=== PATIENT | male | born 1935 | race Caucasian/White ===

== ENCOUNTER → 2017-06-09 | Outpatient (CLI) | payer MEDICARE, BC ==
[2017-06-09 15:21] LABS: HCT 28.9 % (39.0-53.0); HGB 8.7 gm/dL (13.0-17.5); Hypochromasia Marked; MCHC 30.2 g/dL (31.0-37.0); Macrocytosis Slight; Mean Platelet Volume 8.2; Platelet Count 245 k/uL (150-450); Poikilocytosis Slight; RDW 15.6 % (11.5-15.5); WBC 5.2 k/uL (3.8-10.6)
[2017-06-09 15:23] LABS: MCV 99.4 fL (80.0-100.0)
[2017-06-09 15:26] LABS: Appearance,Urine Cloudy (Clear); Bacteria,Urine Few /hpf; Bilirubin,Urine Negative (Negative); Blood,Urine Negative (Negative); Color,Urine Light Yellow; Glucose,Urine (UA) Negative (Negative); Hyaline Casts,Urine 6 /lpf (0-2); Ketones,Urine Negative (Negative); Leukocyte Esterase,Urine Large (Negative); Mucus,Urine Rare /hpf; Nitrite,Urine Negative (Negative); PH, Urine 6.5 (5.0-8.0); Protein,Urine Negative (Negative); RBC,Urine 2 /hpf (0-5); Specific Gravity,Urine 1.006 (1.001-1.035); Urobilinogen,Urine <2.0 mg/dL (<2.0); WBC,Urine >182 /hpf (0-5)
[2017-06-09 15:36] LABS: Albumin 3.7 g/dL (3.5-5.0); Calcium 9.5 mg/dL (8.4-10.2); Phosphorus 4.2 mg/dL (2.5-4.5); Total Bilirubin 0.3 mg/dL (0.2-1.3); Total Protein 6.3 g/dL (6.3-8.2)
[2017-06-09 15:39] LABS: Potassium 5.8 mmol/L (3.5-5.1)
== END | disposition home or self-care (01) ==
LOC: LABWHC1 14:37
PROVIDERS: ATTEND Family Medicine
DX: N18.4 Chronic kidney disease, stage 4 (severe) (principal); R89.9 Unspecified abnormal finding in specimens from other organs, systems and tissues
CPT/HCPCS: 36415; 80053; 81001; 84100; 85027; 87077; 87086; 87186

== ENCOUNTER → 2017-06-09 | Outpatient (CLI) | payer MEDICARE, BC ==
--- NOTE | 2017-06-09 14:34 | US ---
EXAMINATION TYPE: US kidneys/renal and bladder DATE OF EXAM: 06/09/2017 COMPARISON: NONE CLINICAL HISTORY: N18.4 CHR KIDNEY DISEASE. EXAM MEASUREMENTS: Right Kidney: 9.6 x 4.2 x 6.2 cm Left Kidney: 10.1 x 4.4 x 5.3 cm Right Kidney: No hydronephrosis or masses seen Left Kidney: several cysts, largest measures 1.8 x 1.7 x 1.7 cm laterally. Bladder: wnl Bilateral Jets seen: No There is no evidence for hydronephrosis at this point in time. No nephrolithiasis is seen. No abida s are identified. The urinary bladder is anechoic. Bilateral ureteral jets are seen. IMPRESSION: Simple cyst left kidney.
== END | disposition home or self-care (01) ==
LOC: RADUSWWP 13:58
PROVIDERS: ATTEND Family Medicine
DX: N28.1 Cyst of kidney, acquired (principal); N18.4 Chronic kidney disease, stage 4 (severe)
CPT/HCPCS: 36415; 76770; 80053; 81001; 84100; 85027; 87077; 87086; 87186

== ENCOUNTER 2017-06-11 18:10 | Emergency (ER) | payer MEDICARE, BC ==
[2017-06-11 18:37] VITALS: RESP 18
--- NOTE | 2017-06-11 19:26 | ED ---
General Adult HPI - General Chief complaint: Dizziness Stated complaint: Low hemoglobin Time Seen by Provider: 06/11/17 19:10 Source: patient, RN notes reviewed, old records reviewed Mode of arrival: wheelchair Limitations: no limitations - History of Present Illness Initial comments: 82-year-old male presents for evaluation of lightheadedness and dizziness. Symptoms are consistent with patient's anemia. He states he feels like this when his blood counts are low. He has history of GI bleed, with no specific location of bleeding. He has had multiple endoscopies. Patient did have an episode several months ago where he underwent endoscopy and had a cardiac arrest. He does not want any further evaluation of his GI bleeding. He also has history of CK D. Patient is not currently on dialysis. Patient states he has some rectal bleeding from time to time. No melena. Patient denies chest pain or shortness of breath. Denies fever or chills. Patient does report bilateral lower extremity swelling. - Related Data Home Medications Medication Instructions Recorded Confirmed Atorvastatin [Lipitor] 20 mg PO DAILY@2100 05/10/17 06/11/17 Bumetanide 2 mg PO DAILY 05/10/17 06/11/17 Calcium Acetate [Phoslo] 667 mg PO TID-W/MEALS 05/10/17 06/11/17 Carvedilol [Coreg] 3.125 mg PO BID 05/10/17 06/11/17 Ferrous Sulfate [Feosol] 325 mg PO BID 05/10/17 06/11/17 Folic Acid 1 mg PO DAILY 05/10/17 06/11/17 HYDROcodone/APAP 5-325MG [[place] 1 tab PO Q6H PRN 05/10/17 06/11/17 5-325] Nitroglycerin Sl Tabs [Nitrostat] 0.4 mg SUBLINGUAL Q5M PRN 05/10/17 06/11/17 Polyethylene Glycol 3350 [Miralax] 17 gm PO DAILY 05/10/17 06/11/17 Spironolactone 50 mg PO Q48H 05/10/17 06/11/17 Januvia (Unknown Strength) 1 tab PO DAILY 06/11/17 06/11/17 Sodium Polystyrene Sulfonate 15 gm PO BID 06/11/17 06/11/17 [Kayexalate] Allergies Allergy/AdvReac Type Severity Reaction Status Date / Time No Known Allergies Allergy Verified 06/11/17 19:43 Review of Systems ROS Statement: Those systems with pertinent positive or pertinent negative responses have been documented in the HPI. ROS Other: All systems not noted in ROS Statement are negative. Past Medical History Past Medical History: Atrial Flutter, Heart Failure, COPD, Hyperlipidemia, Hypertension, Myocardial Infarction ([place]) Additional Past Medical History / Comment(s): low hgb History of Any Multi-Drug Resistant Organisms: None Reported Past Surgical History: Cardiac Valve Replacement, Cholecystectomy, Heart Catheterization With Stent Past Psychological History: No Psychological Hx Reported Smoking Status: Never smoker Past Alcohol Use History: Occasional Past Drug Use History: None Reported General Exam Limitations: no limitations Course Vital Signs 06/11/17 06/11/17 06/11/17 18:35 19:25 20:23 Temperature 97.1 F L Pulse Rate 79 81 Pulse Rate [ 73 Independent Producer ] Respiratory 18 18 Rate Blood Pressure 162/59 131/53 O2 Sat by Pulse 98 100 Oximetry 06/11/17 06/11/17 06/11/17 20:40 20:45 20:55 Temperature 98.0 F 98 F 97.8 F Pulse Rate 74 77 69 Pulse Rate [ Independent Producer ] Respiratory 18 18 18 Rate Blood Pressure 113/52 131/66 140/85 O2 Sat by Pulse Oximetry 06/11/17 06/11/17 06/11/17 21:10 21:40 22:44 Temperature 97.9 F 97.3 F L 97.7 F Pulse Rate 72 68 82 Pulse Rate [ Independent Producer ] Respiratory 18 18 18 Rate Blood Pressure 122/60 120/62 115/59 O2 Sat by Pulse 99 Oximetry - Reevaluation(s) Reevaluation #1: 06/11/17 23:28 Multiple evaluations, patient's vitals remained stable, he is without complaints. After transfusion he states he feels much better. EKG Findings - EKG Comments: EKG Findings:: EKG shows atrial fibrillation, right bundle branch block, ventricular rate 73, QRS duration 144, QTC 480 Medical Decision Making - Medical Decision Making 82-year-old male history of chronic anemia, chronic kidney disease and recurrent GI bleed. Laboratory studies are obtained, patient has normal white blood cell count 4.7, hemoglobin is 7.2 from recent baseline of 8.0 BUN significantly elevated along with creatinine 2.0 from a recent baseline of 1.9. Chest x-ray shows small right-sided pleural effusion, mild cardiomegaly, no central venous congestion. Patient is given 1 unit of packed RBCs in emergency prompt. He does not want observation for further evaluation or treatment. He wishes to be discharged home. He will follow-up with both his primary care physician. Diagnosis: Anemia of chronic kidney disease - Lab Data Result diagrams: 06/11/17 19:23 06/11/17 19:23 Lab Results 06/11/17 06/11/17 06/11/17 Range/Units 19:23 19:23 19:23 WBC 4.7 (3.8-10.6) k/uL RBC 2.53 L (4.30-5.90) m/uL Hgb 7.2 L (13.0-17.5) gm/dL Hct 24.5 L (39.0-53.0) % MCV 96.8 (80.0-100.0) fL MCH 28.5 (25.0-35.0) pg MCHC 29.5 L (31.0-37.0) g/dL RDW 16.0 H (11.5-15.5) % Plt Count 224 (150-450) k/uL Neutrophils % 79 % Lymphocytes % 7 % Monocytes % 8 % Eosinophils % 2 % Basophils % 1 % Neutrophils # 3.7 (1.3-7.7) k/uL Lymphocytes # 0.3 L (1.0-4.8) k/uL Monocytes # 0.4 (0-1.0) k/uL Eosinophils # 0.1 (0-0.7) k/uL Basophils # 0.0 (0-0.2) k/uL Hypochromasia Marked Poikilocytosis Slight APTT (22.0-30.0) sec Sodium 137 (137-145) mmol/L Potassium 4.8 (3.5-5.1) mmol/L Chloride 98 (98-107) mmol/L Carbon Dioxide 27 (22-30) mmol/L Anion Gap 12 mmol/L BUN 102 H* (9-20) mg/dL Creatinine 2.00 H (0.66-1.25) mg/dL Est GFR (MDRD) Af Amer 39 (>60 ml/min/1.73 sqM) Est GFR (MDRD) Non-Af 32 (>60 ml/min/1.73 sqM) Glucose 112 H (74-99) mg/dL Plasma Lactic Acid Reyes (0.7-2.0) mmol/L Calcium 9.2 (8.4-10.2) mg/dL Total Bilirubin 0.3 (0.2-1.3) mg/dL AST 22 (17-59) U/L ALT 52 (21-72) U/L Alkaline Phosphatase 86 (38-126) U/L Total Creatine Kinase <20 L (55-170) U/L CK-MB (CK-2) 2.9 H* (0.0-2.4) ng/mL CK-MB (CK-2) Rel Index Troponin I 0.038 H* (0.000-0.034) ng/mL Total Protein 5.9 L (6.3-8.2) g/dL Albumin 3.4 L (3.5-5.0) g/dL Blood Type Blood Type Recheck Antibody Screen Crossmatch Spec Expiration Date 06/11/17 06/11/17 06/11/17 Range/Units 19:23 19:23 19:23 WBC (3.8-10.6) k/uL RBC (4.30-5.90) m/uL Hgb (13.0-17.5) gm/dL Hct (39.0-53.0) % MCV (80.0-100.0) fL MCH (25.0-35.0) pg MCHC (31.0-37.0) g/dL RDW (11.5-15.5) % Plt Count (150-450) k/uL Neutrophils % % Lymphocytes % % Monocytes % % Eosinophils % % Basophils % % Neutrophils # (1.3-7.7) k/uL Lymphocytes # (1.0-4.8) k/uL Monocytes # (0-1.0) k/uL Eosinophils # (0-0.7) k/uL Basophils # (0-0.2) k/uL Hypochromasia Poikilocytosis APTT 22.0 (22.0-30.0) sec Sodium (137-145) mmol/L Potassium (3.5-5.1) mmol/L Chloride (98-107) mmol/L Carbon Dioxide (22-30) mmol/L Anion Gap mmol/L BUN (9-20) mg/dL Creatinine (0.66-1.25) mg/dL Est GFR (MDRD) Af Amer (>60 ml/min/1.73 sqM) Est GFR (MDRD) Non-Af (>60 ml/min/1.73 sqM) Glucose (74-99) mg/dL Plasma Lactic Acid Reyes 1.1 (0.7-2.0) mmol/L Calcium (8.4-10.2) mg/dL Total Bilirubin (0.2-1.3) mg/dL AST (17-59) U/L ALT (21-72) U/L Alkaline Phosphatase (38-126) U/L Total Creatine Kinase (55-170) U/L CK-MB (CK-2) (0.0-2.4) ng/mL CK-MB (CK-2) Rel Index Troponin I (0.000-0.034) ng/mL Total Protein (6.3-8.2) g/dL Albumin (3.5-5.0) g/dL Blood Type O Positive Blood Type Recheck No Antibody Screen NEGATIVE Crossmatch See Detail Spec Expiration Date 06/14/20172322 Disposition Clinical Impression: Anemia in chronic kidney disease, Symptomatic anemia Disposition: HOME SELF-CARE Condition: Fair Instructions: Chronic Kidney Disease (ED), Anemia (ED) Referrals: Ronak Chairez MD [Primary Care Provider] - 1-2 days Time of Disposition: 22:02
[2017-06-11 19:38] LABS: Basophils % (A) 1 %; Eosinophils # (A) 0.1 k/uL (0-0.7); Eosinophils % (A) 2 %; HCT 24.5 % (39.0-53.0); HGB 7.2 gm/dL (13.0-17.5); Hypochromasia Marked; Lymphocytes # (A) 0.3 k/uL (1.0-4.8); Lymphocytes % (A) 7 %; MCH 28.5 pg (25.0-35.0); MCHC 29.5 g/dL (31.0-37.0); MCV 96.8 fL (80.0-100.0); Mean Platelet Volume 7.8; Monocytes # (A) 0.4 k/uL (0-1.0); Monocytes % (A) 8 %; Neutrophils # (A) 3.7 k/uL (1.3-7.7); Neutrophils % (A) 79 %; Platelet Count 224 k/uL (150-450); Poikilocytosis Slight; RBC 2.53 m/uL (4.30-5.90); WBC 4.7 k/uL (3.8-10.6)
--- NOTE | 2017-06-11 19:48 | XR ---
EXAMINATION TYPE: XR chest 2V DATE OF EXAM: 06/11/2017 COMPARISON: NONE HISTORY: Dizziness TECHNIQUE: Frontal and lateral views of the chest are obtained. FINDINGS: There is some blunting of right costophrenic angle. There is no heart failure. Thoracic ao rta is atheromatous. There are sternal wires. There are chest leads. Bony thorax is intact. Heart is slightly enlarged. IMPRESSION: Small right pleural effusion. Mild cardiomegaly. No heart failure seen.
[2017-06-11 19:52] LABS: Albumin 3.4 g/dL (3.5-5.0); Calcium 9.2 mg/dL (8.4-10.2); Potassium 4.8 mmol/L (3.5-5.1); Total Bilirubin 0.3 mg/dL (0.2-1.3); Total Protein 5.9 g/dL (6.3-8.2)
[2017-06-11 19:54] LABS: Creatine Kinase <20 U/L (55-170)
[2017-06-11 20:07] LABS: Creatine Kinase MB 2.9 ng/mL (0.0-2.4); Troponin I 0.038 ng/mL (0.000-0.034)
[2017-06-11 22:48] VITALS: BP 115/59; PULSE 82; TEMP 97.7
== END 2017-06-11 23:44 | disposition home or self-care (01) ==
LOC: EC 18:10
DX: N18.9 Chronic kidney disease, unspecified (principal); D63.1 Anemia in chronic kidney disease; R79.89 Other specified abnormal findings of blood chemistry; I48.92 Unspecified atrial flutter; I11.0 Hypertensive heart disease with heart failure; I50.9 Heart failure, unspecified; E78.5 Hyperlipidemia, unspecified; I25.2 Old myocardial infarction; Z79.84 Long term (current) use of oral hypoglycemic drugs; Z79.899 Other long term (current) drug therapy; Z79.02 Long term (current) use of antithrombotics/antiplatelets; Z95.5 Presence of coronary angioplasty implant and graft
CPT/HCPCS: 99284; 36415; 93005; 86900; 86901; 80053; 82550; 82553; 83605; 84484; 85025; 85730; 86850; 86920; 71046; P9016

== ENCOUNTER 2017-07-14 17:36 | Observation (INO) | payer MEDICARE, BC ==
[2017-07-14] MEDS ORDERED: SODIUM CHLORIDE 0.9% 500 ML IV STA (17:53)
--- NOTE | 2017-07-14 17:59 | ED ---
General Adult HPI - General Chief complaint: Weakness Stated complaint: Weakness Time Seen by Provider: 07/14/17 17:40 Source: patient, RN notes reviewed Mode of arrival: wheelchair Limitations: no limitations - History of Present Illness Initial comments: This is a 82-year-old male who presents emergency Department complaining of weakness. Patient states he is also mildly short of breath. Patient has past medical history significant for anemia. Patient states she's had come in for multiple transfusions in the past. Patient states they've done scopes on him and never found a source of bleeding. Patient denies any chest pain palpitations. Patient denies any headache patient denies numbness or focal weakness. Patient denies any nausea vomiting or diarrhea. Patient states she' s just become weaker and weaker over the last few days and today started having some shortness of breath. Patient states this is typical of his anemia. - Related Data Home Medications Medication Instructions Recorded Confirmed Atorvastatin [Lipitor] 20 mg PO DAILY@2100 05/10/17 07/14/17 Bumetanide 2 mg PO DAILY 05/10/17 07/14/17 Calcium Acetate [Phoslo] 667 mg PO TID-W/MEALS 05/10/17 07/14/17 Carvedilol [Coreg] 3.125 mg PO BID 05/10/17 07/14/17 Ferrous Sulfate [Feosol] 325 mg PO BID 05/10/17 07/14/17 Folic Acid 1 mg PO DAILY 05/10/17 07/14/17 HYDROcodone/APAP 5-325MG [[place] 1 tab PO Q6H PRN 05/10/17 07/14/17 5-325] Nitroglycerin Sl Tabs [Nitrostat] 0.4 mg SUBLINGUAL Q5M PRN 05/10/17 07/14/17 Polyethylene Glycol 3350 [Miralax] 17 gm PO DAILY 05/10/17 07/14/17 Spironolactone 50 mg PO Q48H 05/10/17 07/14/17 Sodium Polystyrene Sulfonate 15 gm PO BID 06/11/17 07/14/17 [Kayexalate] Allergies Allergy/AdvReac Type Severity Reaction Status Date / Time No Known Allergies Allergy Verified 07/14/17 18:23 Review of Systems ROS Statement: Those systems with pertinent positive or pertinent negative responses have been documented in the HPI. ROS Other: All systems not noted in ROS Statement are negative. Past Medical History Past Medical History: Atrial Flutter, Heart Failure, COPD, Hyperlipidemia, Hypertension, Myocardial Infarction ([place]) Additional Past Medical History / Comment(s): low hgb History of Any Multi-Drug Resistant Organisms: None Reported Past Surgical History: Cardiac Valve Replacement, Cholecystectomy, Heart Catheterization With Stent Past Psychological History: No Psychological Hx Reported Smoking Status: Never smoker Past Alcohol Use History: Occasional Past Drug Use History: None Reported General Exam - General Exam Comments Initial Comments: GENERAL: Patient is well-developed and well-nourished. Patient is nontoxic and well- hydrated and is in mild distress. ENT: Neck is soft and supple. No significant lymphadenopathy is noted. Oropharynx is clear. Moist mucous membranes. Neck has full range of motion without eliciting any pain. EYES: The sclera were anicteric and conjunctiva were pink and moist. Extraocular movements were intact and pupils were equal round and reactive to light. Eyelids were unremarkable. PULMONARY: Unlabored respirations. Good breath sounds bilaterally. No audible rales rhonchi or wheezing was noted. CARDIOVASCULAR: There is a regular rate and rhythm without any murmurs gallops or rubs. ABDOMEN: Soft and nontender with normal bowel sounds. No palpable organomegaly was noted. There is no palpable pulsatile mass. SKIN: Patient's skin is pale. NEUROLOGIC: Patient is alert and oriented x3. Cranial nerves II through XII are grossly intact. Motor and sensory are also intact. Normal speech, volume and content. Symmetrical smile. MUSCULOSKELETAL: Normal extremities with adequate strength and full range of motion. LYMPHATICS: No significant lymphadenopathy is noted PSYCHIATRIC: Normal psychiatric evaluation. Limitations: no limitations Course Vital Signs 07/14/17 07/14/17 07/14/17 17:38 18:22 18:46 Temperature 97.0 F L Pulse Rate 78 75 Respiratory 18 20 19 Rate Blood Pressure 175/73 140/64 O2 Sat by Pulse 97 96 Oximetry 07/14/17 19:10 Temperature Pulse Rate 80 Respiratory 19 Rate Blood Pressure 149/68 O2 Sat by Pulse 95 Oximetry Medical Decision Making - Medical Decision Making EKG shows atrial fibrillation at a rate 85 bpm QRS is 150 QT intervals 432 QTC is 5:15. Patient's EKG is compared to an old EKG no acute abnormalities are noted. I spoke with the nurse practitioner for Dr. Roper admitted the patient and wrote admitting orders Patient received 2 g of Rocephin emergency department - Lab Data Result diagrams: 07/14/17 18:14 07/14/17 18:14 Lab Results 07/14/17 07/14/17 07/14/17 Range/Units 18:14 18:14 18:14 WBC 4.6 (3.8-10.6) k/uL RBC 3.03 L (4.30-5.90) m/uL Hgb 8.9 L D (13.0-17.5) gm/dL Hct 31.0 L (39.0-53.0) % MCV 102.2 H D (80.0-100.0) fL MCH 29.4 (25.0-35.0) pg MCHC 28.7 L (31.0-37.0) g/dL RDW 15.3 (11.5-15.5) % Plt Count 165 (150-450) k/uL Neutrophils % 75 % Lymphocytes % 8 % Monocytes % 12 % Eosinophils % 2 % Basophils % 1 % Neutrophils # 3.5 (1.3-7.7) k/uL Lymphocytes # 0.4 L (1.0-4.8) k/uL Monocytes # 0.5 (0-1.0) k/uL Eosinophils # 0.1 (0-0.7) k/uL Basophils # 0.0 (0-0.2) k/uL Hypochromasia Marked Poikilocytosis Slight Macrocytosis Slight PT (9.0-12.0) sec INR (<1.2) APTT (22.0-30.0) sec Sodium 141 (137-145) mmol/L Potassium 4.5 (3.5-5.1) mmol/L Chloride 98 (98-107) mmol/L Carbon Dioxide 28 (22-30) mmol/L Anion Gap 15 mmol/L BUN 78 H (9-20) mg/dL Creatinine 1.88 H (0.66-1.25) mg/dL Est GFR (MDRD) Af Amer 42 (>60 ml/min/1.73 sqM) Est GFR (MDRD) Non-Af 35 (>60 ml/min/1.73 sqM) Glucose 155 H (74-99) mg/dL Calcium 9.3 (8.4-10.2) mg/dL Magnesium 2.3 (1.6-2.3) mg/dL Total Bilirubin 0.4 (0.2-1.3) mg/dL AST 32 (17-59) U/L ALT 36 (21-72) U/L Alkaline Phosphatase 88 (38-126) U/L Total Creatine Kinase <20 L (55-170) U/L CK-MB (CK-2) 3.3 H* (0.0-2.4) ng/mL CK-MB (CK-2) Rel Index Troponin I 0.045 H* (0.000-0.034) ng/mL Total Protein 6.2 L (6.3-8.2) g/dL Albumin 3.6 (3.5-5.0) g/dL Urine Color Urine Appearance (Clear) Urine pH (5.0-8.0) Ur Specific [place] (1.001-1.035) Urine Protein (Negative) Urine Glucose (UA) (Negative) Urine Ketones (Negative) Urine Blood (Negative) Urine Nitrite (Negative) Urine Bilirubin (Negative) Urine Urobilinogen (<2.0) mg/dL Ur Leukocyte Esterase (Negative) Urine RBC (0-5) /hpf Urine WBC (0-5) /hpf Urine WBC Clumps (None) /hpf Urine Bacteria (None) /hpf Blood Type Blood Type Recheck Antibody Screen Spec Expiration Date 07/14/17 07/14/17 07/14/17 Range/Units 18:14 18:14 18:56 WBC (3.8-10.6) k/uL RBC (4.30-5.90) m/uL Hgb (13.0-17.5) gm/dL Hct (39.0-53.0) % MCV (80.0-100.0) fL MCH (25.0-35.0) pg MCHC (31.0-37.0) g/dL RDW (11.5-15.5) % Plt Count (150-450) k/uL Neutrophils % % Lymphocytes % % Monocytes % % Eosinophils % % Basophils % % Neutrophils # (1.3-7.7) k/uL Lymphocytes # (1.0-4.8) k/uL Monocytes # (0-1.0) k/uL Eosinophils # (0-0.7) k/uL Basophils # (0-0.2) k/uL Hypochromasia Poikilocytosis Macrocytosis PT 10.9 (9.0-12.0) sec INR 1.1 (<1.2) APTT 17.9 L (22.0-30.0) sec Sodium (137-145) mmol/L Potassium (3.5-5.1) mmol/L Chloride (98-107) mmol/L Carbon Dioxide (22-30) mmol/L Anion Gap mmol/L BUN (9-20) mg/dL Creatinine (0.66-1.25) mg/dL Est GFR (MDRD) Af Amer (>60 ml/min/1.73 sqM) Est GFR (MDRD) Non-Af (>60 ml/min/1.73 sqM) Glucose (74-99) mg/dL Calcium (8.4-10.2) mg/dL Magnesium (1.6-2.3) mg/dL Total Bilirubin (0.2-1.3) mg/dL AST (17-59) U/L ALT (21-72) U/L Alkaline Phosphatase (38-126) U/L Total Creatine Kinase (55-170) U/L CK-MB (CK-2) (0.0-2.4) ng/mL CK-MB (CK-2) Rel Index Troponin I (0.000-0.034) ng/mL Total Protein (6.3-8.2) g/dL Albumin (3.5-5.0) g/dL Urine Color Light Yellow Urine Appearance Turbid (Clear) Urine pH 6.5 (5.0-8.0) Ur Specific [place] 1.009 (1.001-1.035) Urine Protein Trace H (Negative) Urine Glucose (UA) Negative (Negative) Urine Ketones Negative (Negative) Urine Blood Small H (Negative) Urine Nitrite Positive (Negative) Urine Bilirubin Negative (Negative) Urine Urobilinogen <2.0 (<2.0) mg/dL Ur Leukocyte Esterase Large H (Negative) Urine RBC 13 H (0-5) /hpf Urine WBC >182 H (0-5) /hpf Urine WBC Clumps Many H (None) /hpf Urine Bacteria Moderate H (None) /hpf Blood Type O Positive Blood Type Recheck No Antibody Screen NEGATIVE Spec Expiration Date 07/17/2017 - 231 Disposition Clinical Impression: Generalized weakness, Urinary tract infection Disposition: ADMITTED IP TO THIS HOSP Referrals: Ronak Chairez MD [Primary Care Provider] - 1-2 days Time of Disposition: 19:44
[2017-07-14 18:38] LABS: Basophils % (A) 1 %; Eosinophils # (A) 0.1 k/uL (0-0.7); Eosinophils % (A) 2 %; Hypochromasia Marked; Lymphocytes # (A) 0.4 k/uL (1.0-4.8); Lymphocytes % (A) 8 %; MCH 29.4 pg (25.0-35.0); MCHC 28.7 g/dL (31.0-37.0); Macrocytosis Slight; Mean Platelet Volume 10.1; Monocytes # (A) 0.5 k/uL (0-1.0); Monocytes % (A) 12 %; Neutrophils # (A) 3.5 k/uL (1.3-7.7); Neutrophils % (A) 75 %; Platelet Count 165 k/uL (150-450); Poikilocytosis Slight; RBC 3.03 m/uL (4.30-5.90); RDW 15.3 % (11.5-15.5); WBC 4.6 k/uL (3.8-10.6)
[2017-07-14 18:39] LABS: HGB 8.9 gm/dL (13.0-17.5); MCV 102.2 fL (80.0-100.0)
[2017-07-14 18:46] LABS: Albumin 3.6 g/dL (3.5-5.0); Calcium 9.3 mg/dL (8.4-10.2); Potassium 4.5 mmol/L (3.5-5.1); Total Bilirubin 0.4 mg/dL (0.2-1.3); Total Protein 6.2 g/dL (6.3-8.2)
[2017-07-14 18:49] LABS: INR 1.1 (<1.2); Prothrombin Time 10.9 sec (9.0-12.0)
[2017-07-14 18:50] LABS: Partial Thromboplastin Time 17.9 sec (22.0-30.0)
[2017-07-14 18:51] LABS: Creatine Kinase <20 U/L (55-170)
[2017-07-14 19:05] LABS: Creatine Kinase MB 3.3 ng/mL (0.0-2.4)
[2017-07-14 19:07] LABS: Troponin I 0.045 ng/mL (0.000-0.034)
[2017-07-14 19:21] LABS: Appearance,Urine Turbid (Clear); Bacteria,Urine Moderate /hpf; Bilirubin,Urine Negative (Negative); Blood,Urine Small (Negative); Color,Urine Light Yellow; Glucose,Urine (UA) Negative (Negative); Ketones,Urine Negative (Negative); Leukocyte Esterase,Urine Large (Negative); PH, Urine 6.5 (5.0-8.0); Protein,Urine Trace (Negative); RBC,Urine 13 /hpf (0-5); Specific Gravity,Urine 1.009 (1.001-1.035); Urobilinogen,Urine <2.0 mg/dL (<2.0); WBC,Urine >182 /hpf (0-5)
[2017-07-14] MEDS ORDERED: cefTRIAXone IN SWFI 1,000 MG/10 ML SYRINGE IVP STA (19:43)
[2017-07-14] MEDS ORDERED: SODIUM CHLORIDE 0.9% 1,000 ML IV ONE (19:44)
[2017-07-14] MEDS ORDERED: cefTRIAXone IN SWFI 2,000 MG/20 ML SYRINGE IVP STA (19:46)
[2017-07-14] MEDS ORDERED: HYDROcodone/APAP 5-325MG 1 EACH TAB PO PRN (21:53)
[2017-07-14] MEDS: CARVEDILOL 3.125 MG TAB PO SCH (22:14)
[2017-07-14] MEDS: FERROUS SULFATE 325 MG TAB PO SCH (22:14)
[2017-07-14] MEDS: SODIUM POLYSTYRENE SULFONATE 15 GM/60 ML BOTTLE PO SCH (22:14)
[2017-07-15] MEDS ORDERED: NITROGLYCERIN SL TABS 0.4 MG TAB SUBLINGUAL PRN (00:22)
--- NOTE | 2017-07-15 06:46 | HP ---
HISTORY AND PHYSICAL CHIEF COMPLAINT: The chief complaints are weakness and UTI. HISTORY OF PRESENT ILLNESS: This 82-year-old gentleman with a past medical history of multiple medical problems including history of CAD, history of CHF, COPD, hypertension, hyperlipidemia, history of CAD, CABG, cardiac ablation being followed by Dr. Chairez in the outpatient setting was admitted with generalized tiredness and weakness. The patient was found to have evidence of UTI. Patient had multiple laboratory abnormalities also. The patient admitted for further evaluation and treatment. There is no history of any fever or rigors. No history of headache, loss of consciousness, seizures. Patient is on IV antibiotics. PAST MEDICAL HISTORY: History of CAD, CABG, history of cardiac valve replacement, COPD, hypertension, hyperlipidemia, myocardial infarction, DJD. MEDICATIONS: Medications prior to admission include home medications: 1. Aldactone 50 mg q.48 hours. 2. [place] 5 mg q.6 p.r.n. 3. PhosLo 667 p.o. t.i.d. with meals. 4. Lipitor 20 mg p.o. daily. 5. Nitrostat 0.4 sublingual p.r.n. 6. Kayexalate 15 grams p.o. b.i.d. 7. MiraLAX 17 grams daily. 8. Folic acid 1 mg daily. 9. Iron sulfate 325 mg p.o. b.i.d. 10.Coreg 3.125 mg p.o. b.i.d. 11.Bumex 2 mg p.o. daily. ALLERGIES: Allergies are none. FAMILY HISTORY: No history of heart disease or strokes in family. SOCIAL HISTORY: Previous history of smoking. No history of alcohol. REVIEW OF SYSTEMS: ENT: Diminished hearing, diminished vision. CARDIOVASCULAR SYSTEM: No angina, palpitations. RESPIRATORY SYSTEM: No cough. GI: No nausea. : As mentioned earlier. NERVOUS SYSTEM: As mentioned earlier. ALLERGY/IMMUNOLOGY: No history of asthma. MUSCULOSKELETAL: As mentioned earlier. HEMATOLOGY/ONCOLOGY: No history of anemia. ENDOCRINE: No history of diabetes or hypothyroidism. DERMATOLOGY: Negative. RHEUMATOLOGY: Negative. PSYCHIATRY: As mentioned earlier. PHYSICAL EXAMINATION: The patient is alert and oriented . Pulse is 74, blood pressure 166/80, respiration 1, temperature 97.6, pulse ox 100% on room air. HEENT: Conjunctivae normal. Oral mucosa moist. Neck is no jugular venous distention. No carotid bruit. No lymph node enlargement. CARDIOVASCULAR: S1 and S2 muffled. No S3 or S4. RESPIRATORY: Breath sounds diminished at the bases. A few rhonchi, no crackles. ABDOMEN: Soft, nontender. No mass palpable. LEGS: No edema, no swelling. NERVOUS SYSTEM: Higher functions as mentioned earlier. Moves all 4 limbs. No focal motor or sensory deficits. LYMPHATICS: No lymphadenopathy of the neck, axillae or groin. SKIN: No ulcer, rash or bleeding. LABS: Labs at this time show WBC 4.2, hemoglobin is 8.9, MCV 102, creatinine is 1.88. ASSESSMENT: 1. Generalized tiredness and weakness, possibly urinary tract infection. 2. Troponin 0.045 indeterminate. 3. Possible mild acute on chronic renal failure. 4. Anemia. 5. History coronary artery disease and CABG. 6. History of congestive heart failure. 7. History of chronic obstructive pulmonary disease. 8. Hypertension. 9. Hyperlipidemia. 10.History of degenerative joint disease. 11.History of cardiac arrhythmia. 12.History of cholecystectomy. 13.History of cardiac valve replacement. 14.Remote history of nicotine dependence. RECOMMENDATIONS AND DISCUSSION: This 82-year-old gentleman who presented with multiple complex medical issues, we will monitor the patient closely, continue the current medication, continue symptomatic treatment. Empiric antibiotics will be initiated. Otherwise, resume the home medications, orthostatic vitals and we will hydrate the patient carefully and repeat labs in the morning. Guarded prognosis because of the multiple complex medical issues and further recommendations will follow. Cultures will obtain. A copy of dictation forwarded to Dr. Chairez who is the primary physician. MMODL / IJN: [id number] / RADHAMES
--- NOTE | 2017-07-15 07:24 | XR ---
EXAMINATION TYPE: XR chest 1V portable DATE OF EXAM: 07/15/2017 CLINICAL HISTORY: Difficulty breathing progress study. TECHNIQUE: Single AP portable upright view of the chest is obtained. COMPARISON: Chest x-ray from June 11, 2017 FINDINGS: Sternal wires and mediastinal clips are redemonstrated. There is worsening small right ple ural effusion with new right basilar atelectasis and/or infiltrate. There is new left basilar opacity . Upper lungs remain clear without pneumothorax. Cardiac silhouette size is stable and mildly enlarge d with atherosclerotic thoracic aorta. Osseous structures are intact. IMPRESSION: Cardiomegaly with worsening small right pleural effusion and developing bibasilar infiltr ate and/or atelectasis noted.
[2017-07-15] MEDS: CALCIUM ACETATE 667 MG CAP PO SCH ×3 (08:27→17:03)
[2017-07-15] MEDS: HEPARIN SODIUM,PORCINE 5,000 UNIT/ML 1 ML VIAL SQ SCH ×2 (08:28→20:19)
[2017-07-15] MEDS: FOLIC ACID 1 MG TAB PO SCH (08:28)
[2017-07-15] MEDS: FERROUS SULFATE 325 MG TAB PO SCH ×2 (08:28→17:03)
[2017-07-15] MEDS: POLYETHYLENE GLYCOL 3350 17 GM POWD.PACK PO SCH (08:28)
[2017-07-15] MEDS: CARVEDILOL 3.125 MG TAB PO SCH ×2 (08:28→17:03)
[2017-07-15] MEDS: SODIUM POLYSTYRENE SULFONATE 15 GM/60 ML BOTTLE PO SCH (11:00)
--- NOTE | 2017-07-15 19:16 | PN ---
PROGRESS NOTE DATE OF SERVICE: 07/15/2016. This 82-year-old gentleman admitted with weakness and tiredness was found to have UTI. No chest pain. No palpitations. No fever. Patient was closely monitored. Cultures are negative so far. EXAM: Alert and oriented x3. Pulse is 73, blood pressure 120/59, respiration 18, temperature 98 degrees, pulse ox 98% on room air. HEENT: Conjunctivae normal. NECK: No jugular venous distention. CARDIOVASCULAR: S1, S2. RESPIRATORY: Breath sounds diminished in the bases. A few rhonchi, no crackles. ABDOMEN: Soft, nontender. LEGS: No edema. NERVOUS SYSTEM: No focal deficits. LABS: Troponin 0.048 and UA noted. Otherwise hemoglobin is 8.9. ASSESSMENT: 1. Generalized weakness and tiredness, possibly urinary tract infection with sepsis. 2. Troponin 0.05 indeterminate. 3. Possible mild acute on chronic renal failure. 4. Anemia. 5. History of coronary artery disease, CABG. 6. History of congestive heart failure. 7. History of chronic obstructive pulmonary disease. 8. Hypertension. 9. Hyperlipidemia. 10.History of degenerative joint disease. 11.History of cardiac arrhythmias. 12.History of cholecystectomy. 13.History of cardiac valve replacement. 14.Remote history of nicotine dependence. RECOMMENDATIONS AND DISCUSSION: I recommend to continue current management and symptomatic treatment. Otherwise at this time I recommend to continue the current management and repeat labs. On broad- spectrum antibiotics. Otherwise PT, OT evaluation. Guarded prognosis. Further recommendations to follow. MMODL / IJN: [id number] /
[2017-07-15 19:47] LABS: Basophils % (A) 1 %; Eosinophils # (A) 0.1 k/uL (0-0.7); Eosinophils % (A) 2 %; HCT 28.5 % (39.0-53.0); Hypochromasia Marked; Lymphocytes # (A) 0.4 k/uL (1.0-4.8); Lymphocytes % (A) 8 %; MCH 28.9 pg (25.0-35.0); MCV 103.3 fL (80.0-100.0); Macrocytosis Moderate; Mean Platelet Volume 9.2; Monocytes # (A) 0.5 k/uL (0-1.0); Monocytes % (A) 11 %; Neutrophils # (A) 3.2 k/uL (1.3-7.7); Neutrophils % (A) 75 %; Platelet Count 210 k/uL (150-450); Poikilocytosis Slight; RBC 2.76 m/uL (4.30-5.90); RDW 15.8 % (11.5-15.5); WBC 4.3 k/uL (3.8-10.6)
[2017-07-15 20:02] LABS: Calcium 8.9 mg/dL (8.4-10.2)
[2017-07-15] MEDS ORDERED: ATORVASTATIN 20 MG TAB PO SCH (21:00)
[2017-07-15] MEDS ORDERED: cefTRIAXone IN SWFI 1,000 MG/10 ML SYRINGE IVP SCH (21:00)
[2017-07-16 07:56] LABS: Anisocytosis Slight; Basophils % (A) 1 %; Eosinophils # (A) 0.1 k/uL (0-0.7); Eosinophils % (A) 1 %; HCT 28.5 % (39.0-53.0); HGB 8.4 gm/dL (13.0-17.5); Hypochromasia Marked; Lymphocytes # (A) 0.4 k/uL (1.0-4.8); Lymphocytes % (A) 7 %; MCHC 29.5 g/dL (31.0-37.0); Macrocytosis Slight; Mean Platelet Volume 7.8; Monocytes # (A) 0.5 k/uL (0-1.0); Monocytes % (A) 9 %; Neutrophils # (A) 4.2 k/uL (1.3-7.7); Neutrophils % (A) 79 %; Platelet Count 237 k/uL (150-450); Poikilocytosis Slight; RDW 16.2 % (11.5-15.5); WBC 5.4 k/uL (3.8-10.6)
[2017-07-16 08:12] LABS: Calcium 8.9 mg/dL (8.4-10.2)
[2017-07-16 08:14] LABS: Potassium 4.7 mmol/L (3.5-5.1)
[2017-07-16 08:41] VITALS: BP 153/72; PULSE 70; RESP 18; TEMP 97.7
[2017-07-16] MEDS: FERROUS SULFATE 325 MG TAB PO SCH (09:42)
[2017-07-16] MEDS: CARVEDILOL 3.125 MG TAB PO SCH (09:42)
[2017-07-16] MEDS: HEPARIN SODIUM,PORCINE 5,000 UNIT/ML 1 ML VIAL SQ SCH (09:42)
[2017-07-16] MEDS: FOLIC ACID 1 MG TAB PO SCH (09:42)
[2017-07-16] MEDS: POLYETHYLENE GLYCOL 3350 17 GM POWD.PACK PO SCH (09:44)
[2017-07-16] MEDS: CALCIUM ACETATE 667 MG CAP PO SCH ×2 (10:16→12:41)
--- NOTE | 2017-07-16 22:56 | DS ---
DISCHARGE SUMMARY FINAL DIAGNOSES: 1. Generalized weakness and tiredness, possibly urinary tract infection with sepsis. 2. Troponin 0.05, indeterminate. 3. Possible mild acute on chronic renal failure. 4. Anemia. 5. History of coronary artery disease, coronary artery bypass graft. 6. History of Hypertension. 7. History of hyperlipidemia. 8. History of degenerative joint disease. 9. History of cardiac catheterization. 10.Cholecystectomy. 11.History of cardiac valve replacement. 12.Remote history of nicotine dependence. DISCHARGE DISPOSITION: The patient will be discharged in stable condition with a guarded prognosis. HISTORY OF PRESENT ILLNESS: This 82-year-old gentleman with a past medical history of multiple medical problems was admitted with generalized weakness and possible UTI with sepsis. The patient was treated with antibiotics. Patient improved significantly. Urine culture showed some gram-negative bacilli to be followed up in the outpatient setting. EXAM: VITAL SIGNS: Stable. CARDIOVASCULAR: S1, S2 muffled. ABDOMEN: Soft. NERVOUS SYSTEM: Nonfocal. The patient is keen on going home. DISCHARGE DIET: Cardiac diet. FOLLOWUP: Follow up with Dr. Chairez in 2-3 days. MEDICATIONS: 1. Lipitor 20 mg p.o. daily. 2. Bumex 2 mg b.i.d. 3. PhosLo 667 p.o. t.i.d. 4. Coreg 3.125 mg p.o. b.i.d. 5. Ceftin 500 mg p.o. b.i.d. for 5 days. 6. Ancef 325 mg p.o. b.i.d. 7. Folic acid 1 mg p.o. daily. 8. [place] 5 mg every 6 hours p.r.n. 9. Nitrostat 0.4 sublingual p.r.n. 10.MiraLAX 17 g p.o. daily. 11.Kayexalate 15 mg p.o. b.i.d. 12.Aldactone 50 mg p.o. q.48 hours. Once again, the patient will be discharged in stable condition with guarded prognosis. MMODL / IJN: [id number] / MTDD
== END 2017-07-16 16:30 | disposition home or self-care (01) ==
LOC: EC 17:36 → 5MS5E 19:44 → INTOOBSV 19:44
PROVIDERS: ADMIT Hospitalist; ATTEND Hospitalist
DX: R53.1 Weakness (principal); D64.9 Anemia, unspecified; I25.10 Atherosclerotic heart disease of native coronary artery without angina pectoris; I11.0 Hypertensive heart disease with heart failure; I50.9 Heart failure, unspecified; Z95.1 Presence of aortocoronary bypass graft; J44.9 Chronic obstructive pulmonary disease, unspecified; E78.5 Hyperlipidemia, unspecified; M19.90 Unspecified osteoarthritis, unspecified site; Z90.49 Acquired absence of other specified parts of digestive tract; Z95.2 Presence of prosthetic heart valve; Z87.891 Personal history of nicotine dependence; R06.02 Shortness of breath; Z79.899 Other long term (current) drug therapy; I25.2 Old myocardial infarction; I48.92 Unspecified atrial flutter; Z95.5 Presence of coronary angioplasty implant and graft
CPT/HCPCS: 96374 ×2; 96361 ×6; 99285; 96376; 96372 ×2; 36415; 97161; 97165; 86900; 86901; 80053; 80048 ×2; 82550; 82553; 83735; 84484 ×2; 85025 ×3; 85610; 85730; 86850; 81001; 87040; 87086; 87077; 87186; 71045; G0378 ×4; J1644 ×2; J0696 ×2

== ENCOUNTER 2017-08-18 22:59 | Inpatient (IN) | payer MEDICARE, BC ==
[2017-08-18] MEDS ORDERED: IPRATROPIUM-ALBUTEROL 3 ML NEB INHALATION STA (23:07)
--- NOTE | 2017-08-18 23:09 | ED ---
General Adult HPI - General Chief complaint: Shortness of Breath Stated complaint: SOB Time Seen by Provider: 08/18/17 23:03 Source: patient, EMS, RN notes reviewed Mode of arrival: EMS Limitations: physical limitation - History of Present Illness Initial comments: Patient is a pleasant 82-year-old male presenting to the emergency Department with complaints of shortness of breath. Symptoms have progressed over the past week. Patient does have cough with occasional white sputum. No chest pain. Patient has noticed some swelling. Patient does have history of both COPD and CHF. - Related Data Home Medications Medication Instructions Recorded Confirmed Atorvastatin [Lipitor] 20 mg PO DAILY@2100 05/10/17 07/14/17 Calcium Acetate [PhosLo] 667 mg PO TID-W/MEALS 05/10/17 07/14/17 Carvedilol [Coreg] 3.125 mg PO BID 05/10/17 07/14/17 Ferrous Sulfate [Iron (65 MG 325 mg PO BID 05/10/17 07/14/17 Elemental)] Folic Acid 1 mg PO DAILY 05/10/17 07/14/17 HYDROcodone/APAP 5-325MG [[place] 1 tab PO Q6H PRN 05/10/17 07/14/17 5-325] Nitroglycerin Sl Tabs [Nitrostat] 0.4 mg SUBLINGUAL Q5M PRN 05/10/17 07/14/17 Polyethylene Glycol 3350 [Miralax] 17 gm PO DAILY 05/10/17 07/14/17 Spironolactone 50 mg PO Q48H 05/10/17 07/14/17 Sodium Polystyrene Sulfonate 15 gm PO BID 06/11/17 07/14/17 [Kayexalate] Previous Rx's Medication Instructions Recorded Bumetanide 2 mg PO DAILY #0 07/16/17 Cefuroxime Axetil [Ceftin] 500 mg PO BID #10 tab 07/16/17 Allergies Allergy/AdvReac Type Severity Reaction Status Date / Time No Known Allergies Allergy Verified 07/14/17 18:23 Review of Systems ROS Statement: Those systems with pertinent positive or pertinent negative responses have been documented in the HPI. ROS Other: All systems not noted in ROS Statement are negative. Constitutional: Denies: fever Eyes: Denies: eye pain ENT: Denies: ear pain Respiratory: Reports: cough, dyspnea Cardiovascular: Denies: chest pain Endocrine: Reports: fatigue Gastrointestinal: Denies: abdominal pain Genitourinary: Denies: dysuria Musculoskeletal: Denies: back pain Skin: Denies: rash Neurological: Denies: weakness Past Medical History Past Medical History: Coronary Artery Disease (CAD), Heart Failure, COPD, Hyperlipidemia, Hypertension, Myocardial Infarction ([place]), Osteoarthritis (OA), Renal Disease Additional Past Medical History / Comment(s): low hgb, "irreg heart rythym", arthritis in back, past gout, uti,head injury >15 years ago(a board fell and hit on head. Last Myocardial Infarction Date:: unk History of Any Multi-Drug Resistant Organisms: None Reported Past Surgical History: Cardiac Valve Replacement, Cholecystectomy, Coronary Bypass/CABG, Heart Catheterization Additional Past Surgical History / Comment(s): it was previously charted that pt had a valve replacment-senior copywriter asked pt which one or if tissue or mechanical- pt not sure(unable to verify). pt did have a card for cabg done at [facility] in [facility].vasectomy, odin cataract sx, stent to lt renal artery,"stated i havestents bothl groins" , odin carotid endarterectomies Past Anesthesia/Blood Transfusion Reactions: No Reported Reaction Additional Past Anesthesia/Blood Transfusion Reaction / Comment(s): blood transfusions-no reaction Past Psychological History: No Psychological Hx Reported Smoking Status: Former smoker Past Alcohol Use History: None Reported Past Drug Use History: None Reported - Past Family History Mother Family Medical History: No Reported History Additional Family Medical History / Comment(s): " from natural causes" Father Family Medical History: Cancer Additional Family Medical History / Comment(s): rectal cancer General Exam Limitations: physical limitation General appearance: alert, in no apparent distress Head exam: Present: atraumatic Eye exam: Present: normal appearance, PERRL ENT exam: Present: normal oropharynx Neck exam: Present: normal inspection Respiratory exam: Present: wheezes, rales Cardiovascular Exam: Present: regular rate, irregular rhythm GI/Abdominal exam: Present: soft. Absent: tenderness Extremities exam: Present: pedal edema. Absent: calf tenderness Neurological exam: Present: alert Psychiatric exam: Present: normal affect, normal mood Skin exam: Present: normal color Course Vital Signs 08/18/17 08/18/17 08/19/17 23:02 23:52 00:09 Temperature 96.9 F L Pulse Rate 77 77 77 Respiratory 17 Rate Blood Pressure 150/67 O2 Sat by Pulse 92 L Oximetry EKG Findings - EKG Comments: EKG Findings:: A. fib with a rate of 85. QRS 112. QT 392. QTC 466. Right axis. Normal QRS. Inverted T waves inferior and V6. Medical Decision Making - Medical Decision Making Patient reevaluated and updated. Case discussed with Dr. castillo, who will admit for Dr. Chairez. - Lab Data Result diagrams: 08/18/17 23:16 08/18/17 23:16 Lab Results 08/18/17 08/18/17 08/18/17 Range/Units 23:16 23:16 23:16 WBC 6.1 (3.8-10.6) k/uL RBC 3.71 L (4.30-5.90) m/uL Hgb 10.4 L (13.0-17.5) gm/dL Hct 35.9 L (39.0-53.0) % MCV 96.6 (80.0-100.0) fL MCH 28.0 (25.0-35.0) pg MCHC 28.9 L (31.0-37.0) g/dL RDW 16.2 H (11.5-15.5) % Plt Count 232 (150-450) k/uL Neutrophils % 81 % Lymphocytes % 5 % Monocytes % 9 % Eosinophils % 2 % Basophils % 0 % Neutrophils # 4.9 (1.3-7.7) k/uL Lymphocytes # 0.3 L (1.0-4.8) k/uL Monocytes # 0.6 (0-1.0) k/uL Eosinophils # 0.1 (0-0.7) k/uL Basophils # 0.0 (0-0.2) k/uL Hypochromasia Marked Anisocytosis Slight PT (9.0-12.0) sec INR (<1.2) APTT (22.0-30.0) sec Sodium 142 (137-145) mmol/L Potassium 5.2 H (3.5-5.1) mmol/L Chloride 98 (98-107) mmol/L Carbon Dioxide 29 (22-30) mmol/L Anion Gap 15 mmol/L BUN 81 H* (9-20) mg/dL Creatinine 2.20 H (0.66-1.25) mg/dL Est GFR (CKD-EPI)AfAm 31 (>60 ml/min/1.73 sqM) Est GFR (CKD-EPI)NonAf 27 (>60 ml/min/1.73 sqM) Glucose 109 H (74-99) mg/dL Calcium 9.4 (8.4-10.2) mg/dL Magnesium 2.4 H (1.6-2.3) mg/dL Total Bilirubin 0.5 (0.2-1.3) mg/dL AST 42 (17-59) U/L ALT 35 (21-72) U/L Alkaline Phosphatase 107 (38-126) U/L Total Creatine Kinase <20 L (55-170) U/L CK-MB (CK-2) 2.6 H* (0.0-2.4) ng/mL CK-MB (CK-2) Rel Index Troponin I 0.050 H* (0.000-0.034) ng/mL NT-Pro-B Natriuret Pep pg/mL Total Protein 6.4 (6.3-8.2) g/dL Albumin 3.6 (3.5-5.0) g/dL 08/18/17 08/18/17 Range/Units 23:16 23:16 WBC (3.8-10.6) k/uL RBC (4.30-5.90) m/uL Hgb (13.0-17.5) gm/dL Hct (39.0-53.0) % MCV (80.0-100.0) fL MCH (25.0-35.0) pg MCHC (31.0-37.0) g/dL RDW (11.5-15.5) % Plt Count (150-450) k/uL Neutrophils % % Lymphocytes % % Monocytes % % Eosinophils % % Basophils % % Neutrophils # (1.3-7.7) k/uL Lymphocytes # (1.0-4.8) k/uL Monocytes # (0-1.0) k/uL Eosinophils # (0-0.7) k/uL Basophils # (0-0.2) k/uL Hypochromasia Anisocytosis PT 11.5 (9.0-12.0) sec INR 1.2 H (<1.2) APTT 23.0 (22.0-30.0) sec Sodium (137-145) mmol/L Potassium (3.5-5.1) mmol/L Chloride (98-107) mmol/L Carbon Dioxide (22-30) mmol/L Anion Gap mmol/L BUN (9-20) mg/dL Creatinine (0.66-1.25) mg/dL Est GFR (CKD-EPI)AfAm (>60 ml/min/1.73 sqM) Est GFR (CKD-EPI)NonAf (>60 ml/min/1.73 sqM) Glucose (74-99) mg/dL Calcium (8.4-10.2) mg/dL Magnesium (1.6-2.3) mg/dL Total Bilirubin (0.2-1.3) mg/dL AST (17-59) U/L ALT (21-72) U/L Alkaline Phosphatase (38-126) U/L Total Creatine Kinase (55-170) U/L CK-MB (CK-2) (0.0-2.4) ng/mL CK-MB (CK-2) Rel Index Troponin I (0.000-0.034) ng/mL NT-Pro-B Natriuret Pep 39388 pg/mL Total Protein (6.3-8.2) g/dL Albumin (3.5-5.0) g/dL - Radiology Data Radiology results: image reviewed (Chest x-ray shows CHF with pleural effusions. ) Disposition Clinical Impression: Congestive heart failure Disposition: ADMITTED IP TO THIS [facility] Referrals: Ronak Chairez MD [Primary Care Provider] - 1-2 days Decision Time: 00:45
[2017-08-18 23:32] LABS: Anisocytosis Slight; Basophils % (A) 0 %; Eosinophils # (A) 0.1 k/uL (0-0.7); Eosinophils % (A) 2 %; HCT 35.9 % (39.0-53.0); HGB 10.4 gm/dL (13.0-17.5); Hypochromasia Marked; Lymphocytes # (A) 0.3 k/uL (1.0-4.8); Lymphocytes % (A) 5 %; MCHC 28.9 g/dL (31.0-37.0); MCV 96.6 fL (80.0-100.0); Mean Platelet Volume 8.8; Monocytes # (A) 0.6 k/uL (0-1.0); Monocytes % (A) 9 %; Neutrophils # (A) 4.9 k/uL (1.3-7.7); Neutrophils % (A) 81 %; Platelet Count 232 k/uL (150-450); RBC 3.71 m/uL (4.30-5.90); RDW 16.2 % (11.5-15.5); WBC 6.1 k/uL (3.8-10.6)
[2017-08-18 23:44] LABS: Albumin 3.6 g/dL (3.5-5.0); Calcium 9.4 mg/dL (8.4-10.2); INR 1.2 (<1.2); Magnesium 2.4 mg/dL (1.6-2.3); Potassium 5.2 mmol/L (3.5-5.1); Prothrombin Time 11.5 sec (9.0-12.0); Total Bilirubin 0.5 mg/dL (0.2-1.3); Total Protein 6.4 g/dL (6.3-8.2)
[2017-08-18 23:53] LABS: Creatine Kinase <20 U/L (55-170)
--- NOTE | 2017-08-18 23:57 | XR ---
EXAMINATION TYPE: XR chest 2V DATE OF EXAM: 08/18/2017 COMPARISON: 07/15/2017 HISTORY: Difficulty breathing TECHNIQUE: Frontal and lateral views of the chest are obtained. FINDINGS: There is blunting of costophrenic angles. Heart is enlarged. There is mild pulmonary conge stion. There are infiltrates at the lung bases. Thoracic aorta is atheromatous. There are sternal wir es. IMPRESSION: Congestive heart failure with pleural effusions. Lower lobe pulmonary infiltrates. Chest appears worse than last exam.
[2017-08-19 00:12] LABS: Creatine Kinase MB 2.6 ng/mL (0.0-2.4)
[2017-08-19] MEDS ORDERED: ASPIRIN 325 MG TAB PO STA (00:46)
[2017-08-19] MEDS ORDERED: IPRATROPIUM-ALBUTEROL 3 ML NEB INHALATION PRN (00:48)
[2017-08-19] MEDS: FUROSEMIDE 10 MG/ML 4 ML VIAL IV SCH ×4 (05:39→23:09)
[2017-08-19] MEDS: CARVEDILOL 3.125 MG TAB PO SCH ×2 (08:03→18:05)
[2017-08-19] MEDS: NITROGLYCERIN OINT 1 INCH/GM PACKET TOPICAL SCH ×4 (08:04→22:19)
--- NOTE | 2017-08-19 10:50 | CONS ---
CONSULTATION CHIEF COMPLAINT: Shortness of breath This is an 82-year-old gentleman with history of coronary artery disease, congestive heart failure, COPD, hypertension, who presented to hospital with progressively worsening shortness of breath for the last 2 weeks. The patient has known CAD and has had prior bypass surgery. It is unclear if he had a valve replacement are not. There is history of carotid stenosis. The patient on his initial evaluation was found to be in congestive heart failure with a BNP of 38,000. BUN is 81, creatinine is 2.2. Troponins are in the gilbert zone at 0.05 and 0.04. Patient had been treated with IV Lasix with some significant improvement in his symptoms and an echo is pending at this time. Patient during his previous evaluation in [place] was thought not to be a candidate for any further cardiac interventions. PAST MEDICAL HISTORY: Significant for congestive heart failure, coronary artery disease, status post CABG, valvular heart disease, dyslipidemia. CURRENT MEDICATIONS: Include [place], vitamin C, folic acid, Coreg 3.125 b.i.d., Bumex, Lipitor, MiraLAX. ALLERGIES: There are no known drug allergies. FAMILY HISTORY: Negative for premature coronary artery disease. SOCIAL HISTORY: Negative for current smoking, EtOH abuse, or drug abuse. REVIEW OF SYSTEMS: HEENT is unremarkable. CARDIAC: As described above. RESPIRATORY: As described above. GI: Negative. GENITOURINARY: Negative. ALLERGY/IMMUNOLOGY: Negative. MUSCULOSKELETAL: Significant for arthritis. PSYCHOSOCIAL: Negative. ENDOCRINE: Negative. DERM: negative CONSTITUTIONAL: Negative. ONCOLOGICAL: Negative. Rest of the system review is not relevant. PHYSICAL EXAM: He is comfortable at rest. Vital signs are stable. Chest exam reveals diminished air entry at the bases. Heart exam reveals first and second heart sounds, irregular rhythm and ejection systolic murmur in the aortic area. Abdomen is soft. Exam of extremities reveals bilateral 1 to 2+ pitting edema. The chest x-ray shows pulmonary congestion. LABS: Show that the hemoglobin is 10.4, platelet count is 230. BUN is 81, creatinine is 2.2. BNP is elevated. Troponin is 0.05 and 0.04. ASSESSMENT: 1. Acute exacerbation of chronic congestive heart failure, probably systolic. 2. Coronary artery disease. 3. Dyslipidemia. 4. Renal insufficiency. 5. Chronic atrial fibrillation. PLAN: I will treat the patient with IV Lasix, beta blockers. Hold the XIANG inhibitors due to renal failure and hyperkalemia. Review the echocardiogram. I will have to talk to the daughter to find out why patient was not started on anticoagulant in the past. MMJUDE / IJN: [id number] /
[2017-08-19] MEDS ORDERED: NITROGLYCERIN SL TABS 0.4 MG TAB SUBLINGUAL PRN (10:51)
[2017-08-19] MEDS: POLYETHYLENE GLYCOL 3350 17 GM POWD.PACK PO SCH (12:49)
[2017-08-19] MEDS: FOLIC ACID 1 MG TAB PO SCH (12:49)
[2017-08-19] MEDS: FERROUS SULFATE 325 MG TAB PO SCH ×2 (12:49→19:52)
[2017-08-19] MEDS: CALCIUM ACETATE 667 MG CAP PO SCH ×2 (12:49→18:05)
[2017-08-19] MEDS: ASCORBIC ACID 500 MG TAB PO SCH ×3 (12:49→19:53)
--- NOTE | 2017-08-19 17:26 | HP ---
HISTORY AND PHYSICAL DATE OF ADMISSION: 08/19/2017. PRESENTING COMPLAINT: Short of breath. HISTORY OF PRESENTING COMPLAINT: This is a very pleasant 82-year-old patient of Dr. Chairez. Chronic stable medical conditions include coronary artery disease, COPD, hypertension, hyperlipidemia, osteoarthritis, chronic kidney disease. Patient lives with his daughter. Normally uses a cane to get about. For 2 weeks the patient has been getting progressively more short of breath. Denies any cough. No fever. Edema has been increasing. The patient does sleep a bit propped up and does wake up short of breath at night. The patient was found to be in congestive heart failure. The patient's appetite is okay. He does have regular bowel movements. Feeling tired, rundown. He did receive IV Lasix for diagnosed CHF, with which he feels a bit better. REVIEW OF SYSTEMS: CONSTITUTIONAL: Weak and tired. HEENT: Decreased hearing. RESPIRATORY: As above. CARDIOVASCULAR: As above. GASTROINTESTINAL: None. GENITOURINARY: None. MUSCULOSKELETAL: Arthritic pain in different joints. DERMATOLOGICAL: None. HEMATOLOGICAL: None. LYMPHATICS: None. PSYCHIATRY: None. NEUROLOGICAL: None. PAST MEDICAL HISTORY: 1. Coronary artery disease. 2. Congestive heart failure. 3. COPD. 4. Hypertension. 5. Hyperlipidemia. 6. Osteoarthritis. 7. Chronic kidney disease. PAST SURGICAL HISTORY: 1. Cardiac valve replacement. 2. Cholecystectomy. 3. Coronary artery bypass. 4. Vasectomy. 5. Bilateral cataract surgeries. 6. Stent to the left renal artery. 7. Bilateral carotid endarterectomy. SOCIAL HISTORY: Lives with his daughter. Uses a cane. Smoked a pack a day for 15 years; stopped in 1960. Alcohol not significant. FAMILY HISTORY: Not relevant, according to the patient. HOME MEDICATIONS: 1. [place] 5 one tablet q.6 p.r.n. 2. Vitamin C 500 mg p.o. t.i.d. 3. Folic acid 1 mg p.o. daily. 4. Iron 325 p.o. b.i.d. 5. Coreg 3.125 b.i.d. 6. PhosLo 667 mg p.o. t.i.d. with meals. 7. Bumex 2 mg p.o. daily. 8. Lipitor 20 mg p.o. daily. 9. MiraLAX 17 grams p.o. daily. 10.Nitrostat 0.4 sublingually q.5 p.r.n. ALLERGIES: NONE. PHYSICAL EXAMINATION: VITAL SIGNS ON PRESENTATION: Temperature 96.9, pulse 77, respiration 17, blood pressure 150/69, pulse ox 92% on room air. GENERAL APPEARANCE: Average build. Sitting up in a chair. Tired-appearing. EYES: Pupils equal. Conjunctivae normal. HEENT: External appearance of nose and ears normal. Oral cavity normal. NECK: JVD possibly raised. Mass not palpable. RESPIRATORY: Effort increased. LUNGS: Decreased breath sounds. CARDIOVASCULAR: First and second sounds normal. Gross edema. ABDOMEN: Soft, nontender. Liver and spleen not palpable. LYMPHATIC: No lymph node palpable in neck or axillae. PSYCHIATRY: Alert and oriented x3. Mood and affect normal. NEUROLOGICAL: Pupils grossly. Cranial nerves grossly intact. Power and sensation grossly intact. Decreased sensation distally. INVESTIGATIONS: White count 6.1, hemoglobin 10.4, potassium 5.2, BUN 81, creatinine 2.20, troponin 0.05, 0.047. ProBNP 72077. EKG shows atrial fibrillation, rate controlled. Chest x-ray shows some pulmonary edema with right pleural effusion and cardiomegaly. ASSESSMENT: 1. Acute on chronic congestive heart failure exacerbation. Patient's EF currently is unknown; from underlying coronary artery disease. 2. Coronary artery disease with prior history of coronary artery bypass. 3. Chronic obstructive pulmonary disease. 4. Essential hypertension. 5. Hyperlipidemia. 6. Primary osteoarthritis in multiple joints. 7. Possibly persistent atrial fibrillation. Heart rate controlled. 8. 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 9. Troponin leak, most likely from underlying chronic kidney disease and congestive heart failure. PLAN: Patient will be given IV diuretics. Home medications are resumed. Renal function will be closely followed. Anticoagulation per Cardiology. Overall prognosis guarded, given patient's age. MMODL / IJN: [id number] /
[2017-08-19] MEDS: ATORVASTATIN 20 MG TAB PO SCH (19:52)
[2017-08-19] MEDS ORDERED: ASPIRIN 325 MG TAB PO SCH (21:00)
[2017-08-19 21:17] LABS: Glucose,Whole Blood 124 mg/dL (75-99)
[2017-08-20 06:46] LABS: Potassium 4.1 mmol/L (3.5-5.1)
[2017-08-20 06:53] LABS: Anisocytosis Slight; HCT 30.8 % (39.0-53.0); HGB 9.5 gm/dL (13.0-17.5); Hypochromasia Moderate; MCHC 30.7 g/dL (31.0-37.0); MCV 94.5 fL (80.0-100.0); Mean Platelet Volume 8.2; Platelet Count 197 k/uL (150-450); Poikilocytosis Slight; RBC 3.26 m/uL (4.30-5.90); RDW 16.4 % (11.5-15.5)
[2017-08-20] MEDS: CALCIUM ACETATE 667 MG CAP PO SCH ×3 (06:55→17:36)
[2017-08-20] MEDS: CARVEDILOL 3.125 MG TAB PO SCH ×2 (06:55→17:36)
[2017-08-20] MEDS: FUROSEMIDE 10 MG/ML 4 ML VIAL IV SCH ×2 (08:11→16:25)
[2017-08-20] MEDS: ASCORBIC ACID 500 MG TAB PO SCH ×3 (08:11→21:57)
[2017-08-20] MEDS: FERROUS SULFATE 325 MG TAB PO SCH ×2 (08:11→21:57)
[2017-08-20] MEDS: POLYETHYLENE GLYCOL 3350 17 GM POWD.PACK PO SCH (08:12)
[2017-08-20] MEDS: NITROGLYCERIN OINT 1 INCH/GM PACKET TOPICAL SCH ×4 (08:12→21:57)
[2017-08-20 08:13] LABS: Band Neutrophils % 1 %; Basophils # (M) 0.05 k/uL (0-0.2); Monocytes # (M) 0.65 k/uL (0-1.0); Neutrophils % (M) 79 %; Nucleated Red Blood Cells 0 /100 WBC (0-0); Total Cells Counted 100
[2017-08-20] MEDS: FOLIC ACID 1 MG TAB PO SCH (11:59)
--- NOTE | 2017-08-20 14:08 | P.PN ---
Subjective Progress Note Date: 08/20/17 Principal diagnosis: CHF This is an 82-year-old gentleman with history of coronary artery disease and prior bypass surgery, hyperlipidemia, renal insufficiency, chronic persistent atrial fibrillation, not on anticoagulation because of history of GI bleed Congestive heart failure, COPD, hypertension, who presented to the hospital with symptoms of progressively worsening shortness of breath. He was seen in consultation yesterday by Dr. Nunez and initiated on IV Lasix, he did diurese well through the night. Creatinine today is down to 1.9. I did have a lengthy discussion today with the daughter regarding anticoagulation. Patient had been on anticoagulation in the past and is no longer on it because of GI bleeding. We explained to the patient as risk of stroke not being on anticoagulation and we also explained that we will put the patient on a baby aspirin daily. He was sitting up in the chair today at the time of my examination, states he is feeling somewhat better but still short of breath. Continues to have mild peripheral edema. Blood pressure 124/72, heart rate in the 80s, temperature 97.2, 100% on 2 L of oxygen. White blood cell count 5.0, hemoglobin 9.5, platelet count 197. Sodium 142, potassium 4.1, BUN 76, creatinine 1.9. His BNP level on admission was 38,900. Objective - Vital Signs Vital signs: Vital Signs Temp 97.2 F L 08/20/17 11:50 Pulse 83 08/20/17 11:50 Resp 18 08/20/17 11:50 BP 124/73 08/20/17 11:50 Pulse Ox 100 08/20/17 11:50 Intake & Output 08/19/17 08/20/17 08/20/17 18:59 06:59 18:59 Intake Total 960 200 236 Output Total 400 100 100 Balance 560 100 136 Weight 77.328 kg 84.5 kg Intake: Oral 960 200 236 Output: Urine 400 100 100 Other: Voiding Method Urinal Urinal Diaper Diaper Incontinent Incontinent # Voids 2 1 - Exam PHYSICAL EXAMINATION: HEENT: Head is atraumatic, normocephalic. Pupils equal, round. Neck is supple. There is elevated jugular venous pressure. HEART EXAMINATION: Heart S1 and S2 irregularly irregular a systolic ejection murmur is heard. CHEST EXAMINATION: Lungs reveal rales bilaterally with diminished air entry to the bases. ABDOMEN: Soft, nontender. Bowel sounds are heard. No organomegaly noted. EXTREMITIES: 2+ peripheral pulses with 2+ evidence of peripheral edema . NEUROLOGIC patient is awake, alert and oriented -3. . - Labs CBC & Chem 7: 08/20/17 05:54 08/20/17 05:54 Labs: Abnormal Lab Results - Last 24 Hours (Table) 08/19/17 08/20/17 08/20/17 Range/Units 21:15 05:54 05:54 RBC 3.26 L (4.30-5.90) m/uL Hgb 9.5 L (13.0-17.5) gm/dL Hct 30.8 L (39.0-53.0) % MCHC 30.7 L (31.0-37.0) g/dL RDW 16.4 H (11.5-15.5) % Lymphocytes # (Manual) 0.10 L (1.0-4.8) k/uL Carbon Dioxide 31 H (22-30) mmol/L BUN 76 H (9-20) mg/dL Creatinine 1.90 H (0.66-1.25) mg/dL POC Glucose (mg/dL) 124 H (75-99) mg/dL Assessment and Plan Plan: Assessment and plan #1 congestive heart failure, LVEF currently unknown. #2 known history of coronary artery disease with prior bypass surgery #3 history of valve replacement #4 COPD #5 hypertension #6 hyperlipidemia #7 chronic persistent atrial fibrillation, not on anticoagulation because of history of prior GI bleed #8 chronic kidney disease #9 abnormal troponin, not consistent with acute coronary syndrome, likely secondary to abnormal renal function. Plan We will continue current dose of IV Lasix, continue to monitor intake and output along with daily weights. I did have a lengthy discussion today with the patient's daughter regarding anticoagulation, this has been discontinued in the past because of GI bleeding. We will continue to keep the patient on a baby aspirin only. Await results of echocardiogram with Doppler study. DNP note has been reviewed, I agree with a documented findings and plan of care. Patient was seen and examined.
--- NOTE | 2017-08-20 21:21 | PN ---
PROGRESS NOTE DATE OF SERVICE: 08/20/2017. PRESENTING COMPLAINT: Short of breath. INTERVAL HISTORY: This patient presents with CHF exacerbation. Sitting up in a chair, still short of breath. He did get . A lot of edema still present. Did tolerate some diet. Feeling weak, tired, run down. REVIEW OF SYSTEMS: Done for constitutional, cardiovascular, GI, pulmonary; relevant findings as above. CURRENT MEDICATIONS: Include: 1. IV Lasix 40 mg q.8 and. 2. Bumex. EXAMINATION: Temperature 97.2, pulse 83, respiratory 18, blood pressure 124/73, pulse ox 100% on 2L. GENERAL APPEARANCE: Sitting up in a chair, tired-appearing. EYES: Pupils equal. Conjunctivae normal. HEENT: External nose and ears normal. Oral cavity normal. NECK: JVD partially raised. Mass not palpable. RESPIRATORY: Effort increased. LUNGS: Decreased breath sounds at the bases. CARDIOVASCULAR: First and second sounds normal. Gross edema. ABDOMEN: Soft, nontender. Liver and spleen not palpable. PSYCHIATRY: Alert and oriented x3. Mood and affect normal. INVESTIGATIONS: White count 5, hemoglobin 9.5. Potassium 4.1, BUN 36, creatinine 1.90. ASSESSMENT: 1. Acute on chronic congestive heart failure, pending echocardiogram from underlying coronary artery disease, slow to respond. 2. Coronary artery disease, prior history of coronary bypass. 3. Chronic obstructive pulmonary disease. 4. Essential hypertension. 5. Hyperlipidemia. 6. Primary osteoarthritis, multiple joints. 7. Persistent atrial fibrillation. 8. Chronic kidney disease stage 3B, from hypertensive nephrosclerosis. 9. Troponin leak, likely from congestive heart failure in the setting of chronic kidney disease, not acute coronary syndrome. PLAN: The patient is diuresing slowly with the current dose. Will try the patient on a Bumex drip 0.5 mg/hour and keep a close eye on I's and O's and see how patient does. Overall prognosis guarded. MMODL / IJN: [id number] /
--- NOTE | 2017-08-20 21:38 | ECHOF ---
Referral Reason:chf MEASUREMENTS -------- HEIGHT: 167.6 cm WEIGHT: 84.4 kg BP: 124/73 RVIDd: 3.7 cm (< 3.3) IVSd: 1.5 cm (0.6 - 1.1) LVIDd: 3.9 cm (3.9 - 5.3) LVPWd: 1.5 cm (0.6 - 1.1) IVSs: 1.7 cm LVIDs: 2.7 cm LVPWs: 2.0 cm LA Diam: 4.2 cm (2.7 - 3.8) LAESV Index (A-L): 35.47 ml/m Ao Diam: 3.2 cm (2.0 - 3.7) AV Cusp: 1.8 cm (1.5 - 2.6) LA Diam: 5.3 cm (2.7 - 3.8) MV E Dez: 1.38 m/s MV DecT: 206 ms MV A Dez: 0.47 m/s MV E/A Ratio: 2.92 RAP: 15.00 mmHg RVSP: 88.40 mmHg FINDINGS -------- Sinus rhythm. This was a technically adequate study. The left ventricular size is normal. There is moderate concentric left ventricular hypertrophy. O verall left ventricular systolic function is moderately impaired with, an EF between 35 - 40 %. Ant erior tobar are hypokinetic. Septal tobar are hypokinetic. The right ventricle is severely enlarged. The right ventricular septal wall is flattened in diastol e and systole which is consistent with right ventricular volume and pressure overload. LA is moderately dilated 34-39 ml/m2 The right atrium is markedly enlarged. There is mild aortic valve sclerosis. Trace amount of aortic regurgitation. There is no evidence of aortic stenosis. The mitral valve leaflets are mild to moderately thickened. Mild mitral annular calcification pres ent. [id number] mitral regurgitation is present. Severe tricuspid regurgitation present. There is severe pulmonary hypertension. The right ventric ular systolic pressure, as measured by Doppler, is 88.40mmHg. Trace/mild (physiologic) pulmonic regurgitation. The aortic root size is normal. The inferior vena cava is dilated with no significant inspiratory collapse which is consistent estima cali right atrial pressure of >20 mmHg. There is a trivial pericardial effusion present. CONCLUSIONS -------- 1. Sinus rhythm. 2. This was a technically adequate study. 3. The left ventricular size is normal. 4. There is moderate concentric left ventricular hypertrophy. 5. Overall left ventricular systolic function is moderately impaired with, an EF between 35 - 40 %. 6. Anterior tobar are hypokinetic. 7. Septal tobar are hypokinetic. 8. The right ventricle is severely enlarged. 9. The right ventricular septal wall is flattened in diastole and systole which is consistent with r ight ventricular volume and pressure overload. 10. LA is moderately dilated 34-39 ml/m2 11. The right atrium is markedly enlarged. 12. There is mild aortic valve sclerosis. 13. Trace amount of aortic regurgitation. 14. The mitral valve leaflets are mild to moderately thickened. 15. Mild mitral annular calcification present. 16. [id number] mitral regurgitation is present. 17. Severe tricuspid regurgitation present. 18. There is severe pulmonary hypertension. 19. The right ventricular systolic pressure, as measured by Doppler, is 88.40mmHg. 20. Trace/mild (physiologic) pulmonic regurgitation. 21. The aortic root size is normal. 22. The inferior vena cava is dilated with no significant inspiratory collapse which is consistent es timated right atrial pressure of >20 mmHg. 23. There is a trivial pericardial effusion present. [employer] OPERATOR: Davin Leiva RDCS
[2017-08-20] MEDS: ATORVASTATIN 20 MG TAB PO SCH (21:57)
[2017-08-20] MEDS: BUMETANIDE 12 MG in DEXTROSE 5% IN WATER 192 ML IV SCH ×2 (22:08)
[2017-08-21 06:54] LABS: Calcium 9.1 mg/dL (8.4-10.2); Potassium 3.9 mmol/L (3.5-5.1)
[2017-08-21] MEDS: CARVEDILOL 3.125 MG TAB PO SCH ×2 (07:05→16:40)
[2017-08-21] MEDS: CALCIUM ACETATE 667 MG CAP PO SCH ×3 (07:05→16:40)
--- NOTE | 2017-08-21 07:24 | XR ---
EXAMINATION TYPE: XR chest 2V DATE OF EXAM: 08/21/2017 COMPARISON: 08/18/2017 HISTORY: Shortness of breath TECHNIQUE: Frontal and lateral views of the chest are obtained. FINDINGS: Scattered senescent parenchymal changes noted. Hyperinflation compatible with COPD. No change in basilar pleural effusions as well as atelectasis and/or infiltrates. Heart size is stable. Mediastinal structures are stable and grossly unremarkable. No evidence for hilar prominence. Degenerative changes dorsal spine. IMPRESSION: 1. No change in basilar pleural effusions as well as atelectasis and/or infiltrates.
[2017-08-21] MEDS: NITROGLYCERIN OINT 1 INCH/GM PACKET TOPICAL SCH ×4 (08:08→21:03)
[2017-08-21] MEDS: FERROUS SULFATE 325 MG TAB PO SCH ×2 (08:08→21:03)
[2017-08-21] MEDS: POLYETHYLENE GLYCOL 3350 17 GM POWD.PACK PO SCH (08:08)
[2017-08-21] MEDS: ASPIRIN 81 MG PO SCH (08:08)
[2017-08-21] MEDS: ASCORBIC ACID 500 MG TAB PO SCH ×3 (08:08→21:03)
[2017-08-21] MEDS: FOLIC ACID 1 MG TAB PO SCH (12:02)
--- NOTE | 2017-08-21 12:39 | P.PN ---
Subjective Progress Note Date: 08/21/17 Principal diagnosis: CHF This is an 82-year-old gentleman with history of coronary artery disease and prior bypass surgery, hyperlipidemia, renal insufficiency, chronic persistent atrial fibrillation, not on anticoagulation because of history of GI bleed Congestive heart failure, COPD, hypertension, who presented to the hospital with symptoms of progressively worsening shortness of breath. He was seen in consultation yesterday by Dr. Nunez and initiated on IV Lasix, he did diurese well through the night. Creatinine today is down to 1.9. I did have a lengthy discussion today with the daughter regarding anticoagulation. Patient had been on anticoagulation in the past and is no longer on it because of GI bleeding. We explained to the patient as risk of stroke not being on anticoagulation and we also explained that we will put the patient on a baby aspirin daily. He was sitting up in the chair today at the time of my examination, states he is feeling somewhat better but still short of breath. Continues to have mild peripheral edema. Blood pressure 124/72, heart rate in the 80s, temperature 97.2, 100% on 2 L of oxygen. White blood cell count 5.0, hemoglobin 9.5, platelet count 197. Sodium 142, potassium 4.1, BUN 76, creatinine 1.9. His BNP level on admission was 38,900. 08/21/2017 Patient was seen and examined this morning, diuresing on IV Lasix. His weight is down 1 kg today. Chest x-ray was repeated today which revealed no change in pleural effusions. Ejection fraction by echocardiogram showed an EF of 35-40%. Moderate to severe MR, severe TR, severe pulmonary hypertension. Blood pressure 138/60 with a heart rate in the 70s to 80s. 99% on 2 L of oxygen. Sodium 142, potassium 3.9, BUN 74, creatinine 1.8. Objective - Vital Signs Vital signs: Vital Signs Temp 97.1 F L 08/21/17 08:00 Pulse 79 08/21/17 08:00 Resp 18 08/21/17 08:00 BP 139/64 08/21/17 08:00 Pulse Ox 99 08/21/17 08:03 Intake & Output 08/20/17 08/21/17 08/21/17 18:59 06:59 18:59 Intake Total 236 360 Output Total 900 Balance -664 360 Weight 83.5 kg Intake: Oral 236 360 Output: Urine 900 Other: Voiding Method Urinal Urinal Diaper Diaper Incontinent Incontinent # Voids 1 1 2 - Exam PHYSICAL EXAMINATION: HEENT: Head is atraumatic, normocephalic. Pupils equal, round. Neck is supple. There is elevated jugular venous pressure. HEART EXAMINATION: Heart S1 and S2 irregularly irregular a systolic ejection murmur is heard. CHEST EXAMINATION: Lungs reveal rales bilaterally with diminished air entry to the bases. ABDOMEN: Soft, nontender. Bowel sounds are heard. No organomegaly noted. EXTREMITIES: 2+ peripheral pulses with 1-2+ evidence of peripheral edema . NEUROLOGIC patient is awake, alert and oriented -3. . - Labs CBC & Chem 7: 08/20/17 05:54 08/21/17 06:22 Labs: Abnormal Lab Results - Last 24 Hours (Table) 08/21/17 Range/Units 06:22 Chloride 95 L (98-107) mmol/L Carbon Dioxide 34 H (22-30) mmol/L BUN 74 H (9-20) mg/dL Creatinine 1.80 H (0.66-1.25) mg/dL Glucose 120 H (74-99) mg/dL Assessment and Plan Plan: Assessment and plan #1 congestive heart failure, LVEF currently unknown. #2 known history of coronary artery disease with prior bypass surgery #3 history of valve replacement #4 COPD #5 hypertension #6 hyperlipidemia #7 chronic persistent atrial fibrillation, not on anticoagulation because of history of prior GI bleed #8 chronic kidney disease #9 abnormal troponin, not consistent with acute coronary syndrome, likely secondary to abnormal renal function. Plan Patient's IV Lasix was discontinued by primary and he was initiated on a Bumex drip which we will continue for another 24 hours. Check lytes BUN and creatinine in the morning. DNP note has been reviewed, I agree with a documented findings and plan of care. Patient was seen and examined.
--- NOTE | 2017-08-21 16:29 | CDI ---
Last Revision, April 2017 Documentation Clarification Form Date: 08/21/17 From: Kim Mcconnell RN,CCDS Admit Date: 08/19/2017 12:46:00 AM Patient Name: Donald Schaffer Visit Number: [id number] Discharge Date: ATTENTION: The Clinical Documentation Specialists (CDI) and [facility] Coding Staff appreciate your assistance in clarifying documentation. Please respond to the clarification below the line at the bottom and electronically sign. The CDI & [facility] Coding staff will review the response and follow-up if needed. Please note: Queries are made part of the Legal Health Record. If you have any questions, please contact the author of this message via ITS. Dr. Mark Pitt History/Risk Factors: .CAD, Congestive heart failure, COPD, Hypertension Clinical Indicators: Present to hospital with symptoms of progressively worsening shortness of breath. VS/Pulse OX: 124/72 80 18 97.2, 100% 2/L NC. BNP: 38,900 Echocardiogram Results: EF of 35-40 % Moderate to severe MR, severe TR, severe pulmonary hypertension Chest X Ray Admission: Congestive heart failure with pleural effusion. Lower lobe pulmonary infiltrate. Treatment: IV Lasix ASA Monitor I/O, daily weights. In your professional opinion, can you please clarify the acuity and type of CHF if known? Systolic Heart Failure: Acute Chronic Acute on Chronic Diastolic Heart Failure: Acute Chronic Acute on Chronic Systolic & Diastolic Heart Failure: Acute Chronic Acute on Chronic Heart Failure Unable to Determine Other, please specify__ Please continue to document in your progress notes and discharge summary in order to capture severity of illness and risk of mortality. Include clinical findings that support your diagnosis. MTDD
--- NOTE | 2017-08-21 18:49 | PN ---
PROGRESS NOTE DATE OF SERVICE: August 21, 2017. PRESENTING COMPLAINT: Shortness of breath. INTERVAL HISTORY: Patient admitted with CHF exacerbation. I started the patient on Bumex drip last night. The patient has diuresed quite a bit. He said his breathing is significantly improved. Also has got Cordell wraps. REVIEW OF SYSTEMS: Done for constitutional, cardiovascular, GI, pulmonary; relevant findings as above. CURRENT MEDICATIONS: Include Bumex drip. PHYSICAL EXAMINATION: Temperature 97.1, pulse 79, respiratory 18, blood pressure 139/74, pulse ox 95% on 2 L. GENERAL APPEARANCE: Sitting up in a chair, more perky. Eyes: Pupils are equal. Conjunctivae normal. HEENT: External appearance of nose and ears normal. Oral cavity normal. Neck: JVD possibly raised. Mass not palpable. Respiratory effort increased. Lungs decreased breath sounds in the bases. Cardiovascular first and second sounds normal. Edema present. ABDOMEN: Soft, nontender. Liver and spleen not palpable. Psychiatry: Alert and oriented x3. Mood and affect normal. INVESTIGATIONS: Bicarb 34, BUN 74, creatinine 1.80. 2D echo shows EF of 35-40%. ASSESSMENT: 1. Acute on chronic congestive heart failure exacerbation from systolic dysfunction, EF 35-40%. Also, combination of diastolic dysfunction. 2. Hypertensive heart disease. 3. Moderate to severe mitral regurgitation, severe tricuspid regurgitation, nonrheumatic. 4. 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 5. Coronary artery disease, prior history of coronary artery bypass. 6. Chronic obstructive pulmonary disease. 7. Essential hypertension. 8. Hyperlipidemia. 9. Primary osteoarthritis multiple joints. 10.Persistent atrial fibrillation. 11.Chronic kidney disease, stage IIIB, from hypertensive nephrosclerosis. 12.Troponin leak from congestive heart failure, not acute coronary syndrome. PLAN: Keep the patient on a Bumex drip today as patient is significantly improved. Hopefully can be switched over to IV Bumex or p.o. Bumex tomorrow morning depending on how he is doing. MMODL / IJN: [id number] /
[2017-08-21] MEDS: BUMETANIDE 12 MG in DEXTROSE 5% IN WATER 192 ML IV SCH ×2 (20:46)
[2017-08-21] MEDS: ATORVASTATIN 20 MG TAB PO SCH (21:03)
[2017-08-22 06:00] LABS: Calcium 8.7 mg/dL (8.4-10.2)
[2017-08-22] MEDS: CARVEDILOL 3.125 MG TAB PO SCH ×2 (06:39→17:07)
[2017-08-22] MEDS: CALCIUM ACETATE 667 MG CAP PO SCH ×3 (06:39→17:07)
[2017-08-22] MEDS: ASPIRIN 81 MG PO SCH (07:49)
[2017-08-22] MEDS: ASCORBIC ACID 500 MG TAB PO SCH ×3 (07:49→20:48)
[2017-08-22] MEDS: NITROGLYCERIN OINT 1 INCH/GM PACKET TOPICAL SCH ×2 (07:49→11:36)
[2017-08-22] MEDS: FERROUS SULFATE 325 MG TAB PO SCH ×2 (07:49→20:48)
[2017-08-22] MEDS: POLYETHYLENE GLYCOL 3350 17 GM POWD.PACK PO SCH (07:50)
--- NOTE | 2017-08-22 10:44 | P.PN ---
Subjective Progress Note Date: 08/22/17 Principal diagnosis: CHF This is an 82-year-old gentleman with history of coronary artery disease and prior bypass surgery, hyperlipidemia, renal insufficiency, chronic persistent atrial fibrillation, not on anticoagulation because of history of GI bleed Congestive heart failure, COPD, hypertension, who presented to the hospital with symptoms of progressively worsening shortness of breath. He was seen in consultation yesterday by Dr. Nunez and initiated on IV Lasix, he did diurese well through the night. Creatinine today is down to 1.9. I did have a lengthy discussion today with the daughter regarding anticoagulation. Patient had been on anticoagulation in the past and is no longer on it because of GI bleeding. We explained to the patient as risk of stroke not being on anticoagulation and we also explained that we will put the patient on a baby aspirin daily. He was sitting up in the chair today at the time of my examination, states he is feeling somewhat better but still short of breath. Continues to have mild peripheral edema. Blood pressure 124/72, heart rate in the 80s, temperature 97.2, 100% on 2 L of oxygen. White blood cell count 5.0, hemoglobin 9.5, platelet count 197. Sodium 142, potassium 4.1, BUN 76, creatinine 1.9. His BNP level on admission was 38,900. 08/21/2017 Patient was seen and examined this morning, diuresing on IV Lasix. His weight is down 1 kg today. Chest x-ray was repeated today which revealed no change in pleural effusions. Ejection fraction by echocardiogram showed an EF of 35-40%. Moderate to severe MR, severe TR, severe pulmonary hypertension. Blood pressure 138/60 with a heart rate in the 70s to 80s. 99% on 2 L of oxygen. Sodium 142, potassium 3.9, BUN 74, creatinine 1.8. 08/22/2017 Seen and examined this morning, sitting up in the chair at bedside, edema improving significantly. Breathing also improving. Good urine output, weight is down today, creatinine 1.6. We will continue with the IV Bumex, repeat chest x-ray tomorrow morning. Objective - Vital Signs Vital signs: Vital Signs Temp 97.3 F L 08/22/17 08:00 Pulse 81 08/22/17 08:00 Resp 18 08/22/17 08:00 BP 113/51 08/22/17 08:00 Pulse Ox 97 08/22/17 08:00 Intake & Output 08/21/17 08/22/17 08/22/17 18:59 06:59 18:59 Intake Total 1080 721.333 Output Total 550 Balance 1080 171.333 Weight 82.1 kg Intake: IV 135 Bumetanide 12 mg In 135 Dextrose 5% in Water 192 ml @ 0.5 MG/HR 10 mls/hr IV .Q24H SHEILA Rx#: [id number] Intake, IV Titration 226.333 Amount Bumetanide 12 mg In 226.333 Dextrose 5% in Water 192 ml @ 0.5 MG/HR 10 mls/hr IV .Q24H SHEILA Rx#: [id number] Oral 1080 360 Output: Urine 550 Other: Voiding Method Urinal Urinal Urinal Diaper Diaper Diaper Incontinent Incontinent # Voids 2 1 - Exam PHYSICAL EXAMINATION: HEENT: Head is atraumatic, normocephalic. Pupils equal, round. Neck is supple. There is elevated jugular venous pressure. HEART EXAMINATION: Heart S1 and S2 irregularly irregular a systolic ejection murmur is heard. CHEST EXAMINATION: Lungs reveal rales bilaterally with improvement in air entry to the bases. ABDOMEN: Soft, nontender. Bowel sounds are heard. No organomegaly noted. EXTREMITIES: 2+ peripheral pulses with 1+ evidence of peripheral edema, bilateral Cordell wraps in place . NEUROLOGIC patient is awake, alert and oriented -3. . - Labs CBC & Chem 7: 08/20/17 05:54 08/22/17 05:27 Labs: Abnormal Lab Results - Last 24 Hours (Table) 08/22/17 Range/Units 05:27 Chloride 95 L (98-107) mmol/L Carbon Dioxide 36 H (22-30) mmol/L BUN 77 H (9-20) mg/dL Creatinine 1.66 H (0.66-1.25) mg/dL Glucose 112 H (74-99) mg/dL Assessment and Plan Plan: Assessment and plan #1 congestive heart failure, systolic acute on chronic #2 known history of coronary artery disease with prior bypass surgery #3 history of valve replacement #4 COPD #5 hypertension #6 hyperlipidemia #7 chronic persistent atrial fibrillation, not on anticoagulation because of history of prior GI bleed #8 chronic kidney disease #9 abnormal troponin, not consistent with acute coronary syndrome, likely secondary to abnormal renal function. Plan We will continue with the Bumex drip for 24 hours, repeat a chest x-ray tomorrow. Check lytes BUN and creatinine in the morning. DNP note has been reviewed, I agree with a documented findings and plan of care. Patient was seen and examined.
[2017-08-22] MEDS: guaiFENesin-DM 600/30MG 1 EACH TAB.ER.12H PO SCH ×2 (11:35→20:48)
[2017-08-22] MEDS: FOLIC ACID 1 MG TAB PO SCH (11:36)
[2017-08-22] MEDS: HYDROcodone/APAP 5-325MG 1 EACH TAB PO PRN (13:20)
--- NOTE | 2017-08-22 14:23 | P.CNPUL ---
History of Present Illness Consult date: 08/22/17 Reason for consult: dyspnea History of present illness: This is an 82-year-old male patient was hospitalized because of worsening shortness of breath. The patient is currently being treated for an acute decompensation of congestion heart failure. The patient was initially placed on IV Lasix and based on some suboptimal response the patient was placed on a Bumex drip. He is producing adequate amount of urine output. His lower extremities edema is improving. His chest x-ray shows organomegaly and small bilateral pleural effusions. The patient has multiple medical problems and comorbidities. He is currently free of any angina. His undergone previous bypass surgery for coronary artery disease. He has chronic renal failure. He also has chronic atrial fibrillation and he has been on no antiplatelet coagulation based on previous history of GI bleed. He is known to have also COPD and hypertension and chronic dyspnea. Note that on admission, his proBNP level was 38,000. His creatinine was at 1.9. He is afebrile. He is pulse oxing on the Naprosyn 2 L of oxygen by nasal cannula. HEENT denies having any specific complaints on today's evaluation. He is responding nicely to diuretics and the patient's creatinine is down to 1.6. His echocardiogram from this current admission shows an ejection fraction of 35-40% along with segmental wall motion abnormalities as the anterior wall is hypokinetic and there is also to hypokinesia. There is no evidence also right-sided failure knowing that the patient's right ventricular size and structures enlarged and dilated so is the right atrium. So in the left atrium and there is moderate to severe degree of mitral regurgitation and severe tricuspid regurgitation along with a pulmonary artery pressure of 88 mmHg. As such this patient has biventricular failure in addition to underlying coronary artery disease and valvular heart disease with moderate severe mitral regurgitation. Review of Systems Constitutional: Reports fatigue, Reports weakness, Reports weight gain Eyes: denies blurred vision, denies bulging eye, denies decreased vision Ears: deny: decreased hearing, ear discharge, earache Ears, nose, mouth and throat: Denies headache, Denies sore throat Cardiovascular: Reports decreased exercise tolerance, Reports dyspnea on exertion, Reports edema, Reports irregular heart beat, Reports leg edema, Reports paroxysmal nocturnal dyspnea, Reports shortness of breath Respiratory: Reports dyspnea Gastrointestinal: Reports BRBPR ( previous history of GI bleed, not on any anticoagulation), Denies abdominal pain, Denies diarrhea, Denies nausea, Denies vomiting Genitourinary: Reports as per HPI Musculoskeletal: Reports limitation of motion, Reports low back pain Musculoskeletal: bilateral: ankle swelling, absent: ankle pain, ankle stiffness Integumentary: Denies pruritus, Denies rash Neurological: Reports weakness, Denies numbness Psychiatric: Denies anxiety, Denies depression Endocrine: Reports fatigue Hematologic/Lymphatic: Reports as per HPI Allergic/Immunologic: Reports as per HPI Past Medical History Past Medical History: Coronary Artery Disease (CAD), Heart Failure, COPD, Hyperlipidemia, Hypertension, Myocardial Infarction (NH), Osteoarthritis (OA), Renal Disease Additional Past Medical History / Comment(s): Coronary artery disease, coronary artery bypass surgery, chronic atrial fibrillation, congestion heart failure with an ejection fraction of 30-35%, valvular heart disease with moderate to severe mitral regurgitation and severe tricuspid regurgitation and severe pulmonary hypertension, chronic lower oximetry edema, chronic pleural effusions , hypertension, hyperlipidemia, chronic renal failure, degenerative arthritis, gout, chronic back pain, chronic anemia, history of fall and closed head injury today that, COPD Last Myocardial Infarction Date:: unk History of Any Multi-Drug Resistant Organisms: None Reported Past Surgical History: Cholecystectomy, Coronary Bypass/CABG, Heart Catheterization Additional Past Surgical History / Comment(s): coronary artery bypass surgery performed in [place] back in the 1980s, cataract surgery, cardiac catheterization, stenting of the renal arteries, bilateral carotid endarterectomies, cholecystectomy, questionable history of valve replacement although this is not clear Past Anesthesia/Blood Transfusion Reactions: No Reported Reaction Additional Past Anesthesia/Blood Transfusion Reaction / Comment(s): blood transfusions-no reaction Past Psychological History: No Psychological Hx Reported Additional Psychological History / Comment(s): pt lives with his josé miguel(and son in law) single level home 2 porch steps or ramp. uses cane when up. has home care but not srue of the name. has bsc, walker, cane, rails in [place]. Smoking Status: Former smoker Past Alcohol Use History: None Reported Additional Past Alcohol Use History / Comment(s): started smoking at age 10(1946 ), quit 1960 smoked 1 ppd Past Drug Use History: None Reported - Past Family History Mother Family Medical History: No Reported History Additional Family Medical History / Comment(s): " from natural causes" Father Family Medical History: Cancer Additional Family Medical History / Comment(s): rectal cancer Medications and Allergies Home Medications Medication Instructions Recorded Confirmed Type Atorvastatin [Lipitor] 20 mg PO DAILY@2100 05/10/17 08/19/17 History Calcium Acetate [PhosLo] 667 mg PO TID-W/MEALS 05/10/17 08/19/17 History Carvedilol [Coreg] 3.125 mg PO BID 05/10/17 08/19/17 History Ferrous Sulfate [Iron (65 MG 325 mg PO BID 05/10/17 08/19/17 History Elemental)] Folic Acid 1 mg PO DAILY 05/10/17 08/19/17 History HYDROcodone/APAP 5-325MG [[place] 1 tab PO Q6H PRN 05/10/17 08/19/17 History 5-325] Nitroglycerin Sl Tabs [Nitrostat] 0.4 mg SUBLINGUAL Q5M PRN 05/10/17 08/19/17 History Polyethylene Glycol 3350 [Miralax] 17 gm PO DAILY 05/10/17 08/19/17 History Bumetanide 2 mg PO DAILY #0 07/16/17 08/19/17 Rx Ascorbic Acid [Vitamin C] 500 mg PO TID 08/19/17 08/19/17 History Allergies Allergy/AdvReac Type Severity Reaction Status Date / Time No Known Allergies Allergy Verified 08/19/17 07:51 Physical Exam Vitals: Vital Signs Temp Pulse Resp BP Pulse Ox 08/22/17 11:59 97.0 F L 77 18 107/49 97 08/22/17 08:00 97.3 F L 81 18 113/51 97 08/22/17 04:00 74 16 111/60 96 08/21/17 23:41 97.6 F 87 16 121/58 100 08/21/17 20:00 97.4 F L 79 16 117/63 100 08/21/17 17:15 14 08/21/17 16:00 97.3 F L 72 16 139/58 99 Intake and Output 08/21/17 08/22/17 08/22/17 22:59 06:59 14:59 Intake Total 586.333 495 Output Total 550 Balance 586.333 -55 Intake: IV 135 Bumetanide 12 mg In 135 Dextrose 5% in Water 192 ml @ 0.5 MG/HR 10 mls/hr IV .Q24H [facility] Rx#: [id number] Intake, IV Titration 226.333 Amount Bumetanide 12 mg In 226.333 Dextrose 5% in Water 192 ml @ 0.5 MG/HR 10 mls/hr IV .Q24H [facility] Rx#: [id number] Oral 360 360 Output: Urine 550 Other: Voiding Method Urinal Urinal Urinal Diaper Diaper Diaper Incontinent Incontinent # Voids 1 Weight 82.1 kg Gen. appearance the patient is calm comfortable no acute distress. He is awake and alert and sitting up on a chair.Head exam was generally normal. There was no scleral icterus or corneal arcus. Mucous membranes were moist.Neck was supple and without jugular venous distension, thyromegaly, or carotid bruits. Carotids were easily palpable bilaterally. There was no adenopathy. The patient has bilateral jugular venous distention and scars of previous endarterectomy in the neck. Lungs are diminished in lung bases bilaterally some and there is also dullness to percussion related to underlying pleural effusion. No labored breathing. No use of accessory muscles of breathing.Abdominal exam revealed normal bowel sounds. The abdomen was soft, non -tender, and without masses, organomegaly, or appreciable enlargement of the abdominal aorta. Extremities reveal +1-2 pitting edema bilaterally reaching the knees. No cyanosis or clubbing.Examination of the skin revealed no evidence of significant rashes, suspicious appearing nevi or other concerning lesions. Neurologically the patient awake and alert and there is no focal neurological deficit. Psychiatric to the patient has normal mood and affect. Results - Laboratory Findings CBC and BMP: 08/20/17 05:54 08/22/17 05:27 PT/INR, D-dimer PT 11.5 sec (9.0-12.0) 08/18/17 23:16 INR 1.2 (<1.2) H 08/18/17 23:16 Abnormal lab findings: Abnormal Labs 08/18/17 08/18/17 08/18/17 23:16 23:16 23:16 RBC 3.71 L Hgb 10.4 L Hct 35.9 L MCHC 28.9 L RDW 16.2 H Lymphocytes # 0.3 L Lymphocytes # (Manual) INR Potassium 5.2 H Chloride Carbon Dioxide BUN 81 H* Creatinine 2.20 H Glucose 109 H POC Glucose (mg/dL) Magnesium 2.4 H Total Creatine Kinase <20 L CK-MB (CK-2) 2.6 H* Troponin I 0.050 H* 08/18/17 08/19/17 08/19/17 23:16 06:34 11:23 RBC Hgb Hct MCHC RDW Lymphocytes # Lymphocytes # (Manual) INR 1.2 H Potassium Chloride Carbon Dioxide BUN Creatinine Glucose POC Glucose (mg/dL) Magnesium Total Creatine Kinase CK-MB (CK-2) Troponin I 0.047 H* 0.048 H* 08/19/17 08/20/17 08/20/17 21:15 05:54 05:54 RBC 3.26 L Hgb 9.5 L Hct 30.8 L MCHC 30.7 L RDW 16.4 H Lymphocytes # Lymphocytes # (Manual) 0.10 L INR Potassium Chloride Carbon Dioxide 31 H BUN 76 H Creatinine 1.90 H Glucose POC Glucose (mg/dL) 124 H Magnesium Total Creatine Kinase CK-MB (CK-2) Troponin I 08/21/17 08/22/17 06:22 05:27 RBC Hgb Hct MCHC RDW Lymphocytes # Lymphocytes # (Manual) INR Potassium Chloride 95 L 95 L Carbon Dioxide 34 H 36 H BUN 74 H 77 H Creatinine 1.80 H 1.66 H Glucose 120 H 112 H POC Glucose (mg/dL) Magnesium Total Creatine Kinase CK-MB (CK-2) Troponin I - Diagnostic Findings Chest x-ray: image reviewed Assessment and Plan Plan: Assessment 1 acute decompensated biventricular heart failure, systolic in nature with obvious signs of fluid overload 2 bilateral pleural effusion secondary to above 3 bilateral lower extremity edema secondary to above 4 coronary artery disease with decreased bypass surgery 5 CHF systolic failure, chronic with an ejection fraction of 30-35%. 6 valvular heart disease with moderate to severe mitral regurgitation and severe tricuspid regurgitation with severe pulmonary hypertension 7 right-sided heart failure secondary to above, PA pressures in the severe range , 88 mmHg 8 chronic renal failure with stage III kidney disease 9 chronic atrial fibrillation rate controlled on no anticoagulants for now 10 COPD 11 hypertension 12 hyperlipidemia 13 degenerative arthritis 14 carotid artery disease with bilateral endarterectomy 15 endovascular stent involving the lower arteries for renal artery stenosis 16 chronic anemia, multifactorial 17 positive troponin leak secondary to above, nonspecific, not related to an acute cardiac event or coronary event. Plan Very complicated debilitated male patient with multiple medical pounds and comorbidities specifically the active issue for now as the decompensated biventricular heart failure. The patient is conditions being optimized with Lasix initially and subsequently was switched to Bumex drip. He is producing adequate amount of urine output is improving clinically. Renal function stable and in fact creatinine is up to 1-1.6. The pleural effusion will be monitored and will consider draining the pleural fluid if there is any symptoms of worsening shortness of breath related to CHF and fluid overload. For now the patient is responding and we will proceed with diuretics solely. Optimalization of CHF per cardiology.
[2017-08-22] MEDS: acetaZOLAMIDE 250 MG TAB PO SCH ×2 (17:06→20:44)
--- NOTE | 2017-08-22 18:35 | PN ---
PROGRESS NOTE DATE OF SERVICE: 08/22/2017 PRESENT COMPLAINT: Short of breath. INTERVAL HISTORY: Patient admitted with CHF exacerbation. The patient on a Bumex drip. Edema is slowly coming down. Short of breath slowly getting better, has a headache that appears from nitro paste. Did tolerate some diet, feels tired. REVIEW OF SYSTEMS: Done for constitutional, cardiovascular, GI, pulmonary; relevant findings as above. CURRENT MEDICATIONS: Include a Bumex drip at 0.5 mg an hour. EXAMINATION: Temperature 96, pulse 72, respirations 18, blood pressure 97/47, pulse ox 92% on room air. GENERAL APPEARANCE: Sitting up on a chair, awake. EYES: Pupils equal. Conjunctivae normal. HEENT: External nose, ears normal. Oral cavity normal. NECK: JVD unable to raise. Mass not palpable. RESPIRATORY: Effort increased. LUNGS: Decreased breath sounds at the bases. CARDIOVASCULAR: First and second sounds normal. Edema present. ABDOMEN: Soft, nontender. Liver and spleen not palpable. PSYCHIATRY: Alert and oriented x3. Mood and affect normal. INVESTIGATIONS: Potassium 4, bicarb 36, BUN 77, creatinine 1.6. ASSESSMENT: 1. Acute on chronic congestive heart failure exacerbation from systolic dysfunction, ejection fraction 35%-40% along with a diastolic dysfunction, slow to respond. 2. Bilateral pleural effusion, more so on the right from congestive heart failure. 3. Hypertensive heart disease. 4. Moderate to severe mitral regurgitation, severe tricuspid regurgitation, nonrheumatic. 5. 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 6. Coronary artery disease, prior history of coronary bypass. 7. Chronic obstructive pulmonary disease. 8. Essential hypertension. 9. Hyperlipidemia. 10.Primary osteoarthritis, multiple joints. 11.Persistent atrial fibrillation. 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 13.Troponin leak from congestive heart failure, not acute coronary syndrome. PLAN: Continue the patient on a Bumex drip. The patient is slowly responding. Creatinine is actually coming down. Creatinine is coming down as renal perfusion is improving. Care was discussed with the patient. Will discontinue the nitro paste, as it is giving the patient a headache. MMODL / IJN: [id number] /
[2017-08-22] MEDS: BUMETANIDE 12 MG in DEXTROSE 5% IN WATER 192 ML IV SCH ×2 (20:44)
[2017-08-22] MEDS: ATORVASTATIN 20 MG TAB PO SCH (20:48)
[2017-08-23 06:53] LABS: Calcium 8.7 mg/dL (8.4-10.2); Potassium 4.2 mmol/L (3.5-5.1)
[2017-08-23] MEDS: CALCIUM ACETATE 667 MG CAP PO SCH ×3 (06:54→17:03)
[2017-08-23] MEDS: CARVEDILOL 3.125 MG TAB PO SCH ×2 (06:54→17:03)
--- NOTE | 2017-08-23 06:54 | XR ---
EXAMINATION TYPE: XR chest 2V DATE OF EXAM: 08/23/2017 HISTORY: follow up CHf. REFERENCE: Previous study dated 08/21/2017. FINDINGS: There has been a midline sternotomy. There are bilateral pleural effusions. There is associated dependent atelectasis. Heart size is upper limits of normal. There has been no interval change in the appearance of the chest. IMPRESSION: NO INTERVAL CHANGE IN THE APPEARANCE OF THE CHEST.
[2017-08-23] MEDS: FERROUS SULFATE 325 MG TAB PO SCH ×2 (08:07→19:54)
[2017-08-23] MEDS: ASPIRIN 81 MG PO SCH (08:07)
[2017-08-23] MEDS: ASCORBIC ACID 500 MG TAB PO SCH ×3 (08:07→20:20)
[2017-08-23] MEDS: acetaZOLAMIDE 250 MG TAB PO SCH ×2 (08:07→20:19)
[2017-08-23] MEDS: POLYETHYLENE GLYCOL 3350 17 GM POWD.PACK PO SCH (08:08)
[2017-08-23] MEDS: guaiFENesin-DM 100-10MG/5ML 10 ML CUP PO SCH ×4 (09:32→20:20)
--- NOTE | 2017-08-23 09:38 | P.PN ---
Subjective Progress Note Date: 08/23/17 Principal diagnosis: CHF this is a pleasant 82-year-old gentleman with a past medical history significant for severe cardiomyopathy and known EF around 35%, known coronary artery disease and status post coronary artery bypass grafting, valvular heart disease, as well as chronic atrial fibrillation, was admitted to the hospital was congestive heart failure exacerbation secondary to systolic dysfunction. On follow-up with him today, he still have bilateral lower extremities edema and also he still have very diminished breathing sounds above the right lung. The chest x-ray continues to show finding consistent was congestive heart failure. He continues to be on Bumex drip. The creatinine continues to be stable and around 1.9. Objective - Vital Signs Vital signs: Vital Signs Temp 96.0 F L 08/23/17 08:00 Pulse 80 08/23/17 08:00 Resp 18 08/23/17 08:00 BP 111/40 08/23/17 08:00 Pulse Ox 92 L 08/23/17 08:00 Intake & Output 08/22/17 08/23/17 08/23/17 18:59 06:59 18:59 Intake Total 989.667 236 Output Total 400 Balance 589.667 236 Weight 82.7 kg Intake: Intake, IV Titration 239.667 Amount Bumetanide 12 mg In 239.667 Dextrose 5% in Water 192 ml @ 0.5 MG/HR 10 mls/hr IV .Q24H [facility] Rx#: [id number] Oral 750 236 Output: Urine 400 Other: Voiding Method Urinal Urinal Urinal Diaper Diaper Diaper # Voids 1 - Constitutional General appearance: Present: no acute distress - Respiratory Respiratory: bilateral: diminished - Cardiovascular Rhythm: irregularly irregular Heart sounds: normal: S1, S2 Abnormal Heart Sounds: Present: systolic murmur - Labs CBC & Chem 7: 08/20/17 05:54 08/23/17 06:16 Labs: Abnormal Lab Results - Last 24 Hours (Table) 08/23/17 Range/Units 06:16 Chloride 95 L (98-107) mmol/L Carbon Dioxide 35 H (22-30) mmol/L BUN 80 H* (9-20) mg/dL Creatinine 1.93 H (0.66-1.25) mg/dL Assessment and Plan Assessment: assessment #1 congestive heart failure exacerbation secondary to systolic dysfunction #2 severe ischemic cardiomyopathy #3 severe underlying CAD #4 chronic atrial fibrillation not on anticoagulation #5 chronic kidney disease seems to be stable #6 multiple comorbid conditions. Plan #1 continue the Bumex drip at this point #2 continue monitor the kidney function and electrolytes #3 Dr. Montes is evaluating the patient for possible pleurocentesis #4 continue following up with him.
[2017-08-23] MEDS ORDERED: LIDOCAINE 1% INJ 10MG/ML (20 ML MDV) SQ STA (09:56)
--- NOTE | 2017-08-23 11:03 | XR ---
EXAMINATION TYPE: XR chest 1V portable DATE OF EXAM: 08/23/2017 HISTORY: thoracentesis. REFERENCE: Previous study of earlier today. FINDINGS: There has been a midline sternotomy. There continues to be some left pleural fluid. I do not see evidence of pneumothorax. The heart is en larged. The right hemidiaphragm is now in normal location there continues to be minimal increased den sity at the right lung base. This may represent some residual pleural fluid or infiltrate. Atelectasi s is also a possibility. IMPRESSION: 1. CARDIOMEGALY. 2. PERSISTENT LEFT-SIDED EFFUSION AND LEFT BASILAR AIRSPACE DISEASE. 3. RESOLUTION OF THE PATIENT'S ELEVATED RIGHT HEMIDIAPHRAGM WHICH WAS LIKELY DUE TO SUBPULMONIC FLUID . 4. SOME RESIDUAL RIGHT BASILAR AIRSPACE DISEASE.
--- NOTE | 2017-08-23 11:57 | P.PN ---
Subjective Progress Note Date: 08/23/17 This is an 82-year-old male patient was hospitalized because of worsening shortness of breath. The patient is currently being treated for an acute decompensation of congestion heart failure. The patient was initially placed on IV Lasix and based on some suboptimal response the patient was placed on a Bumex drip. He is producing adequate amount of urine output. His lower extremities edema is improving. His chest x-ray shows organomegaly and small bilateral pleural effusions. The patient has multiple medical problems and comorbidities. He is currently free of any angina. His undergone previous bypass surgery for coronary artery disease. He has chronic renal failure. He also has chronic atrial fibrillation and he has been on no antiplatelet coagulation based on previous history of GI bleed. He is known to have also COPD and hypertension and chronic dyspnea. Note that on admission, his proBNP level was 38,000. His creatinine was at 1.9. He is afebrile. He is pulse oxing on the Naprosyn 2 L of oxygen by nasal cannula. HEENT denies having any specific complaints on today's evaluation. He is responding nicely to diuretics and the patient's creatinine is down to 1.6. His echocardiogram from this current admission shows an ejection fraction of 35-40% along with segmental wall motion abnormalities as the anterior wall is hypokinetic and there is also to hypokinesia. There is no evidence also right-sided failure knowing that the patient's right ventricular size and structures enlarged and dilated so is the right atrium. So in the left atrium and there is moderate to severe degree of mitral regurgitation and severe tricuspid regurgitation along with a pulmonary artery pressure of 88 mmHg. As such this patient has biventricular failure in addition to underlying coronary artery disease and valvular heart disease with moderate severe mitral regurgitation. On 08/23/2017 I'm seeing this patient for a follow-up. I discussed the case with cardiology. As mentioned earlier the patient was hospitalized for an acute CHF and the respiratory failure. The patient was not responding nicely to diuretics it was offered. He was offered initially Lasix and following that he was switched to a Bumex drip. He continued to have large bilateral pleural effusion on subsequent chest x-rays. Based on that, I performed a thoracentesis of the right lung today and this was done at the bedside without any complications and the total amount of 1.6 L of pleural fluid was aspirated from the right lung. The fluid was light yellow in color. No complications. The patient felt better following the procedure. We are continuing to diuretics and may consider performing a thoracentesis on the left at a later stage. Would optimize the fluid balance. We'll continue to follow this patient with cardiology. Objective - Vital Signs Vital signs: Vital Signs Temp 96.2 F L 08/23/17 11:34 Pulse 78 08/23/17 11:34 Resp 18 08/23/17 11:34 BP 96/47 08/23/17 11:34 Pulse Ox 96 08/23/17 11:34 Intake & Output 08/22/17 08/23/17 08/23/17 18:59 06:59 18:59 Intake Total 989.667 236 Output Total 400 Balance 589.667 236 Weight 82.7 kg Intake: Intake, IV Titration 239.667 Amount Bumetanide 12 mg In 239.667 Dextrose 5% in Water 192 ml @ 0.5 MG/HR 10 mls/hr IV .Q24H [facility] Rx#: [id number] Oral 750 236 Output: Urine 400 Other: Voiding Method Urinal Urinal Urinal Diaper Diaper Diaper # Voids 1 - Exam Gen. appearance the patient is calm comfortable no acute distress. He is awake and alert and sitting up on a chair.Head exam was generally normal. There was no scleral icterus or corneal arcus. Mucous membranes were moist.Neck was supple and without jugular venous distension, thyromegaly, or carotid bruits. Carotids were easily palpable bilaterally. There was no adenopathy. The patient has bilateral jugular venous distention and scars of previous endarterectomy in the neck. Lungs are diminished in lung bases bilaterally some and there is also dullness to percussion related to underlying pleural effusion. No labored breathing. The dullness in the right side improved following the thoracentesis. No use of accessory muscles of breathing.Abdominal exam revealed normal bowel sounds. The abdomen was soft, non -tender, and without masses, organomegaly, or appreciable enlargement of the abdominal aorta. Extremities reveal +1-2 pitting edema bilaterally reaching the knees. No cyanosis or clubbing.Examination of the skin revealed no evidence of significant rashes, suspicious appearing nevi or other concerning lesions. Neurologically the patient awake and alert and there is no focal neurological deficit. Psychiatric to the patient has normal mood and affect. - Labs CBC & Chem 7: 08/20/17 05:54 08/23/17 06:16 Labs: Abnormal Lab Results - Last 24 Hours (Table) 08/23/17 Range/Units 06:16 Chloride 95 L (98-107) mmol/L Carbon Dioxide 35 H (22-30) mmol/L BUN 80 H* (9-20) mg/dL Creatinine 1.93 H (0.66-1.25) mg/dL Assessment and Plan Plan: Assessment 1 acute decompensated biventricular heart failure, systolic in nature with obvious signs of fluid overload 2 bilateral pleural effusion secondary to above 3 bilateral lower extremity edema secondary to above 4 coronary artery disease with decreased bypass surgery 5 CHF systolic failure, chronic with an ejection fraction of 30-35%. 6 valvular heart disease with moderate to severe mitral regurgitation and severe tricuspid regurgitation with severe pulmonary hypertension 7 right-sided heart failure secondary to above, PA pressures in the severe range , 88 mmHg 8 chronic renal failure with stage III kidney disease 9 chronic atrial fibrillation rate controlled on no anticoagulants for now 10 COPD 11 hypertension 12 hyperlipidemia 13 degenerative arthritis 14 carotid artery disease with bilateral endarterectomy 15 endovascular stent involving the lower arteries for renal artery stenosis 16 chronic anemia, multifactorial 17 positive troponin leak secondary to above, nonspecific, not related to an acute cardiac event or coronary event. Plan Very complicated debilitated male patient with multiple medical pounds and comorbidities specifically the active issue for now as the decompensated biventricular heart failure. The patient is conditions being optimized with Lasix initially and subsequently was switched to Bumex drip. The patient did not show much response with diuretics over the past 24 hours. I performed a thoracentesis on this patient is total of 1.6 L of fluid was drained from his right lung. May consider draining his left lung with the next 24-48 hours as long as the patient remains short of breath and not responsive to diuretics. We 'll continue to follow.
[2017-08-23] MEDS: FOLIC ACID 1 MG TAB PO SCH (12:11)
--- NOTE | 2017-08-23 12:39 | OP ---
OPERATIVE REPORT THORACENTESIS Indication: Pleural effusion. Site: Right side. A time-out was completed verifying correct patient, procedure, site, positioning , and implant (s) or special equipment if applicable. Ultrasound guidance was not used and appropriate fluid pocket was identified and marked. Patient was positioned, prepped and draped in usual sterile fashion. Lidocaine was used to anesthetize the area. A Thoracentesis catheter was introduced into the pleural space and fluid was removed. Blood loss was none. A chest x-ray was ordered to evaluate for pneumothorax. Total Fluid Removed: 1.6 L Color of Fluid: Clear, yellowish pleural fluid. Fluid was/was not sent for appropriate laboratory tests. Patient tolerated the procedure well and there were no complications. No bedside complications. No pneumothorax following the procedure. The patient tolerated the procedure well. MMODL / IJN: [id number] /
[2017-08-23] MEDS: HYDROcodone/APAP 5-325MG 1 EACH TAB PO PRN (14:55)
[2017-08-23 15:30] LABS: Appearance,BF Clear; Color,BF Yellow; Nucleated Cells, Body Fluid 5 /uL
[2017-08-23 15:31] LABS: RBC, Body Fluid 1 /uL
[2017-08-23] MEDS ORDERED: ACETAMINOPHEN TAB 325 MG TAB PO PRN (18:53)
--- NOTE | 2017-08-23 19:36 | XR ---
EXAMINATION TYPE: XR chest 1V portable DATE OF EXAM: 08/23/2017 Comparison: Earlier today Clinical History: 82-year-old male status post right-sided thoracentesis, rule out pneumothorax Findings: The patient's chin is down obscuring the medial apices. Within this limitation, no appreciable pneumo thorax. Median sternotomy wires are present. Heart remains mildly enlarged. Moderate left pleural eff usion persists. Residual small right pleural effusion and bibasilar densities, left greater than righ t. Impression: 1. Continued moderate left and small right effusions with adjacent atelectasis and/or consolidation. 2. No appreciable pneumothorax though the patient's chin is down obscuring portions of the apices.
[2017-08-23] MEDS: ATORVASTATIN 20 MG TAB PO SCH (19:54)
[2017-08-23] MEDS: BUMETANIDE 12 MG in DEXTROSE 5% IN WATER 192 ML IV SCH ×2 (19:59)
--- NOTE | 2017-08-23 21:30 | PN ---
PROGRESS NOTE DATE OF SERVICE: August 23, 2017. PRESENTING COMPLAINT: Short of breath. INTERVAL HISTORY: Patient with CHF exacerbation, been on Bumex drip because of incontinence, not able to have a strict I's and O's, but making a lot of urine. Breathing slowly getting better. Did have a thoracentesis on the right side by Dr. Montes. About a L was removed. Tolerating some diet. Did sit up in the chair. REVIEW OF SYSTEMS: Done for constitutional, cardiovascular, GI, pulmonary, relevant findings as above. CURRENT MEDICATIONS: Include Bumex drip, Diamox was added yesterday. PHYSICAL EXAMINATION: Temperature 96, pulse 72, respiratory 20, blood pressure 112/69, pulse ox 92% on room air. General appearance: Sitting up in a chair, awake. Eyes: Pupils equal. Conjunctivae normal. HEENT: External appearance of nose and ears normal. Oral cavity normal. Neck JVD unable to assess. Mass not palpable. Respiratory effort lungs decreased sounds at the bases. Cardiovascular: 1st and 2nd sounds normal. Edema still present but coming down. ABDOMEN: Soft, nontender. Liver and spleen not palpable. Psychiatry: Alert and oriented times three. Mood and affect normal. INVESTIGATIONS: Potassium 4.2, bicarb 35, BUN 18, creatinine 1.93. ASSESSMENT: 1. Acute on chronic congestive heart failure exacerbation from systolic dysfunction and diastolic dysfunction ejection fraction 35-40%, slow to respond. 2. Bilateral pleural effusion more on the right side from congestive heart failure, status post thoracentesis. 3. Hypertensive heart disease. 4. Moderate to severe mitral regurgitation, severe tricuspid regurgitation, nonrheumatic. 5. 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 6. Coronary artery disease prior history of coronary bypass. 7. Chronic obstructive pulmonary disease. 8. Essential hypertension. 9. Hyperlipidemia. 10.Primary osteoarthritis multiple joints. 11.Persistent atrial fibrillation. 12.Chronic kidney disease, stage IIIB, from hypertensive nephrosclerosis. 13.Troponin leak from congestive heart failure, not acute coronary syndrome. PLAN: We will keep the patient on Bumex drip probably for another 24 hours. Keep the patient on Diamox. The patient is status post thoracentesis. Care was discussed the patient. Overall prognosis is guarded. MMODL / IJN: [id number] /
[2017-08-23 21:37] LABS: Anisocytosis Slight; Basophils % (A) 0 %; Eosinophils % (A) 1 %; HCT 23.4 % (39.0-53.0); Hypochromasia Marked; Lymphocytes # (A) 0.3 k/uL (1.0-4.8); Lymphocytes % (A) 6 %; MCH 29.1 pg (25.0-35.0); MCHC 29.2 g/dL (31.0-37.0); MCV 99.6 fL (80.0-100.0); Macrocytosis Slight; Mean Platelet Volume 8.8; Monocytes # (A) 0.4 k/uL (0-1.0); Monocytes % (A) 7 %; Neutrophils # (A) 4.4 k/uL (1.3-7.7); Neutrophils % (A) 83 %; Platelet Count 162 k/uL (150-450); Poikilocytosis Slight; RBC 2.35 m/uL (4.30-5.90); RDW 17.4 % (11.5-15.5); WBC 5.3 k/uL (3.8-10.6)
[2017-08-23 21:41] LABS: HGB 6.9 gm/dL (13.0-17.5)
[2017-08-23 22:02] LABS: Calcium 8.9 mg/dL (8.4-10.2); Magnesium 2.3 mg/dL (1.6-2.3); Total Bilirubin 0.3 mg/dL (0.2-1.3); Total Protein 4.8 g/dL (6.3-8.2)
[2017-08-23 22:06] LABS: Albumin 2.6 g/dL (3.5-5.0)
[2017-08-23 22:48] LABS: Potassium 4.3 mmol/L (3.5-5.1)
[2017-08-23 23:15] LABS: Total Protein, Body Fluid 2000 mg/dL
[2017-08-24] MEDS: HYDROcodone/APAP 5-325MG 1 EACH TAB PO PRN (05:36)
[2017-08-24 05:44] LABS: Appearance,Urine Turbid (Clear); Bacteria,Urine Moderate /hpf; Bilirubin,Urine Negative (Negative); Blood,Urine Small (Negative); Color,Urine Yellow; Glucose,Urine (UA) Negative (Negative); Hyaline Casts,Urine 2776 /lpf (0-2); Ketones,Urine Negative (Negative); Leukocyte Esterase,Urine Large (Negative); Nitrite,Urine Negative (Negative); PH, Urine 6.5 (5.0-8.0); Protein,Urine 1+ (Negative); RBC,Urine 17 /hpf (0-5); Specific Gravity,Urine 1.015 (1.001-1.035); Urobilinogen,Urine <2.0 mg/dL (<2.0); WBC,Urine >182 /hpf (0-5)
[2017-08-24] MEDS: CARVEDILOL 3.125 MG TAB PO SCH ×2 (06:39→17:42)
[2017-08-24] MEDS: CALCIUM ACETATE 667 MG CAP PO SCH ×3 (06:39→16:55)
[2017-08-24 06:52] LABS: Calcium 9.2 mg/dL (8.4-10.2); Potassium 4.4 mmol/L (3.5-5.1)
[2017-08-24 07:11] LABS: Anisocytosis Slight; HCT 29.8 % (39.0-53.0); Hypochromasia Marked; Macrocytosis Slight; Mean Platelet Volume 9.5; Platelet Count 205 k/uL (150-450); Poikilocytosis Slight; RBC 2.98 m/uL (4.30-5.90); RDW 16.9 % (11.5-15.5)
[2017-08-24 07:19] LABS: HGB 8.9 gm/dL (13.0-17.5)
[2017-08-24 08:01] LABS: Eosinophils # (M) 0.12 k/uL (0-0.7); Lymphocytes # (M) 0.25 k/uL (1.0-4.8); Myelocytes # (M) 0.06 k/uL (0); Myelocytes % 1 %; Neutrophils # (M) 5.33 k/uL (1.3-7.7); Neutrophils % (M) 86 %; Nucleated Red Blood Cells 1 /100 WBC (0-0); Total Cells Counted 200; WBC 6.2 k/uL (3.8-10.6)
[2017-08-24 08:02] LABS: Polychromasia Present
[2017-08-24 08:03] LABS: Mixed Population RBC Present
[2017-08-24 08:04] LABS: RBC Fragments Present; Spherocytes Present
[2017-08-24] MEDS: POLYETHYLENE GLYCOL 3350 17 GM POWD.PACK PO SCH (09:16)
[2017-08-24] MEDS: guaiFENesin-DM 100-10MG/5ML 10 ML CUP PO SCH ×2 (09:16→13:34)
[2017-08-24] MEDS: FERROUS SULFATE 325 MG TAB PO SCH ×2 (09:17→20:58)
[2017-08-24] MEDS: ASCORBIC ACID 500 MG TAB PO SCH ×3 (09:17→20:59)
[2017-08-24] MEDS: acetaZOLAMIDE 250 MG TAB PO SCH ×2 (09:17→21:00)
[2017-08-24] MEDS: ASPIRIN 81 MG PO SCH (09:17)
--- NOTE | 2017-08-24 10:50 | P.PN ---
Subjective Progress Note Date: 08/24/17 Principal diagnosis: Acute exacerbation of systolic congestive heart failure. This is an 82-year-old male patient was hospitalized because of worsening shortness of breath. The patient is currently being treated for an acute decompensation of congestion heart failure. The patient was initially placed on IV Lasix and based on some suboptimal response the patient was placed on a Bumex drip. He is producing adequate amount of urine output. His lower extremities edema is improving. His chest x-ray shows organomegaly and small bilateral pleural effusions. The patient has multiple medical problems and comorbidities. He is currently free of any angina. His undergone previous bypass surgery for coronary artery disease. He has chronic renal failure. He also has chronic atrial fibrillation and he has been on no antiplatelet coagulation based on previous history of GI bleed. He is known to have also COPD and hypertension and chronic dyspnea. Note that on admission, his proBNP level was 38,000. His creatinine was at 1.9. He is afebrile. He is pulse oxing on the Naprosyn 2 L of oxygen by nasal cannula. HEENT denies having any specific complaints on today's evaluation. He is responding nicely to diuretics and the patient's creatinine is down to 1.6. His echocardiogram from this current admission shows an ejection fraction of 35-40% along with segmental wall motion abnormalities as the anterior wall is hypokinetic and there is also to hypokinesia. There is no evidence also right-sided failure knowing that the patient's right ventricular size and structures enlarged and dilated so is the right atrium. So in the left atrium and there is moderate to severe degree of mitral regurgitation and severe tricuspid regurgitation along with a pulmonary artery pressure of 88 mmHg. As such this patient has biventricular failure in addition to underlying coronary artery disease and valvular heart disease with moderate severe mitral regurgitation. On 08/23/2017 I'm seeing this patient for a follow-up. I discussed the case with cardiology. As mentioned earlier the patient was hospitalized for an acute CHF and the respiratory failure. The patient was not responding nicely to diuretics it was offered. He was offered initially Lasix and following that he was switched to a Bumex drip. He continued to have large bilateral pleural effusion on subsequent chest x-rays. Based on that, I performed a thoracentesis of the right lung today and this was done at the bedside without any complications and the total amount of 1.6 L of pleural fluid was aspirated from the right lung. The fluid was light yellow in color. No complications. The patient felt better following the procedure. We are continuing to diuretics and may consider performing a thoracentesis on the left at a later stage. Would optimize the fluid balance. We'll continue to follow this patient with cardiology. The patient is seen again today 08/24/2017 in follow-up on the selective care unit. He is currently sitting up in a chair at the bedside. He is awake and alert in no acute distress. He is status post right-sided thoracentesis of 1.6 L of suspected transitive fluid removed. He is breathing easier today as compared to yesterday. Maintaining good O2 saturations in the 90s on room air. His been afebrile. Hemodynamically stable. White count 6.2. Hemoglobin 8.9 status post 1 unit packed red blood cells. BUN 85, creatinine 2.10. Objective - Vital Signs Vital signs: Vital Signs Temp 97 F L 08/24/17 08:00 Pulse 94 08/24/17 08:00 Resp 20 08/24/17 08:00 BP 106/50 08/24/17 08:00 Pulse Ox 98 08/24/17 03:36 Intake & Output 08/23/17 08/24/17 08/24/17 18:59 06:59 18:59 Intake Total 416 772.5 120 Output Total 300 Balance 116 772.5 120 Weight 82.4 kg Intake: Intake, IV Titration 232.5 Amount Bumetanide 12 mg In 232.5 Dextrose 5% in Water 192 ml @ 0.5 MG/HR 10 mls/hr IV .Q24H [facility] Rx#: [id number] Oral 416 230 120 Blood Product 310 Rc As-1 Unit 310 [id number] Output: Urine 300 Other: Voiding Method Diaper Diaper # Voids 1 - Exam Gen. appearance the patient is calm comfortable no acute distress. He is awake and alert and sitting up on a chair.Head exam was generally normal. There was no scleral icterus or corneal arcus. Mucous membranes were moist.Neck was supple and without jugular venous distension, thyromegaly, or carotid bruits. Carotids were easily palpable bilaterally. There was no adenopathy. The patient has bilateral jugular venous distention and scars of previous endarterectomy in the neck. Lungs are diminished in lung bases bilaterally some and there is also dullness to percussion related to underlying pleural effusion. No labored breathing. The dullness in the right side improved following the thoracentesis. No use of accessory muscles of breathing.Abdominal exam revealed normal bowel sounds. The abdomen was soft, non -tender, and without masses, organomegaly, or appreciable enlargement of the abdominal aorta. Extremities reveal +1-2 pitting edema bilaterally reaching the knees. No cyanosis or clubbing.Examination of the skin revealed no evidence of significant rashes, suspicious appearing nevi or other concerning lesions. Neurologically the patient awake and alert and there is no focal neurological deficit. Psychiatric to the patient has normal mood and affect. - Labs CBC & Chem 7: 08/24/17 05:46 08/24/17 05:46 Labs: Abnormal Lab Results - Last 24 Hours (Table) 08/23/17 08/23/17 08/23/17 Range/Units 21:10 21:10 22:30 RBC 2.35 L (4.30-5.90) m/uL Hgb 6.9 L* D (13.0-17.5) gm/dL Hct 23.4 L (39.0-53.0) % MCHC 29.2 L (31.0-37.0) g/dL RDW 17.4 H (11.5-15.5) % Lymphocytes # 0.3 L (1.0-4.8) k/uL Lymphocytes # (Manual) (1.0-4.8) k/uL Myelocytes # (Manual) (0) k/uL Nucleated RBCs (0-0) /100 WBC Chloride 93 L (98-107) mmol/L Carbon Dioxide 33 H (22-30) mmol/L BUN 83 H* (9-20) mg/dL Creatinine 2.10 H (0.66-1.25) mg/dL Glucose 159 H (74-99) mg/dL Total Protein 4.8 L (6.3-8.2) g/dL Albumin 2.6 L (3.5-5.0) g/dL Urine Protein (Negative) Urine Blood (Negative) Ur Leukocyte Esterase (Negative) Urine RBC (0-5) /hpf Urine WBC (0-5) /hpf Urine WBC Clumps (None) /hpf Urine Bacteria (None) /hpf Hyaline Casts (0-2) /lpf Crossmatch See Detail 08/24/17 08/24/17 08/24/17 Range/Units 05:30 05:46 05:46 RBC 2.98 L (4.30-5.90) m/uL Hgb 8.9 L D (13.0-17.5) gm/dL Hct 29.8 L (39.0-53.0) % MCHC 30.0 L (31.0-37.0) g/dL RDW 16.9 H (11.5-15.5) % Lymphocytes # (1.0-4.8) k/uL Lymphocytes # (Manual) 0.25 L (1.0-4.8) k/uL Myelocytes # (Manual) 0.06 H (0) k/uL Nucleated RBCs 1 H (0-0) /100 WBC Chloride 94 L (98-107) mmol/L Carbon Dioxide 33 H (22-30) mmol/L BUN 85 H* (9-20) mg/dL Creatinine 2.10 H (0.66-1.25) mg/dL Glucose (74-99) mg/dL Total Protein (6.3-8.2) g/dL Albumin (3.5-5.0) g/dL Urine Protein 1+ H (Negative) Urine Blood Small H (Negative) Ur Leukocyte Esterase Large H (Negative) Urine RBC 17 H (0-5) /hpf Urine WBC >182 H (0-5) /hpf Urine WBC Clumps Many H (None) /hpf Urine Bacteria Moderate H (None) /hpf Hyaline Casts 2776 H (0-2) /lpf Crossmatch Assessment and Plan Assessment: Assessment 1 acute hypoxic respiratory failure secondary to acute decompensated biventricular heart failure, systolic in nature with obvious signs of fluid overload 2 bilateral pleural effusion secondary to above. Status post right-sided thoracentesis with 1.6 L removed. 3 bilateral lower extremity edema secondary to above 4 coronary artery disease with decreased bypass surgery 5 CHF systolic failure, chronic with an ejection fraction of 30-35%. 6 valvular heart disease with moderate to severe mitral regurgitation and severe tricuspid regurgitation with severe pulmonary hypertension 7 right-sided heart failure secondary to above, PA pressures in the severe range , 88 mmHg 8 chronic renal failure with stage III kidney disease 9 chronic atrial fibrillation rate controlled on no anticoagulants for now 10 COPD 11 hypertension 12 hyperlipidemia 13 degenerative arthritis 14 carotid artery disease with bilateral endarterectomy 15 endovascular stent involving the lower arteries for renal artery stenosis 16 chronic anemia, multifactorial 17 positive troponin leak secondary to above, nonspecific, not related to an acute cardiac event or coronary event. Plan: The patient was seen and evaluated by Dr. Parsons. Chest x-ray revealed continued left sided pleural effusion. We will obtain an ultrasound of the left chest to see if there is enough free-flowing fluid to require thoracentesis. Status post right-sided thoracentesis. His edema is improving. He remains on a Bumex drip. We'll continue with his current medications. We' ll increase his activity as tolerated. We will continue to follow. I, the cosigning physician, performed a history & physical examination of the patient. Lungs sounds have crackles in posterior bases more so on the left. Maintaining good O2 saturations in the 90s on room air. I discussed the assessment and plan of care with my nurse practitioner, Chrissy Snow. I attest to the above note as dictated by her.
--- NOTE | 2017-08-24 10:52 | P.PN ---
Subjective Progress Note Date: 08/24/17 Principal diagnosis: CHF This is an 82-year-old gentleman with history of coronary artery disease and prior bypass surgery, hyperlipidemia, renal insufficiency, chronic persistent atrial fibrillation, not on anticoagulation because of history of GI bleed Congestive heart failure, COPD, hypertension, who presented to the hospital with symptoms of progressively worsening shortness of breath. He was seen in consultation yesterday by Dr. Nunez and initiated on IV Lasix, he did diurese well through the night. Creatinine today is down to 1.9. I did have a lengthy discussion today with the daughter regarding anticoagulation. Patient had been on anticoagulation in the past and is no longer on it because of GI bleeding. We explained to the patient as risk of stroke not being on anticoagulation and we also explained that we will put the patient on a baby aspirin daily. He was sitting up in the chair today at the time of my examination, states he is feeling somewhat better but still short of breath. Continues to have mild peripheral edema. Blood pressure 124/72, heart rate in the 80s, temperature 97.2, 100% on 2 L of oxygen. White blood cell count 5.0, hemoglobin 9.5, platelet count 197. Sodium 142, potassium 4.1, BUN 76, creatinine 1.9. His BNP level on admission was 38,900. 08/21/2017 Patient was seen and examined this morning, diuresing on IV Lasix. His weight is down 1 kg today. Chest x-ray was repeated today which revealed no change in pleural effusions. Ejection fraction by echocardiogram showed an EF of 35-40%. Moderate to severe MR, severe TR, severe pulmonary hypertension. Blood pressure 138/60 with a heart rate in the 70s to 80s. 99% on 2 L of oxygen. Sodium 142, potassium 3.9, BUN 74, creatinine 1.8. 08/22/2017 Seen and examined this morning, sitting up in the chair at bedside, edema improving significantly. Breathing also improving. Good urine output, weight is down today, creatinine 1.6. We will continue with the IV Bumex, repeat chest x-ray tomorrow morning. 08/24/2017 Patient seen and examined this morning, sitting up in the chair at bedside. He did undergo a right-sided thoracentesis, 1.6 L of total fluid removed. Chest x- ray performed post thoracentesis revealed continued moderate left and small right effusions with adjacent atelectasis and/or consolidation. Blood pressure 106/50 with a heart rate in the 90s. White blood cell count 6.2, hemoglobin 8.9 , platelet count 205. Sodium 139, potassium 4.4, BUN 85, creatinine 2.1. Objective - Vital Signs Vital signs: Vital Signs Temp 97 F L 08/24/17 08:00 Pulse 94 08/24/17 08:00 Resp 20 08/24/17 08:00 BP 106/50 08/24/17 08:00 Pulse Ox 98 08/24/17 03:36 Intake & Output 08/23/17 08/24/17 08/24/17 18:59 06:59 18:59 Intake Total 416 772.5 120 Output Total 300 Balance 116 772.5 120 Weight 82.4 kg Intake: Intake, IV Titration 232.5 Amount Bumetanide 12 mg In 232.5 Dextrose 5% in Water 192 ml @ 0.5 MG/HR 10 mls/hr IV .Q[facility]H [facility] Rx#: [id number] Oral 416 230 120 Blood Product 310 Rc As-1 Unit 310 [id number] Output: Urine 300 Other: Voiding Method Diaper Diaper # Voids 1 - Exam PHYSICAL EXAMINATION: HEENT: Head is atraumatic, normocephalic. Pupils equal, round. Neck is supple. There is elevated jugular venous pressure. HEART EXAMINATION: Heart S1 and S2 irregularly irregular a systolic ejection murmur is heard. CHEST EXAMINATION: Lungs reveal rales bilaterally with improvement in air entry to right posterior base . ABDOMEN: Soft, nontender. Bowel sounds are heard. No organomegaly noted. EXTREMITIES: 2+ peripheral pulses with 1+ evidence of peripheral edema, bilateral Cordell wraps in place . NEUROLOGIC patient is awake, alert and oriented -3. . - Labs CBC & Chem 7: 08/24/17 05:46 08/24/17 05:46 Labs: Abnormal Lab Results - Last 24 Hours (Table) 08/23/17 08/23/17 08/23/17 Range/Units 21:10 21:10 22:30 RBC 2.35 L (4.30-5.90) m/uL Hgb 6.9 L* D (13.0-17.5) gm/dL Hct 23.4 L (39.0-53.0) % MCHC 29.2 L (31.0-37.0) g/dL RDW 17.4 H (11.5-15.5) % Lymphocytes # 0.3 L (1.0-4.8) k/uL Lymphocytes # (Manual) (1.0-4.8) k/uL Myelocytes # (Manual) (0) k/uL Nucleated RBCs (0-0) /100 WBC Chloride 93 L (98-107) mmol/L Carbon Dioxide 33 H (22-30) mmol/L BUN 83 H* (9-20) mg/dL Creatinine 2.10 H (0.66-1.25) mg/dL Glucose 159 H (74-99) mg/dL Total Protein 4.8 L (6.3-8.2) g/dL Albumin 2.6 L (3.5-5.0) g/dL Urine Protein (Negative) Urine Blood (Negative) Ur Leukocyte Esterase (Negative) Urine RBC (0-5) /hpf Urine WBC (0-5) /hpf Urine WBC Clumps (None) /hpf Urine Bacteria (None) /hpf Hyaline Casts (0-2) /lpf Crossmatch See Detail 08/24/17 08/24/17 08/24/17 Range/Units 05:30 05:46 05:46 RBC 2.98 L (4.30-5.90) m/uL Hgb 8.9 L D (13.0-17.5) gm/dL Hct 29.8 L (39.0-53.0) % MCHC 30.0 L (31.0-37.0) g/dL RDW 16.9 H (11.5-15.5) % Lymphocytes # (1.0-4.8) k/uL Lymphocytes # (Manual) 0.25 L (1.0-4.8) k/uL Myelocytes # (Manual) 0.06 H (0) k/uL Nucleated RBCs 1 H (0-0) /100 WBC Chloride 94 L (98-107) mmol/L Carbon Dioxide 33 H (22-30) mmol/L BUN 85 H* (9-20) mg/dL Creatinine 2.10 H (0.66-1.25) mg/dL Glucose (74-99) mg/dL Total Protein (6.3-8.2) g/dL Albumin (3.5-5.0) g/dL Urine Protein 1+ H (Negative) Urine Blood Small H (Negative) Ur Leukocyte Esterase Large H (Negative) Urine RBC 17 H (0-5) /hpf Urine WBC >182 H (0-5) /hpf Urine WBC Clumps Many H (None) /hpf Urine Bacteria Moderate H (None) /hpf Hyaline Casts 2776 H (0-2) /lpf Crossmatch Assessment and Plan Plan: Assessment and plan #1 congestive heart failure, systolic acute on chronic #2 known history of coronary artery disease with prior bypass surgery #3 history of valve replacement #4 COPD #5 hypertension #6 hyperlipidemia #7 chronic persistent atrial fibrillation, not on anticoagulation because of history of prior GI bleed #8 chronic kidney disease #9 abnormal troponin, not consistent with acute coronary syndrome, likely secondary to abnormal renal function. Plan Patient did undergo a right sided thoracentesis yesterday, repeat chest x-ray shows a moderate size left and small right effusion. He continues to be on the IV Bumex. Ultrasound of the left chest will be performed today. We will continue current therapy, DNP note has been reviewed, I agree with a documented findings and plan of care. Patient was seen and examined.
--- NOTE | 2017-08-24 12:14 | US ---
EXAMINATION TYPE: US chest DATE OF EXAM: 08/24/2017 COMPARISON: Radiograph for 06/13/2017 CLINICAL HISTORY: 82-year-old male Left pleural effusion. Technique: Multiple sonographic images of the posterior lower left hemithorax for assessment of pleur al effusion. FINDINGS: Left Pleural Effusion size: 5.5 cm Left skin surface to fluid distance: 1.6 cm Left side marked for possible thoracentesis outside the dept. Pulmonologists are able to review the images in the patient?s EMR. IMPRESSIONS: Moderate sized left pleural effusion with marking performed.
[2017-08-24] MEDS: FOLIC ACID 1 MG TAB PO SCH (13:34)
--- NOTE | 2017-08-24 20:10 | PN ---
PROGRESS NOTE DATE OF SERVICE: 08/24/2017. PRESENTING COMPLAINT: Short of breath. INTERVAL HISTORY: Patient has CHF exacerbation and remains on Bumex drip. Because of incontinence, strict I&O cannot be maintained, but patient is still making a significant amount of urine. Patient had thoracentesis on the right side. Tolerating some diet. Has not walked much. REVIEW OF SYSTEMS: Done for constitutional, cardiovascular, GI, pulmonary; relevant findings as above. Edema is still present. CURRENT MEDICATIONS: Include Bumex drip. PHYSICAL EXAMINATION: Temperature 96.9, pulse 80, respiration 18, blood pressure 130/76. GENERAL APPEARANCE: Sitting up in a chair. Tired-appearing. EYES: Pupils equal. Conjunctivae normal. HEENT: External appearance of nose and ears normal. Oral cavity normal. NECK: JVD not raised. Mass not palpable. RESPIRATORY: Effort increased. LUNGS: Decreased breath sounds at the bases. CARDIOVASCULAR: First and second sounds normal. Edema present, with Cordell wrap. ABDOMEN: Soft, nontender. Liver and spleen not palpable. PSYCHIATRY: Alert and oriented x3. Mood and affect somewhat tired-appearing. INVESTIGATIONS: White count 6.2, hemoglobin 8.9, potassium 4.4. BUN 85, creatinine 2.10. ASSESSMENT: 1. Acute on chronic congestive heart failure from systolic dysfunction and diastolic dysfunction, ejection fraction 30% to 35%, slow to respond. Patient remains on a Bumex drip. 2. Bilateral pleural effusion, more on the right side that had thoracentesis, from congestive heart failure. 3. Hypertensive heart disease. 4. Moderate to severe mitral regurgitation and severe tricuspid regurgitation, non- rheumatic. 5. 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 6. Coronary artery disease with prior history of coronary artery bypass. 7. Chronic obstructive pulmonary disease. 8. Essential hypertension. 9. Hyperlipidemia. 10.Primary osteoarthritis in multiple joints. 11.Persistent atrial fibrillation. 12.Chronic kidney disease, stage IIIB, from hypertensive nephrosclerosis. 13.Troponin leak from congestive heart failure, not acute syndrome. PLAN: Maintain the patient on Bumex drip. Left-sided chest ultrasound was reviewed with thoracentesis. Patient really does feel weak and tired. Will increase the dose of Diamox. MMODL / IJN: [id number] /
[2017-08-24] MEDS: ATORVASTATIN 20 MG TAB PO SCH (20:58)
[2017-08-24] MEDS: guaiFENesin-DM 600/30MG 1 EACH TAB.ER.12H PO SCH (20:58)
[2017-08-24] MEDS: BUMETANIDE 12 MG in DEXTROSE 5% IN WATER 192 ML IV SCH ×2 (21:01)
[2017-08-25 06:29] LABS: Anisocytosis Slight; Basophils % (A) 0 %; Hypochromasia Marked; Macrocytosis Moderate; Monocytes # (A) 0.7 k/uL (0-1.0); Poikilocytosis Slight
[2017-08-25 06:38] LABS: Calcium 8.8 mg/dL (8.4-10.2); Potassium 4.4 mmol/L (3.5-5.1)
[2017-08-25 06:48] LABS: Eosinophils # (A) 0.1 k/uL (0-0.7); Eosinophils % (A) 1 %; HCT 28.1 % (39.0-53.0); HGB 8.4 gm/dL (13.0-17.5); Lymphocytes # (A) 0.4 k/uL (1.0-4.8); Lymphocytes % (A) 6 %; MCHC 29.8 g/dL (31.0-37.0); MCV 100.8 fL (80.0-100.0); Mean Platelet Volume 10.2; Monocytes % (A) 10 %; Neutrophils # (A) 5.4 k/uL (1.3-7.7); Neutrophils % (A) 80 %; Platelet Count 191 k/uL (150-450); RBC 2.79 m/uL (4.30-5.90); RDW 17.8 % (11.5-15.5); WBC 6.8 k/uL (3.8-10.6)
[2017-08-25] MEDS: CARVEDILOL 3.125 MG TAB PO SCH ×2 (07:27→17:11)
[2017-08-25] MEDS: CALCIUM ACETATE 667 MG CAP PO SCH ×3 (07:27→17:11)
[2017-08-25] MEDS: ASCORBIC ACID 500 MG TAB PO SCH ×3 (08:08→21:09)
[2017-08-25] MEDS: guaiFENesin-DM 600/30MG 1 EACH TAB.ER.12H PO SCH ×2 (08:08→21:08)
[2017-08-25] MEDS: FERROUS SULFATE 325 MG TAB PO SCH ×2 (08:08→21:08)
[2017-08-25] MEDS: acetaZOLAMIDE 250 MG TAB PO SCH ×2 (08:09→21:08)
[2017-08-25] MEDS: POLYETHYLENE GLYCOL 3350 17 GM POWD.PACK PO SCH (08:09)
[2017-08-25] MEDS: ASPIRIN 81 MG PO SCH (08:09)
[2017-08-25] MEDS: FOLIC ACID 1 MG TAB PO SCH (12:13)
[2017-08-25 14:32] VITALS: BMI 27.6
--- NOTE | 2017-08-25 14:36 | P.PN ---
Subjective Progress Note Date: 08/25/17 Principal diagnosis: Acute exacerbation of systolic congestive heart failure. This is an 82-year-old male patient was hospitalized because of worsening shortness of breath. The patient is currently being treated for an acute decompensation of congestion heart failure. The patient was initially placed on IV Lasix and based on some suboptimal response the patient was placed on a Bumex drip. He is producing adequate amount of urine output. His lower extremities edema is improving. His chest x-ray shows organomegaly and small bilateral pleural effusions. The patient has multiple medical problems and comorbidities. He is currently free of any angina. His undergone previous bypass surgery for coronary artery disease. He has chronic renal failure. He also has chronic atrial fibrillation and he has been on no antiplatelet coagulation based on previous history of GI bleed. He is known to have also COPD and hypertension and chronic dyspnea. Note that on admission, his proBNP level was 38,000. His creatinine was at 1.9. He is afebrile. He is pulse oxing on the Naprosyn 2 L of oxygen by nasal cannula. HEENT denies having any specific complaints on today's evaluation. He is responding nicely to diuretics and the patient's creatinine is down to 1.6. His echocardiogram from this current admission shows an ejection fraction of 35-40% along with segmental wall motion abnormalities as the anterior wall is hypokinetic and there is also to hypokinesia. There is no evidence also right-sided failure knowing that the patient's right ventricular size and structures enlarged and dilated so is the right atrium. So in the left atrium and there is moderate to severe degree of mitral regurgitation and severe tricuspid regurgitation along with a pulmonary artery pressure of 88 mmHg. As such this patient has biventricular failure in addition to underlying coronary artery disease and valvular heart disease with moderate severe mitral regurgitation. On 08/23/2017 I'm seeing this patient for a follow-up. I discussed the case with cardiology. As mentioned earlier the patient was hospitalized for an acute CHF and the respiratory failure. The patient was not responding nicely to diuretics it was offered. He was offered initially Lasix and following that he was switched to a Bumex drip. He continued to have large bilateral pleural effusion on subsequent chest x-rays. Based on that, I performed a thoracentesis of the right lung today and this was done at the bedside without any complications and the total amount of 1.6 L of pleural fluid was aspirated from the right lung. The fluid was light yellow in color. No complications. The patient felt better following the procedure. We are continuing to diuretics and may consider performing a thoracentesis on the left at a later stage. Would optimize the fluid balance. We'll continue to follow this patient with cardiology. The patient is seen again today 08/24/2017 in follow-up on the selective care unit. He is currently sitting up in a chair at the bedside. He is awake and alert in no acute distress. He is status post right-sided thoracentesis of 1.6 L of suspected transitive fluid removed. He is breathing easier today as compared to yesterday. Maintaining good O2 saturations in the 90s on room air. His been afebrile. Hemodynamically stable. White count 6.2. Hemoglobin 8.9 status post 1 unit packed red blood cells. BUN 85, creatinine 2.10. The patient is seen again today 08/25/2017 in follow-up on the selective care unit. He is currently resting quite comfortably in bed. He is awake and alert in no acute distress. Pleural fluid from previous thoracentesis of the right revealed no malignancy. Ultrasound of the left reveals a 5.5 cm pleural effusion. He is breathing easier today as compared to yesterday. Maintaining good O2 saturations in the 90s on room air. He's been afebrile. Hemodynamically stable. White count 6.8. Hemoglobin 8.4. Creatinine 2.17. He remains on a Bumex drip at 0.5 mg per hour. Objective - Vital Signs Vital signs: Vital Signs Temp 97.0 F L 08/25/17 11:51 Pulse 76 08/25/17 11:51 Resp 18 08/25/17 11:51 BP 122/76 08/25/17 11:51 Pulse Ox 98 08/25/17 11:51 Intake & Output 08/24/17 08/25/17 08/25/17 18:59 06:59 18:59 Intake Total 240 240 480 Output Total 200 Balance 240 240 280 Weight 77.7 kg Intake: Intake, IV Titration 240 Amount Bumetanide 12 mg In 240 Dextrose 5% in Water 192 ml @ 0.5 MG/HR 10 mls/hr IV .Q24H [facility] Rx#: [id number] Oral 240 480 Output: Urine 200 Other: Voiding Method Diaper Diaper Diaper # Voids 2 3 - Exam Gen. appearance the patient is calm comfortable no acute distress. He is awake and alert and sitting up on a chair.Head exam was generally normal. There was no scleral icterus or corneal arcus. Mucous membranes were moist.Neck was supple and without jugular venous distension, thyromegaly, or carotid bruits. Carotids were easily palpable bilaterally. There was no adenopathy. The patient has bilateral jugular venous distention and scars of previous endarterectomy in the neck. Lungs are diminished in lung bases bilaterally some and there is also dullness to percussion related to underlying pleural effusion. No labored breathing. The dullness in the right side improved following the thoracentesis. No use of accessory muscles of breathing.Abdominal exam revealed normal bowel sounds. The abdomen was soft, non -tender, and without masses, organomegaly, or appreciable enlargement of the abdominal aorta. Extremities reveal +1-2 pitting edema bilaterally reaching the knees. No cyanosis or clubbing.Examination of the skin revealed no evidence of significant rashes, suspicious appearing nevi or other concerning lesions. Neurologically the patient awake and alert and there is no focal neurological deficit. Psychiatric to the patient has normal mood and affect. - Labs CBC & Chem 7: 08/25/17 05:57 08/25/17 05:57 Labs: Abnormal Lab Results - Last 24 Hours (Table) 08/25/17 08/25/17 Range/Units 05:57 05:57 RBC 2.79 L (4.30-5.90) m/uL Hgb 8.4 L (13.0-17.5) gm/dL Hct 28.1 L (39.0-53.0) % MCV 100.8 H (80.0-100.0) fL MCHC 29.8 L (31.0-37.0) g/dL RDW 17.8 H (11.5-15.5) % Lymphocytes # 0.4 L (1.0-4.8) k/uL Chloride 92 L (98-107) mmol/L Carbon Dioxide 32 H (22-30) mmol/L BUN 89 H* (9-20) mg/dL Creatinine 2.17 H (0.66-1.25) mg/dL Glucose 102 H (74-99) mg/dL Assessment and Plan Assessment: Assessment 1 acute hypoxic respiratory failure secondary to acute decompensated biventricular heart failure, systolic in nature with obvious signs of fluid overload. Remains on a Bumex drip at 0.5 mg per hour. 2 bilateral pleural effusion secondary to above. Status post right-sided thoracentesis with 1.6 L removed. Negative for malignancy. Left pleural effusion measures 5.5 cm. 3 bilateral lower extremity edema secondary to above, improved. 4 coronary artery disease with decreased bypass surgery 5 CHF systolic failure, chronic with an ejection fraction of 30-35%. 6 valvular heart disease with moderate to severe mitral regurgitation and severe tricuspid regurgitation with severe pulmonary hypertension 7 right-sided heart failure secondary to above, PA pressures in the severe range , 88 mmHg 8 chronic renal failure with stage III kidney disease 9 chronic atrial fibrillation rate controlled on no anticoagulants for now 10 COPD 11 hypertension 12 hyperlipidemia 13 degenerative arthritis 14 carotid artery disease with bilateral endarterectomy 15 endovascular stent involving the lower arteries for renal artery stenosis 16 chronic anemia, multifactorial 17 positive troponin leak secondary to above, nonspecific, not related to an acute cardiac event or coronary event. Plan: The patient was seen and evaluated by Dr. Parsons. Ultrasound of the left chest reveals a 5.5 cm effusion. We will continue to diurese the patient. Hold warfarin. Repeat chest x-ray in a.m. Status post right-sided thoracentesis. Negative for malignancy. His edema is improving. We'll continue with his current medications. We'll increase his activity as tolerated. We will continue to follow. I, the cosigning physician, performed a history & physical examination of the patient. Lungs sounds have crackles in posterior bases more so on the left. Maintaining good O2 saturations in the 90s on room air. I discussed the assessment and plan of care with my nurse practitioner, Chrissy Snow. I attest to the above note as dictated by her.
--- NOTE | 2017-08-25 15:25 | P.PN ---
Subjective Progress Note Date: 08/25/17 Principal diagnosis: CHF This is an 82-year-old gentleman with history of coronary artery disease and prior bypass surgery, hyperlipidemia, renal insufficiency, chronic persistent atrial fibrillation, not on anticoagulation because of history of GI bleed Congestive heart failure, COPD, hypertension, who presented to the hospital with symptoms of progressively worsening shortness of breath. He was seen in consultation yesterday by Dr. Nunez and initiated on IV Lasix, he did diurese well through the night. Creatinine today is down to 1.9. I did have a lengthy discussion today with the daughter regarding anticoagulation. Patient had been on anticoagulation in the past and is no longer on it because of GI bleeding. We explained to the patient as risk of stroke not being on anticoagulation and we also explained that we will put the patient on a baby aspirin daily. He was sitting up in the chair today at the time of my examination, states he is feeling somewhat better but still short of breath. Continues to have mild peripheral edema. Blood pressure 124/72, heart rate in the 80s, temperature 97.2, 100% on 2 L of oxygen. White blood cell count 5.0, hemoglobin 9.5, platelet count 197. Sodium 142, potassium 4.1, BUN 76, creatinine 1.9. His BNP level on admission was 38,900. 08/21/2017 Patient was seen and examined this morning, diuresing on IV Lasix. His weight is down 1 kg today. Chest x-ray was repeated today which revealed no change in pleural effusions. Ejection fraction by echocardiogram showed an EF of 35-40%. Moderate to severe MR, severe TR, severe pulmonary hypertension. Blood pressure 138/60 with a heart rate in the 70s to 80s. 99% on 2 L of oxygen. Sodium 142, potassium 3.9, BUN 74, creatinine 1.8. 08/22/2017 Seen and examined this morning, sitting up in the chair at bedside, edema improving significantly. Breathing also improving. Good urine output, weight is down today, creatinine 1.6. We will continue with the IV Bumex, repeat chest x-ray tomorrow morning. 08/24/2017 Patient seen and examined this morning, sitting up in the chair at bedside. He did undergo a right-sided thoracentesis, 1.6 L of total fluid removed. Chest x- ray performed post thoracentesis revealed continued moderate left and small right effusions with adjacent atelectasis and/or consolidation. Blood pressure 106/50 with a heart rate in the 90s. White blood cell count 6.2, hemoglobin 8.9 , platelet count 205. Sodium 139, potassium 4.4, BUN 85, creatinine 2.1. 08/25/2017 Patient seen and examined this morning, underwent an ultrasound of the left chest which revealed a 5.5 cm left pleural effusion. The fluid which was removed on the right side revealed no malignancy. Overall patient is breathing much easier. Hemodynamically stable. Continues to be on a Bumex drip at 0.5 mg per hour. Objective - Vital Signs Vital signs: Vital Signs Temp 97.0 F L 08/25/17 11:51 Pulse 76 08/25/17 11:51 Resp 18 08/25/17 11:51 BP 122/76 08/25/17 11:51 Pulse Ox 98 08/25/17 11:51 Intake & Output 08/24/17 08/25/17 08/25/17 18:59 06:59 18:59 Intake Total 240 240 480 Output Total 200 Balance 240 240 280 Weight 77.7 kg 77.7 kg Intake: Intake, IV Titration 240 Amount Bumetanide 12 mg In 240 Dextrose 5% in Water 192 ml @ 0.5 MG/HR 10 mls/hr IV [facility] Rx#: [id number] Oral 240 480 Output: Urine 200 Other: Voiding Method Diaper Diaper Diaper # Voids 2 3 - Exam PHYSICAL EXAMINATION: HEENT: Head is atraumatic, normocephalic. Pupils equal, round. Neck is supple. There is elevated jugular venous pressure. HEART EXAMINATION: Heart S1 and S2 irregularly irregular a systolic ejection murmur is heard. CHEST EXAMINATION: Lungs reveal rales bilaterally with improvement in air entry to right posterior base . ABDOMEN: Soft, nontender. Bowel sounds are heard. No organomegaly noted. EXTREMITIES: 2+ peripheral pulses with 1+ evidence of peripheral edema, bilateral Cordell wraps in place . NEUROLOGIC patient is awake, alert and oriented -3. . - Labs CBC & Chem 7: 08/25/17 05:57 08/25/17 05:57 Labs: Abnormal Lab Results - Last 24 Hours (Table) 08/25/17 08/25/17 Range/Units 05:57 05:57 RBC 2.79 L (4.30-5.90) m/uL Hgb 8.4 L (13.0-17.5) gm/dL Hct 28.1 L (39.0-53.0) % MCV 100.8 H (80.0-100.0) fL MCHC 29.8 L (31.0-37.0) g/dL RDW 17.8 H (11.5-15.5) % Lymphocytes # 0.4 L (1.0-4.8) k/uL Chloride 92 L (98-107) mmol/L Carbon Dioxide 32 H (22-30) mmol/L BUN 89 H* (9-20) mg/dL Creatinine 2.17 H (0.66-1.25) mg/dL Glucose 102 H (74-99) mg/dL Assessment and Plan Plan: Assessment and plan #1 congestive heart failure, systolic acute on chronic #2 known history of coronary artery disease with prior bypass surgery #3 history of valve replacement #4 COPD #5 hypertension #6 hyperlipidemia #7 chronic persistent atrial fibrillation, not on anticoagulation because of history of prior GI bleed #8 chronic kidney disease #9 abnormal troponin, not consistent with acute coronary syndrome, likely secondary to abnormal renal function. Plan Patient will be continued on the Bumex drip, Coumadin has been placed on hold, chest x-ray will be repeated in the morning, depending on that further decisions will be made by pulmonary regarding a thoracentesis of the left. At this time we will continue current medications. DNP note has been reviewed, I agree with a documented findings and plan of care. Patient was seen and examined.
[2017-08-25] MEDS: ATORVASTATIN 20 MG TAB PO SCH (21:08)
--- NOTE | 2017-08-25 21:11 | PN ---
PROGRESS NOTE DATE OF SERVICE: 08/25/2017 PRESENTING COMPLAINT: Short of breath. INTERVAL HISTORY: This patient presented with CHF exacerbation, has been on Bumex drip. Strict I&O cannot be maintained because of incontinence. Patient feels rather tired today. Does not feel like eating much. Patient is status post right-sided thoracentesis. REVIEW OF SYSTEMS: Done for constitutional, cardiovascular, GI, pulmonary; relevant findings as above. CURRENT MEDICATIONS: Current medications include Bumex drip, Diamox. PHYSICAL EXAMINATION: Temperature 97, pulse 76, respiration 18, blood pressure 122/76, pulse ox 98% on room air. GENERAL APPEARANCE: Propped up in bed. Very tired-appearing. EYES: Pupils equal. Conjunctivae normal. HEENT: External appearance of nose and ears normal. Oral cavity normal. NECK: JVD possibly raised. Mass not palpable. RESPIRATORY: Effort increased. LUNGS: Decreased breath sounds. CARDIOVASCULAR: First and second sounds normal. Significant edema is present. ABDOMEN: Soft, nontender. Liver and spleen not palpable. Significant edema in the scrotal area. PSYCHIATRY: Alert and orient x3. Mood and affect appear rather low. INVESTIGATIONS: White count 6.8, hemoglobin 8.4, potassium 4.4, bicarb 32, BUN 89, creatinine 2.17. UA noted. ASSESSMENT: 1. Acute on chronic congestive heart failure from systolic dysfunction and diastolic dysfunction, ejection fraction 30% to 35%, slow to respond. Patient remains on a Bumex drip. 2. Bilateral pleural effusion, status post right-sided thoracentesis, significant on the left side. 3. Hypertensive heart disease. 4. Moderate to severe mitral regurgitation and severe tricuspid regurgitation, non- rheumatic. 5. 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 6. Coronary artery disease with prior history of coronary artery bypass. 7. Chronic obstructive pulmonary disease. 8. Essential hypertension. 9. Hyperlipidemia. 10.Primary osteoarthritis in multiple joints. 11.Persistent atrial fibrillation. 12.Chronic kidney disease, stage IIIB, from hypertensive nephrosclerosis. 13.Troponin leak from congestive heart failure. 14.Coumadin monitoring. PLAN: Continue patient on the current Bumex drip. Prognosis is guarded. Will add thiazide 25 mg twice a day to see if that helps with diuresis, though patient's edema is slowly coming down. MMODL / IJN: [id number] /
[2017-08-25] MEDS: BUMETANIDE 12 MG in DEXTROSE 5% IN WATER 192 ML IV SCH ×2 (21:17)
[2017-08-25] MEDS: HYDROCHLOROTHIAZIDE 25 MG TAB PO SCH (22:15)
[2017-08-26 05:50] LABS: Anisocytosis Slight; Basophils % (A) 1 %; Eosinophils # (A) 0.1 k/uL (0-0.7); Eosinophils % (A) 2 %; HGB 7.9 gm/dL (13.0-17.5); Hypochromasia Marked; Lymphocytes # (A) 0.3 k/uL (1.0-4.8); Lymphocytes % (A) 6 %; MCH 30.4 pg (25.0-35.0); MCHC 30.4 g/dL (31.0-37.0); MCV 99.9 fL (80.0-100.0); Macrocytosis Slight; Mean Platelet Volume 9.2; Monocytes # (A) 0.4 k/uL (0-1.0); Monocytes % (A) 10 %; Neutrophils # (A) 3.6 k/uL (1.3-7.7); Neutrophils % (A) 78 %; Platelet Count 177 k/uL (150-450); Poikilocytosis Slight; RDW 18.3 % (11.5-15.5); WBC 4.6 k/uL (3.8-10.6)
[2017-08-26 06:13] LABS: Calcium 8.9 mg/dL (8.4-10.2); Potassium 3.8 mmol/L (3.5-5.1)
--- NOTE | 2017-08-26 07:35 | XR ---
EXAMINATION TYPE: XR chest 2V DATE OF EXAM: 08/26/2017 COMPARISON: 08/23/2017 INDICATION: Left pleural effusion TECHNIQUE: Frontal and lateral views of the chest are obtained. FINDINGS: The heart size is normal. The pulmonary vasculature is normal. There is a small left pleural effusion. This is diminished over the interval. The right basilar infil trate has largely resolved. Small effusion on the right is not excluded.. IMPRESSION: 1. Diminished small left pleural effusion. 2. Improving right lower lobe infiltrate. Small right pleural effusion may remain present.
[2017-08-26] MEDS: CALCIUM ACETATE 667 MG CAP PO SCH ×3 (07:36→16:46)
[2017-08-26] MEDS: CARVEDILOL 3.125 MG TAB PO SCH ×2 (07:36→16:46)
[2017-08-26] MEDS ORDERED: BUMETANIDE 1 MG TAB PO SCH (09:00)
[2017-08-26] MEDS: guaiFENesin-DM 600/30MG 1 EACH TAB.ER.12H PO SCH ×2 (09:11→20:29)
[2017-08-26] MEDS: FERROUS SULFATE 325 MG TAB PO SCH ×2 (09:11→20:29)
[2017-08-26] MEDS: ASCORBIC ACID 500 MG TAB PO SCH ×3 (09:11→20:29)
[2017-08-26] MEDS: POLYETHYLENE GLYCOL 3350 17 GM POWD.PACK PO SCH (09:12)
[2017-08-26] MEDS: HYDROCHLOROTHIAZIDE 25 MG TAB PO SCH ×2 (09:12→20:29)
[2017-08-26] MEDS: ASPIRIN 81 MG PO SCH (09:12)
[2017-08-26] MEDS: acetaZOLAMIDE 250 MG TAB PO SCH ×2 (09:12→20:29)
--- NOTE | 2017-08-26 10:56 | P.PN ---
Subjective Progress Note Date: 08/26/17 Principal diagnosis: CHF This is an 82-year-old gentleman with history of coronary artery disease and prior bypass surgery, hyperlipidemia, renal insufficiency, chronic persistent atrial fibrillation, not on anticoagulation because of history of GI bleed Congestive heart failure, COPD, hypertension, who presented to the hospital with symptoms of progressively worsening shortness of breath. He was seen in consultation yesterday by Dr. Nunez and initiated on IV Lasix, he did diurese well through the night. Creatinine today is down to 1.9. I did have a lengthy discussion today with the daughter regarding anticoagulation. Patient had been on anticoagulation in the past and is no longer on it because of GI bleeding. We explained to the patient as risk of stroke not being on anticoagulation and we also explained that we will put the patient on a baby aspirin daily. He was sitting up in the chair today at the time of my examination, states he is feeling somewhat better but still short of breath. Continues to have mild peripheral edema. Blood pressure 124/72, heart rate in the 80s, temperature 97.2, 100% on 2 L of oxygen. White blood cell count 5.0, hemoglobin 9.5, platelet count 197. Sodium 142, potassium 4.1, BUN 76, creatinine 1.9. His BNP level on admission was 38,900. 08/21/2017 Patient was seen and examined this morning, diuresing on IV Lasix. His weight is down 1 kg today. Chest x-ray was repeated today which revealed no change in pleural effusions. Ejection fraction by echocardiogram showed an EF of 35-40%. Moderate to severe MR, severe TR, severe pulmonary hypertension. Blood pressure 138/60 with a heart rate in the 70s to 80s. 99% on 2 L of oxygen. Sodium 142, potassium 3.9, BUN 74, creatinine 1.8. 08/22/2017 Seen and examined this morning, sitting up in the chair at bedside, edema improving significantly. Breathing also improving. Good urine output, weight is down today, creatinine 1.6. We will continue with the IV Bumex, repeat chest x-ray tomorrow morning. 08/24/2017 Patient seen and examined this morning, sitting up in the chair at bedside. He did undergo a right-sided thoracentesis, 1.6 L of total fluid removed. Chest x- ray performed post thoracentesis revealed continued moderate left and small right effusions with adjacent atelectasis and/or consolidation. Blood pressure 106/50 with a heart rate in the 90s. White blood cell count 6.2, hemoglobin 8.9 , platelet count 205. Sodium 139, potassium 4.4, BUN 85, creatinine 2.1. 08/25/2017 Patient seen and examined this morning, underwent an ultrasound of the left chest which revealed a 5.5 cm left pleural effusion. The fluid which was removed on the right side revealed no malignancy. Overall patient is breathing much easier. Hemodynamically stable. Continues to be on a Bumex drip at 0.5 mg per hour. 08/26/2017 Patient seen and examined this morning, sitting up in the chair at bedside. Feeling significantly better, air entry bilaterally significantly improved today. Repeat chest x-ray of today reveals diminished small left pleural effusion with improving right lower lobe infiltrate. Blood pressure 124/78 with a heart rate in the 70s, 95% on 2 L of oxygen. Hemoglobin 7.9, platelet count 177. Sodium 136, potassium 3.8, BUN 97, creatinine 2.0. Objective - Vital Signs Vital signs: Vital Signs Temp 96.8 F L 08/26/17 03:36 Pulse 64 08/26/17 03:39 Resp 20 08/26/17 03:39 BP 126/61 08/26/17 03:36 Pulse Ox 97 08/26/17 03:36 Intake & Output 08/25/17 08/26/17 08/26/17 18:59 06:59 18:59 Intake Total 580 240 120 Output Total 200 850 300 Balance 380 -610 -180 Weight 77.7 kg 80.2 kg Intake: Intake, IV Titration 240 Amount Bumetanide 12 mg In 240 Dextrose 5% in Water 192 ml @ 0.5 MG/HR 10 mls/hr IV .Q24H [facility] Rx#: [id number] Oral 580 120 Output: Urine 200 850 300 Other: Voiding Method Diaper Urinal Diaper # Voids 3 1 - Exam PHYSICAL EXAMINATION: HEENT: Head is atraumatic, normocephalic. Pupils equal, round. Neck is supple. There is elevated jugular venous pressure. HEART EXAMINATION: Heart S1 and S2 irregularly irregular a systolic ejection murmur is heard. CHEST EXAMINATION: Lungs reveal improvement in air entry bilaterally, fine rales audible to the right posterior base ABDOMEN: Soft, nontender. Bowel sounds are heard. No organomegaly noted. EXTREMITIES: 2+ peripheral pulses with trace evidence of peripheral edema, bilateral Cordell wraps in place . NEUROLOGIC patient is awake, alert and oriented -3. . - Labs CBC & Chem 7: 08/26/17 05:18 08/26/17 05:18 Labs: Abnormal Lab Results - Last 24 Hours (Table) 08/26/17 08/26/17 Range/Units 05:18 05:18 RBC 2.60 L (4.30-5.90) m/uL Hgb 7.9 L (13.0-17.5) gm/dL Hct 26.0 L (39.0-53.0) % MCHC 30.4 L (31.0-37.0) g/dL RDW 18.3 H (11.5-15.5) % Lymphocytes # 0.3 L (1.0-4.8) k/uL Sodium 136 L (137-145) mmol/L Chloride 95 L (98-107) mmol/L BUN 97 H* (9-20) mg/dL Creatinine 2.00 H (0.66-1.25) mg/dL Assessment and Plan Plan: Assessment and plan #1 congestive heart failure, systolic acute on chronic #2 known history of coronary artery disease with prior bypass surgery #3 history of valve replacement #4 COPD #5 hypertension #6 hyperlipidemia #7 chronic persistent atrial fibrillation, not on anticoagulation because of history of prior GI bleed #8 chronic kidney disease #9 abnormal troponin, not consistent with acute coronary syndrome, likely secondary to abnormal renal function. Plan From cardiology's perspective, we will recommend physical therapy consultation to increase activity and the patient. We also would recommend to discontinue the IV Bumex and reinitiate oral anticoagulation. DNP note has been reviewed, I agree with a documented findings and plan of care. Patient was seen and examined.
[2017-08-26] MEDS: FOLIC ACID 1 MG TAB PO SCH (11:46)
[2017-08-26] MEDS: cefTRIAXone IN SWFI 1,000 MG/10 ML SYRINGE IVP SCH (11:46)
--- NOTE | 2017-08-26 13:41 | P.PN ---
Subjective Progress Note Date: 08/26/17 Principal diagnosis: Acute exacerbation of systolic congestive heart failure. This is an 82-year-old male patient was hospitalized because of worsening shortness of breath. The patient is currently being treated for an acute decompensation of congestion heart failure. The patient was initially placed on IV Lasix and based on some suboptimal response the patient was placed on a Bumex drip. He is producing adequate amount of urine output. His lower extremities edema is improving. His chest x-ray shows organomegaly and small bilateral pleural effusions. The patient has multiple medical problems and comorbidities. He is currently free of any angina. His undergone previous bypass surgery for coronary artery disease. He has chronic renal failure. He also has chronic atrial fibrillation and he has been on no antiplatelet coagulation based on previous history of GI bleed. He is known to have also COPD and hypertension and chronic dyspnea. Note that on admission, his proBNP level was 38,000. His creatinine was at 1.9. He is afebrile. He is pulse oxing on the Naprosyn 2 L of oxygen by nasal cannula. HEENT denies having any specific complaints on today's evaluation. He is responding nicely to diuretics and the patient's creatinine is down to 1.6. His echocardiogram from this current admission shows an ejection fraction of 35-40% along with segmental wall motion abnormalities as the anterior wall is hypokinetic and there is also to hypokinesia. There is no evidence also right-sided failure knowing that the patient's right ventricular size and structures enlarged and dilated so is the right atrium. So in the left atrium and there is moderate to severe degree of mitral regurgitation and severe tricuspid regurgitation along with a pulmonary artery pressure of 88 mmHg. As such this patient has biventricular failure in addition to underlying coronary artery disease and valvular heart disease with moderate severe mitral regurgitation. On 08/23/2017 I'm seeing this patient for a follow-up. I discussed the case with cardiology. As mentioned earlier the patient was hospitalized for an acute CHF and the respiratory failure. The patient was not responding nicely to diuretics it was offered. He was offered initially Lasix and following that he was switched to a Bumex drip. He continued to have large bilateral pleural effusion on subsequent chest x-rays. Based on that, I performed a thoracentesis of the right lung today and this was done at the bedside without any complications and the total amount of 1.6 L of pleural fluid was aspirated from the right lung. The fluid was light yellow in color. No complications. The patient felt better following the procedure. We are continuing to diuretics and may consider performing a thoracentesis on the left at a later stage. Would optimize the fluid balance. We'll continue to follow this patient with cardiology. The patient is seen again today 08/24/2017 in follow-up on the selective care unit. He is currently sitting up in a chair at the bedside. He is awake and alert in no acute distress. He is status post right-sided thoracentesis of 1.6 L of suspected transitive fluid removed. He is breathing easier today as compared to yesterday. Maintaining good O2 saturations in the 90s on room air. His been afebrile. Hemodynamically stable. White count 6.2. Hemoglobin 8.9 status post 1 unit packed red blood cells. BUN 85, creatinine 2.10. The patient is seen again today 08/25/2017 in follow-up on the selective care unit. He is currently resting quite comfortably in bed. He is awake and alert in no acute distress. Pleural fluid from previous thoracentesis of the right revealed no malignancy. Ultrasound of the left reveals a 5.5 cm pleural effusion. He is breathing easier today as compared to yesterday. Maintaining good O2 saturations in the 90s on room air. He's been afebrile. Hemodynamically stable. White count 6.8. Hemoglobin 8.4. Creatinine 2.17. He remains on a Bumex drip at 0.5 mg per hour. The patient is seen again today 08/26/2017 in follow-up on the selective care unit. He is awake and alert in no acute distress. He states he is breathing easier today as compared to yesterday. His chest x-ray shows diminished small left pleural effusion and improving right lower lobe infiltrate there is only a small right pleural effusion present. His Bumex drip has been discontinued. He remains on Bumex 3 mg twice a day. He is maintaining good O2 saturations in the mid 90s on 2 L/m per nasal cannula. He is afebrile. Hemodynamically stable. Objective - Vital Signs Vital signs: Vital Signs Temp 97.1 F L 08/26/17 08:00 Pulse 73 08/26/17 08:00 Resp 16 08/26/17 08:00 BP 125/78 08/26/17 08:00 Pulse Ox 95 08/26/17 08:00 Intake & Output 08/25/17 08/26/17 08/26/17 18:59 06:59 18:59 Intake Total 580 240 300 Output Total 200 850 300 Balance 380 -610 0 Weight 77.7 kg 80.2 kg Intake: Intake, IV Titration 240 Amount Bumetanide 12 mg In 240 Dextrose 5% in Water 192 ml @ 0.5 MG/HR 10 mls/hr IV .Q24H [facility] Rx#: [id number] Oral 580 300 Output: Urine 200 850 300 Other: Voiding Method Diaper Urinal Urinal Diaper Diaper # Voids 3 1 - Exam Gen. appearance the patient is calm comfortable no acute distress. He is awake and alert and sitting up on a chair. Head exam was generally normal. There was no scleral icterus or corneal arcus. Mucous membranes were moist.Neck was supple and without jugular venous distension, thyromegaly, or carotid bruits. Carotids were easily palpable bilaterally. There was no adenopathy. The patient has bilateral jugular venous distention and scars of previous endarterectomy in the neck. Lungs are diminished in lung bases bilaterally with some faint crackles. No labored breathing. The dullness in the right side improved following the thoracentesis. No use of accessory muscles of breathing.Abdominal exam revealed normal bowel sounds. The abdomen was soft, non -tender, and without masses, organomegaly, or appreciable enlargement of the abdominal aorta. Extremities reveal +1 pitting edema bilaterally reaching the knees. No cyanosis or clubbing.Examination of the skin revealed no evidence of significant rashes, suspicious appearing nevi or other concerning lesions. Neurologically the patient awake and alert and there is no focal neurological deficit. Psychiatric to the patient has normal mood and affect. - Labs CBC & Chem 7: 08/26/17 05:18 08/26/17 05:18 Labs: Abnormal Lab Results - Last 24 Hours (Table) 08/26/17 08/26/17 Range/Units :18 05:18 RBC 2.60 L (4.30-5.90) m/uL Hgb 7.9 L (13.0-17.5) gm/dL Hct 26.0 L (39.0-53.0) % MCHC 30.4 L (31.0-37.0) g/dL RDW 18.3 H (11.5-15.5) % Lymphocytes # 0.3 L (1.0-4.8) k/uL Sodium 136 L (137-145) mmol/L Chloride 95 L (98-107) mmol/L BUN 97 H* (9-20) mg/dL Creatinine 2.00 H (0.66-1.25) mg/dL Assessment and Plan Assessment: Assessment 1 acute hypoxic respiratory failure secondary to acute decompensated biventricular heart failure, systolic in nature with obvious signs of fluid overload. Bumex drip discontinued. Currently on Bumex 3 mg twice a day. 2 bilateral pleural effusion secondary to above. Status post right-sided thoracentesis with 1.6 L removed. Negative for malignancy. Today's chest x- ray reveals improved pleural effusions no plans for thoracentesis on the left 3 bilateral lower extremity edema secondary to above, improved. 4 coronary artery disease with decreased bypass surgery 5 CHF systolic failure, chronic with an ejection fraction of 30-35%. 6 valvular heart disease with moderate to severe mitral regurgitation and severe tricuspid regurgitation with severe pulmonary hypertension 7 right-sided heart failure secondary to above, PA pressures in the severe range , 88 mmHg 8 chronic renal failure with stage III kidney disease 9 chronic atrial fibrillation rate controlled on no anticoagulants for now 10 COPD 11 hypertension 12 hyperlipidemia 13 degenerative arthritis 14 carotid artery disease with bilateral endarterectomy 15 endovascular stent involving the lower arteries for renal artery stenosis 16 chronic anemia, multifactorial 17 positive troponin leak secondary to above, nonspecific, not related to an acute cardiac event or coronary event. Plan: The patient was seen and evaluated by Dr. Parsons. Chest x-ray and labs reviewed. The patient's left-sided pleural effusion has improved. No plans for thoracentesis at this time. Status post right-sided thoracentesis. Negative for malignancy. His edema is improving. We'll continue with his current medications. We'll increase his activity as tolerated. We will continue to follow. I, the cosigning physician, performed a history & physical examination of the patient. Lungs sounds have crackles in posterior bases. Maintaining good O2 saturations in the 90s on 2 L/m per nasal cannula. I discussed the assessment and plan of care with my nurse practitioner, Chrissy Snow. I attest to the above note as dictated by her.
[2017-08-26] MEDS ORDERED: DARBEPOETIN ALFA 40 MCG/0.4 ML SYRINGE SQ SCH (15:00)
--- NOTE | 2017-08-26 16:21 | PN ---
PROGRESS NOTE DATE OF SERVICE: 08/26/2017. PRESENTING COMPLAINT: Short of breath. INTERVAL HISTORY: Patient presented with CHF exacerbation. He remains on Bumex. Edema is slowly coming down. Continues to feel tired. Oral intake is a bit low. The patient's chest x-ray is actually looking better. Patient is tired. REVIEW OF SYSTEMS: Done for constitutional, cardiovascular, GI, pulmonary; relevant findings as above. CURRENT MEDICATIONS: Reviewed. They include: 1. Oral Bumex. 2. Coreg. 3. Zaroxolyn. 4. Diamox. PHYSICAL EXAMINATION: Temperature 97.8, pulse 73, respiration 16, blood pressure 125/78, pulse ox 95% on 2 L. GENERAL APPEARANCE: Sitting up in bed. Tired-appearing. EYES: Pupils equal. Conjunctivae normal. HEENT: External appearance of nose and ears normal. Oral cavity normal. NECK: JVD not raised. Mass not palpable. RESPIRATORY: Effort increased. LUNGS: Decreased breath sounds. CARDIOVASCULAR: First and second sounds normal. Edema is decreased but still present. ABDOMEN: Soft, nontender. Liver and spleen not palpable. Edema in the scrotal area. PSYCHIATRY: Awake. Oriented x3. Mood and affect somewhat low, though answering questions appropriately. INVESTIGATIONS: White count 4.6, hemoglobin 7.9, potassium 3.8, bicarb 27, BUN 97, creatinine 2. ASSESSMENT: 1. Acute on chronic congestive heart failure from systolic dysfunction and diastolic dysfunction, ejection fraction 30% to 35%. Patient has been switched to oral diuretics. 2. Bilateral pleural effusion, status post right thoracentesis. Left-sided effusion is also improved. 3. Hypertensive heart disease. 4. Moderate to severe mitral regurgitation and severe tricuspid regurgitation, non- rheumatic. 5. 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 6. Coronary artery disease with prior history of coronary artery bypass. 7. Chronic obstructive pulmonary disease. 8. Essential hypertension. 9. Hyperlipidemia. 10.Primary osteoarthritis in multiple joints. 11.Persistent atrial fibrillation. 12.Chronic kidney disease, stage IIIB, from hypertensive nephrosclerosis. 13.Troponin leak from congestive heart failure. 14.Coumadin monitoring. 15.Possible urinary tract infection, even though patient does not really have any symptoms, but given his lethargy, that could be a manifestation, though patient has no fever or white count. PLAN: Will give the patient 2 days of IV ceftriaxone and then switch to p.o. antibiotics. The patient will definitely need inpatient rehab. Overall prognosis is guarded. MMODL / IJN: [id number] /
[2017-08-26] MEDS: METOLAZONE 2.5 MG TAB PO SCH (16:46)
[2017-08-26] MEDS: BUMETANIDE 1 MG TAB PO SCH (16:46)
--- NOTE | 2017-08-26 17:21 | CONS ---
CONSULTATION REASON FOR CONSULT: Renal failure. HISTORY OF PRESENT ILLNESS: Patient is an 82-year-old male who was initially admitted to the hospital on 08/18/2017 with shortness of breath. Patient has acute on top of chronic exacerbation of systolic heart failure. He is currently maintained on Bumex drip. Ejection fraction is 35% to 40%. Currently patient is diuresing fairly well. His weight, however, seems to have increased. I am not sure if this is accurate. Udahgu-nude-okwo output was 1050 mL. Serum creatinine has been at about 2 mg/dL. It was at 2.2 on initial admission, went down to 1.6 and now staying at about 2. Review of previous labs shows a serum creatinine about 1.[address] in May and June of 2017. In April it was 2.46. Patient has not been hypotensive recently. However, he did have low blood pressure with systolic in the 90s on 08/23/2017. No IV contrast has been administered. PAST MEDICAL HISTORY: 1. Coronary artery disease and history of atrial fibrillation, not on anticoagulation because of GI bleed. 2. CHF, systolic; EF 30% to 35%. 3. Moderate to severe mitral regurgitation. 4. Severe tricuspid regurgitation. 5. Severe pulmonary hypertension. 6. 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 Baseline creatinine about 2 mg/dL since May of 2017. 7. Osteoarthritis. 8. Hyperlipidemia. 9. History of PA. 10.COPD. PAST SURGICAL HISTORY: 1. Coronary artery bypass surgery. 2. Cardiac catheterization. 3. Cholecystectomy. 4. History of renal artery stenting. 5. Bilateral carotid endarterectomies. SOCIAL HISTORY: Patient is a former smoker. No history of drug abuse or alcohol abuse. HOME MEDICATIONS: 1. PhosLo. 2. Lipitor. 3. Coreg. 4. Folic acid. 5. Vicodin. 6. MiraLAX. 7. Bumex. 8. Vitamin C. ALLERGIES: NONE. REVIEW OF SYSTEMS: As per HPI. Other systems negative. No significant urinary symptoms. No active GI bleed. PHYSICAL EXAMINATION: Patient is comfortable. He is sitting on a bedside chair. He is not in any acute distress. Blood pressure is 126/61, heart rate 64 per minute. Patient is afebrile. EXAMINATION OF THE HEART: S1, S2. EXAMINATION OF LUNGS: Bilateral breath sounds are heard. ABDOMEN: Soft, distended, non-tender. Examination of lower extremities shows edema 2+ bilaterally. [employer] exam is grossly intact. Patient is moving all 4 extremities. LABS: Hemoglobin 7.9 g/dL, sodium 136, potassium 3.8, BUN 97, serum creatinine 2.0. UA shows 1+ protein, WBCs more than 182, hyaline casts 2776. ASSESSMENT: 1. Acute kidney injury, mainly cardiorenal, currently maintained on Bumex drip with stable renal function. His weight has not decreased over the last 2 days. Patient states he is diuresing well; however, 24-hour urine output was only 1050. He will need to continue with the diuretics. I will add Zaroxolyn. The hydrochlorothiazide is not too useful, given his elevated creatinine and GFR of about 27 to 30 mL/minute. 2. Chronic kidney disease, NKF stage IIIB, secondary to nephrosclerosis. UA does have protein. This could be related to his recent CHF exacerbation as well. Previous UA showed no proteinuria in May of this year. 3. Anemia with previous history of gastrointestinal bleed, currently not on any anticoagulation. Will check iron studies and can administer IV iron. I will also start the patient on Aranesp, given his chronic kidney disease. 4. Chronic kidney disease mineral bone disorder, maintained on PhosLo. 5. Cardiomyopathy, ejection fraction 30% to 35%. 6. Acute on top of chronic congestive heart failure, mainly systolic. PLAN: 1. Continue to diurese. It looks like the Bumex has been changed to p.o. I will add oral Zaroxolyn as well. Renal function fairly stable at this time. 2. Possible urinary tract infection, currently maintained on Rocephin. I do not have a urine culture. PLAN: Add Zaroxolyn. Check iron studies. Start Aranesp. Check urine culture; however, this may not be accurate, as patient has already been on antibiotics. Patient will need followup as outpatient for CKD. Thank you for this consultation. We will continue to follow the patient with you during his hospitalization. MMNESTORL / TREVORN: [id number] /
[2017-08-26 19:15] LABS: Iron Saturation 8.43 (15.00-50.00)
[2017-08-26] MEDS: ATORVASTATIN 20 MG TAB PO SCH (20:29)
[2017-08-27] MEDS: CALCIUM ACETATE 667 MG CAP PO SCH ×3 (06:40→17:30)
[2017-08-27] MEDS: CARVEDILOL 3.125 MG TAB PO SCH ×2 (06:41→17:30)
--- NOTE | 2017-08-27 08:17 | P.PN ---
Subjective Patient is seen in follow-up for acute kidney injury on chronic kidney disease. Patient has chronic kidney disease stage III secondary to cardiorenal syndrome with baseline creatinine in the range of 1.62. Creatinine today is 2.0. He is currently maintained on oral Bumex as well as Zaroxolyn. Edema is improving. He is currently having breakfast. Denies chest pain or shortness of breath. No vomiting or diarrhea. Vital signs are stable. General: The patient appeared well nourished and normally developed. HEENT: Head exam is unremarkable. Neck is without jugular venous distension. LUNGS: Lungs are clear to auscultation and percussion. Breath sounds decreased. HEART: Rate and Rhythm are regular. First and second heart sounds normal. No murmurs, rubs or gallops. ABDOMEN: Abdominal exam reveals normal bowel sounds. Non-tender and non- distended. No evidence of peritonitis. EXTREMITITES: 1+ edema. Objective - Vital Signs Vital signs: Vital Signs Temp 96.6 F L 08/26/17 20:00 Pulse 69 08/27/17 04:00 Resp 16 08/27/17 04:00 BP 123/56 08/27/17 04:00 Pulse Ox 95 08/27/17 04:00 Intake & Output 08/26/17 08/27/17 08/27/17 18:59 06:59 18:59 Intake Total 420 0 Output Total 650 600 Balance -230 -600 Weight 80.2 kg 80 kg Intake: Oral 420 0 Output: Urine 650 600 Other: Voiding Method Urinal Urinal Diaper Diaper - Labs CBC & Chem 7: 08/26/17 05:18 08/26/17 05:18 Labs: Abnormal Lab Results - Last 24 Hours (Table) 08/26/17 Range/Units 05:18 Iron 28 L (65-175) ug/dL Iron Saturation 8.43 L (15.00-50.00) Assessment and Plan Plan: Assessment: #1. Nonoliguric acute kidney injury secondary to ATN secondary to cardiorenal syndrome. Creatinine down to 2.0 today. #2. Chronic kidney disease stage III secondary to cardiorenal syndrome with baseline creatinine in the range of 1.62. #3. Anemia of chronic kidney disease. Iron deficiency noted as well. #4. Systolic CHF with ejection fraction of 35-40% with moderate to severe mitral regurgitation, severe tricuspid regurgitation and severe pulmonary hypertension. #5. Volume overload. Improving. #6. Bilateral pleural effusion status post right-sided thoracentesis on August 23 with 1.6 L drained. Plan: Continue Bumex 3 mg orally twice daily. Maintain Zaroxolyn 2.5 mg daily. Discontinue hydrochlorothiazide. Discontinue Diamox. Ferrlicit 125 mg IV daily for 3 days. First dose today. Repeat electrolytes in the morning.
[2017-08-27] MEDS: ASCORBIC ACID 500 MG TAB PO SCH ×3 (08:55→20:54)
[2017-08-27] MEDS: ASPIRIN 81 MG PO SCH (08:56)
[2017-08-27] MEDS: BUMETANIDE 1 MG TAB PO SCH ×2 (08:56→16:00)
[2017-08-27] MEDS: FERROUS SULFATE 325 MG TAB PO SCH ×2 (08:56→20:54)
[2017-08-27] MEDS: guaiFENesin-DM 600/30MG 1 EACH TAB.ER.12H PO SCH ×2 (08:57→20:54)
[2017-08-27] MEDS: METOLAZONE 2.5 MG TAB PO SCH (08:57)
[2017-08-27] MEDS: POLYETHYLENE GLYCOL 3350 17 GM POWD.PACK PO SCH (08:57)
[2017-08-27] MEDS: FOLIC ACID 1 MG TAB PO SCH ×2 (08:58→11:49)
[2017-08-27] MEDS: cefTRIAXone IN SWFI 1,000 MG/10 ML SYRINGE IVP SCH (09:14)
[2017-08-27] MEDS: SODIUM FERRIC GLUCONAT-SUCROSE 125 MG in SODIUM CHLORIDE 0.9% 100 ML IVPB SCH (09:14)
--- NOTE | 2017-08-27 11:50 | P.PN ---
Subjective Progress Note Date: 08/27/17 Principal diagnosis: Acute exacerbation of systolic congestive heart failure. This is an 82-year-old male patient was hospitalized because of worsening shortness of breath. The patient is currently being treated for an acute decompensation of congestion heart failure. The patient was initially placed on IV Lasix and based on some suboptimal response the patient was placed on a Bumex drip. He is producing adequate amount of urine output. His lower extremities edema is improving. His chest x-ray shows organomegaly and small bilateral pleural effusions. The patient has multiple medical problems and comorbidities. He is currently free of any angina. His undergone previous bypass surgery for coronary artery disease. He has chronic renal failure. He also has chronic atrial fibrillation and he has been on no antiplatelet coagulation based on previous history of GI bleed. He is known to have also COPD and hypertension and chronic dyspnea. Note that on admission, his proBNP level was 38,000. His creatinine was at 1.9. He is afebrile. He is pulse oxing on the Naprosyn 2 L of oxygen by nasal cannula. HEENT denies having any specific complaints on today's evaluation. He is responding nicely to diuretics and the patient's creatinine is down to 1.6. His echocardiogram from this current admission shows an ejection fraction of 35-40% along with segmental wall motion abnormalities as the anterior wall is hypokinetic and there is also to hypokinesia. There is no evidence also right-sided failure knowing that the patient's right ventricular size and structures enlarged and dilated so is the right atrium. So in the left atrium and there is moderate to severe degree of mitral regurgitation and severe tricuspid regurgitation along with a pulmonary artery pressure of 88 mmHg. As such this patient has biventricular failure in addition to underlying coronary artery disease and valvular heart disease with moderate severe mitral regurgitation. On 08/23/2017 I'm seeing this patient for a follow-up. I discussed the case with cardiology. As mentioned earlier the patient was hospitalized for an acute CHF and the respiratory failure. The patient was not responding nicely to diuretics it was offered. He was offered initially Lasix and following that he was switched to a Bumex drip. He continued to have large bilateral pleural effusion on subsequent chest x-rays. Based on that, I performed a thoracentesis of the right lung today and this was done at the bedside without any complications and the total amount of 1.6 L of pleural fluid was aspirated from the right lung. The fluid was light yellow in color. No complications. The patient felt better following the procedure. We are continuing to diuretics and may consider performing a thoracentesis on the left at a later stage. Would optimize the fluid balance. We'll continue to follow this patient with cardiology. The patient is seen again today 08/24/2017 in follow-up on the selective care unit. He is currently sitting up in a chair at the bedside. He is awake and alert in no acute distress. He is status post right-sided thoracentesis of 1.6 L of suspected transitive fluid removed. He is breathing easier today as compared to yesterday. Maintaining good O2 saturations in the 90s on room air. His been afebrile. Hemodynamically stable. White count 6.2. Hemoglobin 8.9 status post 1 unit packed red blood cells. BUN 85, creatinine 2.10. The patient is seen again today 08/25/2017 in follow-up on the selective care unit. He is currently resting quite comfortably in bed. He is awake and alert in no acute distress. Pleural fluid from previous thoracentesis of the right revealed no malignancy. Ultrasound of the left reveals a 5.5 cm pleural effusion. He is breathing easier today as compared to yesterday. Maintaining good O2 saturations in the 90s on room air. He's been afebrile. Hemodynamically stable. White count 6.8. Hemoglobin 8.4. Creatinine 2.17. He remains on a Bumex drip at 0.5 mg per hour. The patient is seen again today 08/26/2017 in follow-up on the selective care unit. He is awake and alert in no acute distress. He states he is breathing easier today as compared to yesterday. His chest x-ray shows diminished small left pleural effusion and improving right lower lobe infiltrate there is only a small right pleural effusion present. His Bumex drip has been discontinued. He remains on Bumex 3 mg twice a day. He is maintaining good O2 saturations in the mid 90s on 2 L/m per nasal cannula. He is afebrile. Hemodynamically stable. The patient is seen again today 08/27/2017 in follow-up on the selective care unit. He is currently resting quite comfortably in bed. He denies any worsening shortness of breath, cough or congestion. He is maintaining good O2 saturations in the mid 90s on room air. He's been afebrile. Hemodynamically stable. He is receiving iron supplements. Objective - Vital Signs Vital signs: Vital Signs Temp 96.7 F L 08/27/17 08:45 Pulse 69 08/27/17 08:45 Resp 18 08/27/17 08:45 BP 94/54 08/27/17 08:45 Pulse Ox 95 08/27/17 08:45 Intake & Output 08/26/17 08/27/17 08/27/17 18:59 06:59 18:59 Intake Total 420 0 118 Output Total 650 600 Balance -230 -600 118 Weight 80.2 kg 80 kg Intake: Oral 420 0 118 Output: Urine 650 600 Other: Voiding Method Urinal Urinal Urinal Diaper Diaper Diaper - Exam Gen. appearance the patient is calm comfortable no acute distress. He is awake and alert and sitting up on a chair. Head exam was generally normal. There was no scleral icterus or corneal arcus. Mucous membranes were moist.Neck was supple and without jugular venous distension, thyromegaly, or carotid bruits. Carotids were easily palpable bilaterally. There was no adenopathy. The patient has no jugular venous distention and scars of previous endarterectomy in the neck. Lungs are diminished in lung bases bilaterally with some faint crackles. No labored breathing. The dullness in the right side improved following the thoracentesis. No use of accessory muscles of breathing. Abdominal exam revealed normal bowel sounds. The abdomen was soft, non-tender, and without masses, organomegaly, or appreciable enlargement of the abdominal aorta. Extremities reveal +1 pitting edema bilaterally reaching the knees. No cyanosis or clubbing. Examination of the skin revealed no evidence of significant rashes, suspicious appearing nevi or other concerning lesions. Neurologically the patient awake and alert and there is no focal neurological deficit. Psychiatric to the patient has normal mood and affect. - Labs CBC & Chem 7: 08/26/17 05:18 08/26/17 05:18 Labs: Abnormal Lab Results - Last 24 Hours (Table) 08/26/17 Range/Units 05:18 Iron 28 L (65-175) ug/dL Iron Saturation 8.43 L (15.00-50.00) Assessment and Plan Assessment: Assessment 1 acute hypoxic respiratory failure secondary to acute decompensated biventricular heart failure, systolic in nature with obvious signs of fluid overload. Bumex drip discontinued. Currently on Bumex 3 mg twice a day. 2 bilateral pleural effusion secondary to above. Status post right-sided thoracentesis with 1.6 L removed. Negative for malignancy. Today's chest x- ray reveals improved pleural effusions no plans for thoracentesis on the left 3 bilateral lower extremity edema secondary to above, improved. 4 coronary artery disease with decreased bypass surgery 5 CHF systolic failure, chronic with an ejection fraction of 30-35%. 6 valvular heart disease with moderate to severe mitral regurgitation and severe tricuspid regurgitation with severe pulmonary hypertension 7 right-sided heart failure secondary to above, PA pressures in the severe range , 88 mmHg 8 chronic renal failure with stage III kidney disease 9 chronic atrial fibrillation rate controlled on no anticoagulants for now 10 COPD 11 hypertension 12 hyperlipidemia 13 degenerative arthritis 14 carotid artery disease with bilateral endarterectomy 15 endovascular stent involving the lower arteries for renal artery stenosis 16 chronic anemia, multifactorial 17 positive troponin leak secondary to above, nonspecific, not related to an acute cardiac event or coronary event. Plan: The patient was seen and evaluated by Dr. Parsons. The patient is stable from the pulmonary standpoint. We'll continue with his current medications. We'll increase his activity as tolerated. We will continue to follow. I, the cosigning physician, performed a history & physical examination of the patient. Lungs sounds are clear anterior and posteriorly. Maintaining good O2 saturations in the 90s on room air. I discussed the assessment and plan of care with my nurse practitioner, Chrissy Snow. I attest to the above note as dictated by her.
--- NOTE | 2017-08-27 12:31 | P.PN ---
Subjective Progress Note Date: 08/27/17 Principal diagnosis: CHF This is an 82-year-old gentleman with history of coronary artery disease and prior bypass surgery, hyperlipidemia, renal insufficiency, chronic persistent atrial fibrillation, not on anticoagulation because of history of GI bleed Congestive heart failure, COPD, hypertension, who presented to the hospital with symptoms of progressively worsening shortness of breath. He was seen in consultation yesterday by Dr. Nunez and initiated on IV Lasix, he did diurese well through the night. Creatinine today is down to 1.9. I did have a lengthy discussion today with the daughter regarding anticoagulation. Patient had been on anticoagulation in the past and is no longer on it because of GI bleeding. We explained to the patient as risk of stroke not being on anticoagulation and we also explained that we will put the patient on a baby aspirin daily. He was sitting up in the chair today at the time of my examination, states he is feeling somewhat better but still short of breath. Continues to have mild peripheral edema. Blood pressure 124/72, heart rate in the 80s, temperature 97.2, 100% on 2 L of oxygen. White blood cell count 5.0, hemoglobin 9.5, platelet count 197. Sodium 142, potassium 4.1, BUN 76, creatinine 1.9. His BNP level on admission was 38,900. 08/21/2017 Patient was seen and examined this morning, diuresing on IV Lasix. His weight is down 1 kg today. Chest x-ray was repeated today which revealed no change in pleural effusions. Ejection fraction by echocardiogram showed an EF of 35-40%. Moderate to severe MR, severe TR, severe pulmonary hypertension. Blood pressure 138/60 with a heart rate in the 70s to 80s. 99% on 2 L of oxygen. Sodium 142, potassium 3.9, BUN 74, creatinine 1.8. 08/22/2017 Seen and examined this morning, sitting up in the chair at bedside, edema improving significantly. Breathing also improving. Good urine output, weight is down today, creatinine 1.6. We will continue with the IV Bumex, repeat chest x-ray tomorrow morning. 08/24/2017 Patient seen and examined this morning, sitting up in the chair at bedside. He did undergo a right-sided thoracentesis, 1.6 L of total fluid removed. Chest x- ray performed post thoracentesis revealed continued moderate left and small right effusions with adjacent atelectasis and/or consolidation. Blood pressure 106/50 with a heart rate in the 90s. White blood cell count 6.2, hemoglobin 8.9 , platelet count 205. Sodium 139, potassium 4.4, BUN 85, creatinine 2.1. 08/25/2017 Patient seen and examined this morning, underwent an ultrasound of the left chest which revealed a 5.5 cm left pleural effusion. The fluid which was removed on the right side revealed no malignancy. Overall patient is breathing much easier. Hemodynamically stable. Continues to be on a Bumex drip at 0.5 mg per hour. 08/26/2017 Patient seen and examined this morning, sitting up in the chair at bedside. Feeling significantly better, air entry bilaterally significantly improved today. Repeat chest x-ray of today reveals diminished small left pleural effusion with improving right lower lobe infiltrate. Blood pressure 124/78 with a heart rate in the 70s, 95% on 2 L of oxygen. Hemoglobin 7.9, platelet count 177. Sodium 136, potassium 3.8, BUN 97, creatinine 2.0. 08/27/2017 Patient was seen and examined this morning, lying in bed at the time of my examination. He states he did not sleep well last night, denies any shortness of breath, blood pressure 94/54, heart rate in the 60s, respirations 18. White blood cell count 4.6, hemoglobin 7.9, platelet count 177. Sodium 136, potassium 3.8, BUN 97, creatinine 2.0. Objective - Vital Signs Vital signs: Vital Signs Temp 96.7 F L 08/27/17 08:45 Pulse 69 08/27/17 08:45 Resp 18 08/27/17 08:45 BP 94/54 08/27/17 08:45 Pulse Ox 95 08/27/17 08:45 Intake & Output 08/26/17 08/27/17 08/27/17 18:59 06:59 18:59 Intake Total 420 0 118 Output Total 650 600 Balance -230 -600 118 Weight 80.2 kg 80 kg Intake: Oral 420 0 118 Output: Urine 650 600 Other: Voiding Method Urinal Urinal Urinal Diaper Diaper Diaper - Exam PHYSICAL EXAMINATION: HEENT: Head is atraumatic, normocephalic. Pupils equal, round. Neck is supple. There is elevated jugular venous pressure. HEART EXAMINATION: Heart S1 and S2 irregularly irregular a systolic ejection murmur is heard. CHEST EXAMINATION: Lungs reveal improvement in air entry bilaterally, fine rales audible to the right posterior base ABDOMEN: Soft, nontender. Bowel sounds are heard. No organomegaly noted. EXTREMITIES: 2+ peripheral pulses with trace-1+ evidence of peripheral edema, bilateral Cordell wraps in place . NEUROLOGIC patient is awake, alert and oriented -3. . - Labs CBC & Chem 7: 08/26/17 05:18 08/26/17 05:18 Labs: Abnormal Lab Results - Last 24 Hours (Table) 08/26/17 Range/Units 05:18 Iron 28 L (65-175) ug/dL Iron Saturation 8.43 L (15.00-50.00) Assessment and Plan Plan: Assessment and plan #1 congestive heart failure, systolic acute on chronic #2 known history of coronary artery disease with prior bypass surgery #3 history of valve replacement #4 COPD #5 hypertension #6 hyperlipidemia #7 chronic persistent atrial fibrillation, not on anticoagulation because of history of prior GI bleed #8 chronic kidney disease #9 abnormal troponin, not consistent with acute coronary syndrome, likely secondary to abnormal renal function. Plan From cardiology's perspective, we will recommend physical therapy consultation to increase activity and the patient. Discharge planning. DNP note has been reviewed, I agree with a documented findings and plan of care. Patient was seen and examined.
--- NOTE | 2017-08-27 16:04 | PN ---
PROGRESS NOTE DATE OF SERVICE: 08/27/17. PRESENTING COMPLAINT: Short of breath. INTERVAL HISTORY: This patient has CHF exacerbation, had been on Bumex drip. Now switched over to p.o. Bumex. Patient rather tired and lethargic requiring assistance. Did walk about 30 feet with physical therapy, but really tired, run down, lying in bed. REVIEW OF SYSTEMS: Done for constitutional, cardiovascular, GI, pulmonary; relevant findings as above. CURRENT MEDICATIONS: Reviewed that include Bumex 3 mg twice a day and Zaroxolyn. The patient's Diamox and hydrochlorothiazide have been discontinued. EXAMINATION: Temp 96.7, pulse 69, respiratory 18, blood pressure 123/58, pulse ox 96% on room air. GENERAL APPEARANCE: Lying in bed, tired appearing. EYES: Pupils equal. Conjunctivae normal. HEENT: External appearance of nose and ears normal. Oral cavity, a bit dry. NECK: JVD not raised. Mass not palpable. RESPIRATORY: Effort, lungs diminished breath sounds. CARDIOVASCULAR: First and second sounds normal. Decreased edema. ABDOMEN: Soft, nontender. Liver and spleen not palpable. Some scrotal edema present. PSYCHIATRY: Tired and lethargic but does answer simple questions. INVESTIGATIONS: White count 4.6, hemoglobin 7.9, potassium 3.8, BUN 97, creatinine 2.0. ASSESSMENT: 1. Acute on chronic congestive heart failure from systolic dysfunction and diastolic dysfunction, ejection fraction 30 to 35%, now compensated. 2. Bilateral pleural effusion status post right thoracentesis from congestive heart failure. 3. Hypertensive heart disease. 4. Moderate to severe mitral regurgitation and severe tricuspid regurgitation, nonrheumatic. 5. 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 6. Coronary artery prior history of coronary bypass. 7. Chronic obstructive pulmonary disease. 8. Essential hypertension. 9. Hyperlipidemia. 10.Primary osteoarthritis of multiple joints. 11.Persistent atrial fibrillation. 12.Chronic kidney stage IIIB, from hypertensive nephrosclerosis. 13.Troponin leak from CHF. 14.Coumadin monitoring. 15.Urinary tract infection. PLAN: The patient continued on IV ceftriaxone. Prognosis is not good. I spoke to patient's daughter, Vriginie, on the phone. I did explain to the patient that overall prognosis is not good and since patient is so weak, will need inpatient rehab. Also spoke to the hospice case manager, Layla, and looking at getting the patient to rehab tomorrow. The patient also was given IV iron by Nephrology. Overall prognosis guarded. MMODL / IJN: [id number] /
[2017-08-27] MEDS: ATORVASTATIN 20 MG TAB PO SCH (21:00)
[2017-08-28] MEDS: CARVEDILOL 3.125 MG TAB PO SCH (06:56)
[2017-08-28] MEDS: CALCIUM ACETATE 667 MG CAP PO SCH ×2 (06:56→12:29)
[2017-08-28 06:57] LABS: Calcium 9.8 mg/dL (8.4-10.2); Magnesium 2.5 mg/dL (1.6-2.3)
--- NOTE | 2017-08-28 08:26 | P.PN ---
Subjective Patient is seen in follow-up for acute kidney injury on chronic kidney disease. Patient has chronic kidney disease stage III secondary to cardiorenal syndrome with baseline creatinine in the range of 1.6-2. Creatinine today is 2.19. He is currently maintained on oral Bumex as well as Zaroxolyn. Edema is improving. Admits to good UO. Denies chest pain or shortness of breath. No vomiting or diarrhea. Vital signs are stable. General: The patient appeared well nourished and normally developed. HEENT: Head exam is unremarkable. Neck is without jugular venous distension. LUNGS: Lungs are clear to auscultation and percussion. Breath sounds decreased. HEART: Rate and Rhythm are regular. First and second heart sounds normal. No murmurs, rubs or gallops. ABDOMEN: Abdominal exam reveals normal bowel sounds. Non-tender and non- distended. No evidence of peritonitis. EXTREMITITES: Trace edema. Objective - Vital Signs Vital signs: Vital Signs Temp 97.1 F L 08/28/17 04:00 Pulse 67 08/28/17 04:00 Resp 16 08/28/17 04:00 BP 115/53 08/28/17 04:00 Pulse Ox 100 08/28/17 04:00 Intake & Output 08/27/17 08/28/17 08/28/17 18:59 06:59 18:59 Intake Total 358 0 Balance 358 0 Weight 79.8 kg Intake: Oral 358 0 Other: Voiding Method Urinal Urinal Diaper Diaper # Voids 2 - Labs CBC & Chem 7: 08/26/17 05:18 08/28/17 06:24 Labs: Abnormal Lab Results - Last 24 Hours (Table) 08/28/17 Range/Units 06:24 Potassium 3.0 L* (3.5-5.1) mmol/L Chloride 91 L (98-107) mmol/L Carbon Dioxide 35 H (22-30) mmol/L BUN 102 H* (9-20) mg/dL Creatinine 2.19 H (0.66-1.25) mg/dL Magnesium 2.5 H (1.6-2.3) mg/dL Assessment and Plan Plan: Assessment: #1. Nonoliguric acute kidney injury secondary to ATN secondary to cardiorenal syndrome. Creatinine worse at 2.19 today. #2. Chronic kidney disease stage III secondary to cardiorenal syndrome with baseline creatinine in the range of 1.62. #3. Anemia of chronic kidney disease. Iron deficiency noted as well. #4. Systolic CHF with ejection fraction of 35-40% with moderate to severe mitral regurgitation, severe tricuspid regurgitation and severe pulmonary hypertension. #5. Volume overload. Improving. #6. Bilateral pleural effusion status post right-sided thoracentesis on August 23 with 1.6 L drained. #7. Hypokalemia secondary to diuresis. Magnesium replete. Plan: I will decrease Bumex to 2 mg twice a day. Maintain Zaroxolyn 2.5 mg daily. Discontinued hydrochlorothiazide August 27. Discontinued Diamox August 27. Ferrlicit 125 mg IV daily for 3 days. Second dose today. Replace potassium. 60 mEq today. Add maintenance potassium 20 mEq daily. Repeat electrolytes in the morning.
[2017-08-28] MEDS ORDERED: BUMETANIDE 1 MG TAB PO SCH (09:00)
[2017-08-28] MEDS ORDERED: POTASSIUM CHLORIDE ER 20 MEQ TAB.ER PO ONE ×2 (09:00→11:00)
[2017-08-28] MEDS: ASPIRIN 81 MG PO SCH (10:28)
[2017-08-28] MEDS: ASCORBIC ACID 500 MG TAB PO SCH (10:28)
[2017-08-28] MEDS: cefTRIAXone IN SWFI 1,000 MG/10 ML SYRINGE IVP SCH (10:29)
[2017-08-28] MEDS: FERROUS SULFATE 325 MG TAB PO SCH (10:29)
[2017-08-28] MEDS: guaiFENesin-DM 600/30MG 1 EACH TAB.ER.12H PO SCH (10:29)
[2017-08-28] MEDS: POLYETHYLENE GLYCOL 3350 17 GM POWD.PACK PO SCH (10:30)
[2017-08-28] MEDS: SODIUM FERRIC GLUCONAT-SUCROSE 125 MG in SODIUM CHLORIDE 0.9% 100 ML IVPB SCH (10:30)
[2017-08-28] MEDS: METOLAZONE 2.5 MG TAB PO SCH (10:30)
[2017-08-28 11:40] VITALS: RESP 18
--- NOTE | 2017-08-28 12:07 | P.PN ---
Subjective Progress Note Date: 08/28/17 Principal diagnosis: Acute exacerbation of systolic congestive heart failure. This is an 82-year-old male patient was hospitalized because of worsening shortness of breath. The patient is currently being treated for an acute decompensation of congestion heart failure. The patient was initially placed on IV Lasix and based on some suboptimal response the patient was placed on a Bumex drip. He is producing adequate amount of urine output. His lower extremities edema is improving. His chest x-ray shows organomegaly and small bilateral pleural effusions. The patient has multiple medical problems and comorbidities. He is currently free of any angina. His undergone previous bypass surgery for coronary artery disease. He has chronic renal failure. He also has chronic atrial fibrillation and he has been on no antiplatelet coagulation based on previous history of GI bleed. He is known to have also COPD and hypertension and chronic dyspnea. Note that on admission, his proBNP level was 38,000. His creatinine was at 1.9. He is afebrile. He is pulse oxing on the Naprosyn 2 L of oxygen by nasal cannula. HEENT denies having any specific complaints on today's evaluation. He is responding nicely to diuretics and the patient's creatinine is down to 1.6. His echocardiogram from this current admission shows an ejection fraction of 35-40% along with segmental wall motion abnormalities as the anterior wall is hypokinetic and there is also to hypokinesia. There is no evidence also right-sided failure knowing that the patient's right ventricular size and structures enlarged and dilated so is the right atrium. So in the left atrium and there is moderate to severe degree of mitral regurgitation and severe tricuspid regurgitation along with a pulmonary artery pressure of 88 mmHg. As such this patient has biventricular failure in addition to underlying coronary artery disease and valvular heart disease with moderate severe mitral regurgitation. On 08/23/2017 I'm seeing this patient for a follow-up. I discussed the case with cardiology. As mentioned earlier the patient was hospitalized for an acute CHF and the respiratory failure. The patient was not responding nicely to diuretics it was offered. He was offered initially Lasix and following that he was switched to a Bumex drip. He continued to have large bilateral pleural effusion on subsequent chest x-rays. Based on that, I performed a thoracentesis of the right lung today and this was done at the bedside without any complications and the total amount of 1.6 L of pleural fluid was aspirated from the right lung. The fluid was light yellow in color. No complications. The patient felt better following the procedure. We are continuing to diuretics and may consider performing a thoracentesis on the left at a later stage. Would optimize the fluid balance. We'll continue to follow this patient with cardiology. The patient is seen again today 08/24/2017 in follow-up on the selective care unit. He is currently sitting up in a chair at the bedside. He is awake and alert in no acute distress. He is status post right-sided thoracentesis of 1.6 L of suspected transitive fluid removed. He is breathing easier today as compared to yesterday. Maintaining good O2 saturations in the 90s on room air. His been afebrile. Hemodynamically stable. White count 6.2. Hemoglobin 8.9 status post 1 unit packed red blood cells. BUN 85, creatinine 2.10. The patient is seen again today 08/25/2017 in follow-up on the selective care unit. He is currently resting quite comfortably in bed. He is awake and alert in no acute distress. Pleural fluid from previous thoracentesis of the right revealed no malignancy. Ultrasound of the left reveals a 5.5 cm pleural effusion. He is breathing easier today as compared to yesterday. Maintaining good O2 saturations in the 90s on room air. He's been afebrile. Hemodynamically stable. White count 6.8. Hemoglobin 8.4. Creatinine 2.17. He remains on a Bumex drip at 0.5 mg per hour. The patient is seen again today 08/26/2017 in follow-up on the selective care unit. He is awake and alert in no acute distress. He states he is breathing easier today as compared to yesterday. His chest x-ray shows diminished small left pleural effusion and improving right lower lobe infiltrate there is only a small right pleural effusion present. His Bumex drip has been discontinued. He remains on Bumex 3 mg twice a day. He is maintaining good O2 saturations in the mid 90s on 2 L/m per nasal cannula. He is afebrile. Hemodynamically stable. The patient is seen again today 08/27/2017 in follow-up on the selective care unit. He is currently resting quite comfortably in bed. He denies any worsening shortness of breath, cough or congestion. He is maintaining good O2 saturations in the mid 90s on room air. He's been afebrile. Hemodynamically stable. He is receiving iron supplements. The patient is seen again today 08/28/2017 in follow-up on the selective care unit. He is currently resting quite comfortably in bed. He denies any worsening shortness of breath cough or congestion. Most recent chest x-ray had showed improved right lower lobe infiltrate with a small right pleural effusion postthoracentesis along with a diminished small left pleural effusion. He is maintaining O2 saturations in the 90s on room air. He's been afebrile. Hemodynamically stable. Objective - Vital Signs Vital signs: Vital Signs Temp 96.9 F L 08/28/17 10:55 Pulse 60 08/28/17 10:55 Resp 18 08/28/17 10:55 BP 107/48 08/28/17 10:55 Pulse Ox 99 08/28/17 10:55 Intake & Output 08/27/17 08/28/17 08/28/17 18:59 06:59 18:59 Intake Total 358 0 Balance 358 0 Weight 79.8 kg Intake: Oral 358 0 Other: Voiding Method Urinal Urinal Urinal Diaper Diaper Diaper # Voids 2 - Exam Gen. appearance the patient is calm comfortable no acute distress. He is awake and alert and sitting up on a chair. Head exam was generally normal. There was no scleral icterus or corneal arcus. Mucous membranes were moist.Neck was supple and without jugular venous distension, thyromegaly, or carotid bruits. Carotids were easily palpable bilaterally. There was no adenopathy. The patient has no jugular venous distention and scars of previous endarterectomy in the neck. Lungs are diminished in lung bases bilaterally with some faint crackles. No labored breathing. The dullness in the right side improved following the thoracentesis. No use of accessory muscles of breathing. Abdominal exam revealed normal bowel sounds. The abdomen was soft, non-tender, and without masses, organomegaly, or appreciable enlargement of the abdominal aorta. Extremities reveal +1 pitting edema bilaterally reaching the knees. No cyanosis or clubbing. Examination of the skin revealed no evidence of significant rashes, suspicious appearing nevi or other concerning lesions. Neurologically the patient awake and alert and there is no focal neurological deficit. Psychiatric to the patient has normal mood and affect. - Labs CBC & Chem 7: 08/26/17 05:18 08/28/17 06:24 Labs: Abnormal Lab Results - Last 24 Hours (Table) 08/28/17 Range/Units 06:24 Potassium 3.0 L* (3.5-5.1) mmol/L Chloride 91 L (98-107) mmol/L Carbon Dioxide 35 H (22-30) mmol/L BUN 102 H* (9-20) mg/dL Creatinine 2.19 H (0.66-1.25) mg/dL Magnesium 2.5 H (1.6-2.3) mg/dL Assessment and Plan Assessment: Assessment 1 acute hypoxic respiratory failure secondary to acute decompensated biventricular heart failure, systolic in nature with obvious signs of fluid overload. Bumex drip discontinued. Currently on Bumex 2 mg twice a day. 2 bilateral pleural effusion secondary to above. Status post right-sided thoracentesis with 1.6 L removed. Negative for malignancy. Follow-up chest x- ray reveals improved pleural effusions no plans for thoracentesis on the left 3 bilateral lower extremity edema secondary to above, improved. 4 coronary artery disease with decreased bypass surgery 5 CHF systolic failure, chronic with an ejection fraction of 30-35%. 6 valvular heart disease with moderate to severe mitral regurgitation and severe tricuspid regurgitation with severe pulmonary hypertension 7 right-sided heart failure secondary to above, PA pressures in the severe range , 88 mmHg 8 chronic renal failure with stage III kidney disease 9 chronic atrial fibrillation rate controlled on no anticoagulants for now 10 COPD 11 hypertension 12 hyperlipidemia 13 degenerative arthritis 14 carotid artery disease with bilateral endarterectomy 15 endovascular stent involving the lower arteries for renal artery stenosis 16 chronic anemia, multifactorial 17 positive troponin leak secondary to above, nonspecific, not related to an acute cardiac event or coronary event. Plan: The patient was seen and evaluated by Dr. Parsons. The patient is stable from the pulmonary standpoint. No need for any further thoracentesis. We'll continue with his current medications. I, the cosigning physician, performed a history & physical examination of the patient. Lungs sounds are clear anterior and posteriorly. Diminished in the bases. Maintaining good O2 saturations in the 90s on room air. I discussed the assessment and plan of care with my nurse practitioner, Chrissy Snow. I attest to the above note as dictated by her.
[2017-08-28] MEDS: FOLIC ACID 1 MG TAB PO SCH (12:29)
[2017-08-28 15:55] VITALS: BP 114/55; PULSE 70; TEMP 97.4
--- NOTE | 2017-08-28 19:26 | DS ---
DISCHARGE SUMMARY DATE OF ADMISSION: 08/19/17. DATE OF DISCHARGE: August 28, 2017. FINAL DIAGNOSES: 1. Acute on chronic congestive heart failure from systolic dysfunction and diastolic dysfunction EF 30 to 35%, not compensated. 2. Bilateral pleural effusion secondary to CHF with thoracentesis on the right side. 3. Hypertensive heart disease. 4. Moderate to severe mitral regurgitation, severe tricuspid regurgitation, nonrheumatic. 5. Severe secondary pulmonary hypertension with congestive heart failure. 6. Coronary artery disease with prior history of coronary bypass. 7. Chronic obstructive pulmonary disease. 8. Essential hypertension. 9. Hyperlipidemia. 10.Primary osteoarthritis multiple joints. 11.Persistent atrial fibrillation. 12.Chronic kidney disease, stage IIIB, from hypertensive nephrosclerosis. 13.Troponin leak from congestive heart failure. 14.Coumadin monitoring. 15.Acute urinary tract infection. HOSPITAL COURSE: This patient presented with CHF exacerbation, had to be put on a Bumex drip. Did diurese well, but the patient is overall rather weak requiring rehab. I did talk to the patient's daughter at length. Prognosis is guarded. The patient is eating small amounts. Currently patient's BUN and creatinine is 102/2.19. The patient also has low iron stores, was given IV iron. CONSULTATION: Dr. Thomas from Cardiology, Dr. Coulter from Nephrology, Dr. Parsons from Pulmonary. The patient was tapped about a L of fluid from the right side. I did speak at length with the patient's daughter. The patient remains to be a FULL CODE. Prognosis is guarded. DISCHARGE MEDICATIONS: 1. Lipitor 20 mg p.o. daily at night. 2. PhosLo 667 mg p.o. t.i.d. 3. Coreg 3.125 p.o. b.i.d. 4. Iron 325 p.o. b.i.d. 5. Folic acid 1 mg p.o. daily. 6. Nitrostat 0.4 sublingual q.5 p.r.n. 7. MiraLAX 17 g p.o. daily. 8. Vitamin C 500 mg p.o. t.i.d. 9. Aspirin 81 mg p.o. daily. 10.Bumex 2 mg p.o. b.i.d. 11.Ceftin 250 mg p.o. b.i.d. 12.[place] 5 one tab q.6h p.r.n. 13.DuoNeb q.i.d. p.r.n. 14.Zaroxolyn 2.5 p.o. daily. 15.Potassium 20 mEq p.o. daily. BMP in 3 days. EXAM: Patient lethargic but answers questions. Lungs decreased breath sounds. Some edema is present. Edema in the scrotal area. Discussion and discharge planning more than 35 minutes. MMODL / IJN: [id number] /
[2017-08-29] MEDS ORDERED: POTASSIUM CHLORIDE ER 20 MEQ TAB.ER PO SCH (09:00)
== END 2017-08-28 17:27 | DRG 291 ==
LOC: EC 22:59 → 6SEL 08-19 00:46
PROVIDERS: ADMIT Hospitalist; ATTEND Hospitalist
PROC: 0W993ZZ Drainage of Right Pleural Cavity, Percutaneous Approach (ICD-10-PCS; principal; 2017-08-19)
DX: I13.0 Hypertensive heart and chronic kidney disease with heart failure and stage 1 through stage 4 chronic kidney disease, or unspecified chronic kidney disease (principal); I50.43 Acute on chronic combined systolic (congestive) and diastolic (congestive) heart failure; J96.01 Acute respiratory failure with hypoxia; N17.0 Acute kidney failure with tubular necrosis; I48.1 Persistent atrial fibrillation; N39.0 Urinary tract infection, site not specified; J90 Pleural effusion, not elsewhere classified; I27.29 Other secondary pulmonary hypertension; I25.5 Ischemic cardiomyopathy; I25.10 Atherosclerotic heart disease of native coronary artery without angina pectoris; D63.1 Anemia in chronic kidney disease; I34.0 Nonrheumatic mitral (valve) insufficiency; I36.1 Nonrheumatic tricuspid (valve) insufficiency; E61.1 Iron deficiency; E78.5 Hyperlipidemia, unspecified; E87.6 Hypokalemia; T50.2X5A Adverse effect of carbonic-anhydrase inhibitors, benzothiadiazides and other diuretics, initial encounter; I25.2 Old myocardial infarction; I48.2 Chronic atrial fibrillation; I50.82 Biventricular heart failure; I70.1 Atherosclerosis of renal artery; J44.9 Chronic obstructive pulmonary disease, unspecified; M15.9 Polyosteoarthritis, unspecified; M89.9 Disorder of bone, unspecified; N18.3 Chronic kidney disease, stage 3 (moderate); R32 Unspecified urinary incontinence; Z79.899 Other long term (current) drug therapy; Z80.0 Family history of malignant neoplasm of digestive organs; Z87.891 Personal history of nicotine dependence; Z95.1 Presence of aortocoronary bypass graft; Z95.2 Presence of prosthetic heart valve; Z98.42 Cataract extraction status, left eye; Z98.41 Cataract extraction status, right eye; Z79.891 Long term (current) use of opiate analgesic
CPT/HCPCS: 36415; 71045; 71046; 76604; 80048; 80053; 81001; 82550; 82553; 82945; 83540; 83550; 83615; 83735; 83880; 84157; 84484; 85025; 85610; 85730; 86850; 86900; 86901; 86920; 88108; 88305; 89050; 93005; 93306; 94640; 94760; 99285

== ENCOUNTER 2017-08-30 21:15 | Inpatient (IN) | payer MEDICARE, BC ==
[2017-08-30] MEDS ORDERED: FUROSEMIDE 10 MG/ML 10 ML VIAL IV STA (21:29)
--- NOTE | 2017-08-30 21:33 | ED ---
SOB HPI - General Chief Complaint: Shortness of Breath Stated Complaint: HEDY Time Seen by Provider: 08/30/17 21:19 Source: EMS Mode of arrival: EMS Limitations: no limitations - History of Present Illness Initial Comments: This patient is an 82-year-old man transferred here by ambulance from the [facility], where he had become progressively more dyspneic over the course of tonight. The patient's has history of congestive heart failure and chronic kidney disease. He has also noticed that his legs and then swelling. Patient denies chest pain. Denies productive cough. No fever or chills. MD Complaint: shortness of breath -: hour(s) Severity: moderate Consistency: constant Improves With: upright position, other (CPAP) Worsens With: lying flat Known History Of: congestive heart failure Treatments Prior to Arrival: oxygen, bronchodilator, NIPPV, other (Solu-Medrol) - Related Data Home Medications Medication Instructions Recorded Confirmed Atorvastatin [Lipitor] 20 mg PO DAILY@2100 05/10/17 08/19/17 Calcium Acetate [PhosLo] 667 mg PO TID-W/MEALS 05/10/17 08/19/17 Carvedilol [Coreg] 3.125 mg PO BID 05/10/17 08/19/17 Ferrous Sulfate [Iron (65 MG 325 mg PO BID 05/10/17 08/19/17 Elemental)] Folic Acid 1 mg PO DAILY 05/10/17 08/19/17 Nitroglycerin Sl Tabs [Nitrostat] 0.4 mg SUBLINGUAL Q5M PRN 05/10/17 08/19/17 Polyethylene Glycol 3350 [Miralax] 17 gm PO DAILY 05/10/17 08/19/17 Ascorbic Acid [Vitamin C] 500 mg PO TID 08/19/17 08/19/17 Previous Rx's Medication Instructions Recorded Aspirin 81 mg PO DAILY chew 08/28/17 Bumetanide 2 mg PO BID #0 08/28/17 Cefuroxime [Ceftin] 250 mg PO BID #4 tablet 08/28/17 HYDROcodone/APAP 5-325MG [[place] 1 tab PO Q6H PRN #20 tab 08/28/17 5-325] Ipratropium-Albuterol Nebulize 3 ml INHALATION RT-QID PRN 08/28/17 [Duoneb 0.5 mg-3 mg/3 ml Soln] ampul.neb Metolazone [Zaroxolyn] 2.5 mg PO DAILY tab 08/28/17 Potassium Chloride ER [K-Dur 20] 20 meq PO DAILY tab.er.prt 08/28/17 Allergies Allergy/AdvReac Type Severity Reaction Status Date / Time No Known Allergies Allergy Verified 08/19/17 07:51 Review of Systems ROS Statement: Those systems with pertinent positive or pertinent negative responses have been documented in the HPI. ROS Other: All systems not noted in ROS Statement are negative. Limitations: ROS unobtainable due to patients medical condition (Dyspnea) Constitutional: Reports: weakness. Denies: fever Respiratory: Reports: dyspnea. Denies: cough, hemoptysis Cardiovascular: Reports: edema. Denies: chest pain Gastrointestinal: Denies: abdominal pain, vomiting Musculoskeletal: Denies: back pain Neurological: Denies: headache Past Medical History Past Medical History: Coronary Artery Disease (CAD), Heart Failure, COPD, Hyperlipidemia, Hypertension, Myocardial Infarction ([place]), Osteoarthritis (OA), Renal Disease Additional Past Medical History / Comment(s): Coronary artery disease, coronary artery bypass surgery, chronic atrial fibrillation, congestion heart failure with an ejection fraction of 30-35%, valvular heart disease with moderate to severe mitral regurgitation and severe tricuspid regurgitation and severe pulmonary hypertension, chronic lower oximetry edema, chronic pleural effusions , hypertension, hyperlipidemia, chronic renal failure, degenerative arthritis, gout, chronic back pain, chronic anemia, history of fall and closed head injury today that, COPD Last Myocardial Infarction Date:: unk History of Any Multi-Drug Resistant Organisms: None Reported Past Surgical History: Cholecystectomy, Coronary Bypass/CABG, Heart Catheterization Additional Past Surgical History / Comment(s): coronary artery bypass surgery performed in [facility] back in the 1980s, cataract surgery, cardiac catheterization, stenting of the renal arteries, bilateral carotid endarterectomies, cholecystectomy, questionable history of valve replacement although this is not clear Past Anesthesia/Blood Transfusion Reactions: No Reported Reaction Additional Past Anesthesia/Blood Transfusion Reaction / Comment(s): blood transfusions-no reaction Past Psychological History: No Psychological Hx Reported Smoking Status: Former smoker Past Alcohol Use History: None Reported Past Drug Use History: None Reported - Past Family History Mother Family Medical History: No Reported History Additional Family Medical History / Comment(s): " from natural causes" Father Family Medical History: Cancer Additional Family Medical History / Comment(s): rectal cancer General Exam Limitations: no limitations General appearance: alert, in no apparent distress Head exam: Present: atraumatic, normocephalic Eye exam: Present: normal appearance. Absent: scleral icterus, conjunctival injection ENT exam: Present: normal oropharynx Neck exam: Present: normal inspection Respiratory exam: Present: rales (Bilateral bases). Absent: respiratory distress, wheezes, rhonchi, stridor, accessory muscle use, decreased breath sounds Cardiovascular Exam: Present: regular rate, normal rhythm, normal heart sounds. Absent: systolic murmur, diastolic murmur, rubs, gallop GI/Abdominal exam: Present: soft, other (Anasarca). Absent: distended, tenderness, guarding, rebound, mass Extremities exam: Present: normal capillary refill, pedal edema. Absent: calf tenderness Back exam: Absent: CVA tenderness (R), CVA tenderness (L) Neurological exam: Present: alert Skin exam: Present: warm, dry, intact, normal color. Absent: rash Course Vital Signs 08/30/17 08/30/17 08/30/17 21:16 21:40 21:55 Temperature 96.9 F L Pulse Rate 80 69 73 Respiratory 24 25 H 20 Rate Blood Pressure 112/52 111/59 146/64 O2 Sat by Pulse 89 L 100 100 Oximetry 08/30/17 22:35 Temperature Pulse Rate 72 Respiratory 18 Rate Blood Pressure 127/62 O2 Sat by Pulse 100 Oximetry Medical Decision Making - Lab Data Result diagrams: 08/30/17 21:33 08/30/17 21:33 Lab Results 08/30/17 08/30/17 08/30/17 Range/Units 21:33 21:33 21:33 WBC 6.7 (3.8-10.6) k/uL RBC 2.43 L (4.30-5.90) m/uL Hgb 7.3 L (13.0-17.5) gm/dL Hct 24.3 L (39.0-53.0) % MCV 99.9 (80.0-100.0) fL MCH 30.2 (25.0-35.0) pg MCHC 30.2 L (31.0-37.0) g/dL RDW 20.2 H (11.5-15.5) % Plt Count 248 (150-450) k/uL Neutrophils % 76 % Lymphocytes % 7 % Monocytes % 8 % Eosinophils % 2 % Basophils % 0 % Neutrophils # 5.1 (1.3-7.7) k/uL Lymphocytes # 0.5 L (1.0-4.8) k/uL Monocytes # 0.5 (0-1.0) k/uL Eosinophils # 0.2 (0-0.7) k/uL Basophils # 0.0 (0-0.2) k/uL Manual Slide Review Performed Toxic Granulation Present Polychromasia Present Hypochromasia Marked Poikilocytosis Moderate Poikilocytosis (manual Present Anisocytosis Moderate Macrocytosis Moderate Sodium 141 (137-145) mmol/L Potassium 3.9 (3.5-5.1) mmol/L Chloride 93 L (98-107) mmol/L Carbon Dioxide 36 H (22-30) mmol/L Anion Gap 12 mmol/L BUN 99 H* (9-20) mg/dL Creatinine 1.90 H (0.66-1.25) mg/dL Est GFR (CKD-EPI)AfAm 37 (>60 ml/min/1.73 sqM) Est GFR (CKD-EPI)NonAf 32 (>60 ml/min/1.73 sqM) Glucose 106 H (74-99) mg/dL Calcium 10.9 H (8.4-10.2) mg/dL Magnesium 2.6 H (1.6-2.3) mg/dL Total Bilirubin 0.4 (0.2-1.3) mg/dL AST 29 (17-59) U/L ALT 36 (21-72) U/L Alkaline Phosphatase 117 (38-126) U/L Troponin I 0.118 H* (0.000-0.034) ng/mL NT-Pro-B Natriuret Pep pg/mL Total Protein 5.7 L (6.3-8.2) g/dL Albumin 3.0 L (3.5-5.0) g/dL Urine Color Urine Appearance (Clear) Urine pH (5.0-8.0) Ur Specific Cedar (1.001-1.035) Urine Protein (Negative) Urine Glucose (UA) (Negative) Urine Ketones (Negative) Urine Blood (Negative) Urine Nitrite (Negative) Urine Bilirubin (Negative) Urine Urobilinogen (<2.0) mg/dL Ur Leukocyte Esterase (Negative) Urine RBC (0-5) /hpf Urine WBC (0-5) /hpf Hyaline Casts (0-2) /lpf Urine Mucus (None) /hpf 08/30/17 08/30/17 Range/Units 21:33 21:35 WBC (3.8-10.6) k/uL RBC (4.30-5.90) m/uL Hgb (13.0-17.5) gm/dL Hct (39.0-53.0) % MCV (80.0-100.0) fL MCH (25.0-35.0) pg MCHC (31.0-37.0) g/dL RDW (11.5-15.5) % Plt Count (150-450) k/uL Neutrophils % % Lymphocytes % % Monocytes % % Eosinophils % % Basophils % % Neutrophils # (1.3-7.7) k/uL Lymphocytes # (1.0-4.8) k/uL Monocytes # (0-1.0) k/uL Eosinophils # (0-0.7) k/uL Basophils # (0-0.2) k/uL Manual Slide Review Toxic Granulation Polychromasia Hypochromasia Poikilocytosis Poikilocytosis (manual Anisocytosis Macrocytosis Sodium (137-145) mmol/L Potassium (3.5-5.1) mmol/L Chloride (98-107) mmol/L Carbon Dioxide (22-30) mmol/L Anion Gap mmol/L BUN (9-20) mg/dL Creatinine (0.66-1.25) mg/dL Est GFR (CKD-EPI)AfAm (>60 ml/min/1.73 sqM) Est GFR (CKD-EPI)NonAf (>60 ml/min/1.73 sqM) Glucose (74-99) mg/dL Calcium (8.4-10.2) mg/dL Magnesium (1.6-2.3) mg/dL Total Bilirubin (0.2-1.3) mg/dL AST (17-59) U/L ALT (21-72) U/L Alkaline Phosphatase (38-126) U/L Troponin I (0.000-0.034) ng/mL NT-Pro-B Natriuret Pep 76726 pg/mL Total Protein (6.3-8.2) g/dL Albumin (3.5-5.0) g/dL Urine Color Light Yellow Urine Appearance Clear (Clear) Urine pH 6.5 (5.0-8.0) Ur Specific Cedar 1.010 (1.001-1.035) Urine Protein Negative (Negative) Urine Glucose (UA) Negative (Negative) Urine Ketones Negative (Negative) Urine Blood Negative (Negative) Urine Nitrite Negative (Negative) Urine Bilirubin Negative (Negative) Urine Urobilinogen <2.0 (<2.0) mg/dL Ur Leukocyte Esterase Large H (Negative) Urine RBC 1 (0-5) /hpf Urine WBC 19 H (0-5) /hpf Hyaline Casts 10 H (0-2) /lpf Urine Mucus Rare H (None) /hpf - EKG Data -: EKG Interpreted by In EKG shows normal: axis (Normal), intervals (QRS duration 160 ms, prolonged consistent with the right bundle-branch block. QTC is 490 ms, normal), QRS complexes (Right bundle-branch block.), ST-T waves (Lateral T inversions, which are present on the comparison ECG from July 2017) Rate: normal (Rate 67) Interpretation: other (Atrial fibrillation with occasional PVC. Rate 67 bpm. ) Disposition Clinical Impression: Congestive heart failure, Elevated troponin I level, Anemia, Chronic renal failure Disposition: ADMITTED IP TO THIS [facility] Condition: Poor Referrals: Ronak Chairez MD [Primary Care Provider] - 1-2 days
[2017-08-30 21:49] LABS: Anisocytosis Moderate; Basophils % (A) 0 %; Eosinophils # (A) 0.2 k/uL (0-0.7); Eosinophils % (A) 2 %; HCT 24.3 % (39.0-53.0); HGB 7.3 gm/dL (13.0-17.5); Hypochromasia Marked; Lymphocytes # (A) 0.5 k/uL (1.0-4.8); Lymphocytes % (A) 7 %; MCH 30.2 pg (25.0-35.0); MCHC 30.2 g/dL (31.0-37.0); MCV 99.9 fL (80.0-100.0); Macrocytosis Moderate; Mean Platelet Volume 8.5; Monocytes # (A) 0.5 k/uL (0-1.0); Monocytes % (A) 8 %; Neutrophils # (A) 5.1 k/uL (1.3-7.7); Neutrophils % (A) 76 %; Platelet Count 248 k/uL (150-450); Poikilocytosis Moderate; RBC 2.43 m/uL (4.30-5.90); RDW 20.2 % (11.5-15.5); WBC 6.7 k/uL (3.8-10.6)
--- NOTE | 2017-08-30 21:59 | XR ---
EXAMINATION TYPE: XR chest 1V portable DATE OF EXAM: 08/30/2017 COMPARISON: 08/26/2017 INDICATION: Dyspnea difficulty in breathing TECHNIQUE: Single frontal view of the chest is obtained. FINDINGS: The heart size is mildly prominent. The pulmonary vasculature is normal. Bibasilar infiltrates are present greater on the right. IMPRESSION: 1. Bibasilar infiltrates. Atelectasis or pneumonia could be considered at the right base. Findings ar e likely related to subsegmental atelectasis at the left base. 2. Left base spine has improved. Right base findings increasing. Follow-up exams to clearing are tristian mmended.
[2017-08-30 22:01] LABS: Calcium 10.9 mg/dL (8.4-10.2); Magnesium 2.6 mg/dL (1.6-2.3); Poikilocytosis (M) Present; Polychromasia Present; Potassium 3.9 mmol/L (3.5-5.1); Total Bilirubin 0.4 mg/dL (0.2-1.3); Total Protein 5.7 g/dL (6.3-8.2); Toxic Granulation Present
[2017-08-30] MEDS ORDERED: PIPERACILLIN-TAZOBACTAM 3.375 GM in DEXTROSE/WATER 1 50ML.BAG IVPB STA (22:01)
[2017-08-30] MEDS ORDERED: LEVOFLOXACIN 750 MG TAB PO STA (22:01)
[2017-08-30 22:08] LABS: Appearance,Urine Clear (Clear); Bilirubin,Urine Negative (Negative); Blood,Urine Negative (Negative); Color,Urine Light Yellow; Glucose,Urine (UA) Negative (Negative); Hyaline Casts,Urine 10 /lpf (0-2); Ketones,Urine Negative (Negative); Leukocyte Esterase,Urine Large (Negative); Mucus,Urine Rare /hpf; Nitrite,Urine Negative (Negative); PH, Urine 6.5 (5.0-8.0); Protein,Urine Negative (Negative); RBC,Urine 1 /hpf (0-5); Urobilinogen,Urine <2.0 mg/dL (<2.0); WBC,Urine 19 /hpf (0-5)
[2017-08-30] MEDS ORDERED: HYDROcodone/APAP 5-325MG 1 EACH TAB PO PRN (23:02)
[2017-08-31 04:07] LABS: Creatine Kinase MB 1.1 ng/mL (0.0-2.4)
[2017-08-31 04:11] LABS: Troponin I 0.097 ng/mL (0.000-0.034)
[2017-08-31] MEDS: CALCIUM ACETATE 667 MG CAP PO SCH ×4 (06:48→17:08)
[2017-08-31] MEDS: CARVEDILOL 3.125 MG TAB PO SCH ×2 (06:48→17:08)
[2017-08-31 07:19] LABS: Creatine Kinase MB 1.2 ng/mL (0.0-2.4)
[2017-08-31 07:27] LABS: Troponin I 0.088 ng/mL (0.000-0.034)
--- NOTE | 2017-08-31 08:15 | P.CRDCN ---
History of Present Illness Consult date: 08/31/17 Requesting physician: Dash Roper Consult reason: congestive heart failure Chief complaint: Weakness and shortness of breath History of present illness: This is a pleasant 82-year-old gentleman who was just discharged from the hospital on the sixth of this month, in the hospital at that time with congestive cardiac failure, he was discharged to [facility], readmitted on this occasion with symptoms of worsening shortness of breath with associated weakness. Patient has a known history of coronary artery disease with prior bypass surgery, hyperlipidemia, renal insufficiency, chronic persistent atrial fibrillation, not on anticoagulation because of history of GI bleed, congestive cardiac failure, COPD, hypertension. His EKG on admission showed atrial fibrillation with a right bundle branch block pattern. Chest x-ray showed bibasilar infiltrates, atelectasis or pneumonia could be considered at the right base. Left base has improved. Blood pressure 128/60 with a heart rate in the 70s, afebrile. Oxygen saturation on admission 89% on BiPAP this morning 95% on 4 L. White blood cell count 6.7, hemoglobin 7.3, platelet count 248. Sodium 141, potassium 3.9, BUN 99, creatinine 1.9. Troponin 0.11, 0.09, 0.08. BNP level 29,100. Echo with Doppler study was done on this recent admission which revealed an ejection fraction of 35-40%. Moderate to severe MR, severe TR , severe pulmonary hypertension. Patient was given one dose of IV Lasix in the emergency room, diuresed well from that. At the time of my examination this morning, feeling extremely weak, mildly short of breath, however he states not any more significant than his usual. Past Medical History Past Medical History: Coronary Artery Disease (CAD), Heart Failure, COPD, Hyperlipidemia, Hypertension, Myocardial Infarction ([place]), Osteoarthritis (OA), Renal Disease Additional Past Medical History / Comment(s): Coronary artery disease, coronary artery bypass surgery, chronic atrial fibrillation, congestion heart failure with an ejection fraction of 30-35%, valvular heart disease with moderate to severe mitral regurgitation and severe tricuspid regurgitation and severe pulmonary hypertension, chronic lower oximetry edema, chronic pleural effusions , hypertension, hyperlipidemia, chronic renal failure, degenerative arthritis, gout, chronic back pain, chronic anemia, history of fall and closed head injury today that, COPD Last Myocardial Infarction Date:: unk History of Any Multi-Drug Resistant Organisms: None Reported Past Surgical History: Cholecystectomy, Coronary Bypass/CABG, Heart Catheterization Additional Past Surgical History / Comment(s): coronary artery bypass surgery performed in [facility] back in the 1980s, cataract surgery, cardiac catheterization, stenting of the renal arteries, bilateral carotid endarterectomies, cholecystectomy, questionable history of valve replacement although this is not clear Past Anesthesia/Blood Transfusion Reactions: No Reported Reaction Additional Past Anesthesia/Blood Transfusion Reaction / Comment(s): blood transfusions-no reaction Past Psychological History: No Psychological Hx Reported Smoking Status: Former smoker Past Alcohol Use History: None Reported Additional Past Alcohol Use History / Comment(s): started smoking at age 10(1946 ), quit 1960 smoked 1 ppd Past Drug Use History: None Reported - Past Family History Mother Family Medical History: No Reported History Additional Family Medical History / Comment(s): " from natural causes" Father Family Medical History: Cancer Additional Family Medical History / Comment(s): rectal cancer Medications and Allergies Home Medications Medication Instructions Recorded Confirmed Type Atorvastatin [Lipitor] 20 mg PO DAILY@2100 05/10/17 08/19/17 History Calcium Acetate [PhosLo] 667 mg PO TID-W/MEALS 05/10/17 08/19/17 History Carvedilol [Coreg] 3.125 mg PO BID 05/10/17 08/19/17 History Ferrous Sulfate [Iron (65 MG 325 mg PO BID 05/10/17 08/19/17 History Elemental)] Folic Acid 1 mg PO DAILY 05/10/17 08/19/17 History Nitroglycerin Sl Tabs [Nitrostat] 0.4 mg SUBLINGUAL Q5M PRN 05/10/17 08/19/17 History Polyethylene Glycol 3350 [Miralax] 17 gm PO DAILY 05/10/17 08/19/17 History Ascorbic Acid [Vitamin C] 500 mg PO TID 08/19/17 08/19/17 History Aspirin 81 mg PO DAILY chew 08/28/17 Rx Bumetanide 2 mg PO BID #0 08/28/17 08/19/17 Rx Cefuroxime [Ceftin] 250 mg PO BID #4 tablet 08/28/17 Rx HYDROcodone/APAP 5-325MG [[place] 1 tab PO Q6H PRN #20 tab 08/28/17 Rx 5-325] Ipratropium-Albuterol Nebulize 3 ml INHALATION RT-QID PRN 08/28/17 Rx [Duoneb 0.5 mg-3 mg/3 ml Soln] ampul.neb Metolazone [Zaroxolyn] 2.5 mg PO DAILY tab 08/28/17 Rx Potassium Chloride ER [K-Dur 20] 20 meq PO DAILY tab.er.prt 08/28/17 Rx Allergies Allergy/AdvReac Type Severity Reaction Status Date / Time No Known Allergies Allergy Verified 08/19/17 07:51 Physical Exam Vitals: Vital Signs Temp Pulse Pulse Resp BP BP Pulse Ox 08/31/17 04:00 97 F L 79 18 128/59 95 08/31/17 00:30 18 08/30/17 23:50 96.8 F L 71 18 123/62 96 08/30/17 22:35 72 18 127/62 100 08/30/17 21:55 73 20 146/64 100 08/30/17 21:40 69 25 H 111/59 100 08/30/17 21:16 96.9 F L 80 24 112/52 89 L Intake and Output 08/30/17 08/31/17 08/31/17 22:59 06:59 14:59 Intake Total 50 Output Total 1925 Balance -187 Intake: Intake, IV Titration 50 Amount Piperacillin-Tazobactam 3 50 .375 gm In Dextrose/Water 1 50ml.bag @ 12.5 mls/hr IVPB ONCE STA Rx#: [id number] Output: Urine 5 Other: Voiding Method Indwelling Catheter Weight 78.653 kg 76 kg PHYSICAL EXAMINATION: HEENT: Head is atraumatic, normocephalic. Pupils equal, round. Neck is supple. There is elevated jugular venous pressure. HEART EXAMINATION: Heart S1 and S2 irregularly irregular a systolic ejection murmur is heard. CHEST EXAMINATION: Lungs are clear with diminished air entry to bilateral bases. ABDOMEN: Soft, mild tenderness in the right upper quadrant . Bowel sounds are heard. No organomegaly noted. EXTREMITIES: 1+ peripheral pulses with 2+ bilateral peripheral edema. NEUROLOGIC patient is awake, alert and oriented -3. . Results 08/30/17 21:33 08/30/17 21:33 Cardiac Enzymes 08/30/17 08/30/17 08/31/17 Range/Units 21:33 21:33 03:04 AST 29 (17-59) U/L CK-MB (CK-2) 1.1 (0.0-2.4) ng/mL Troponin I 0.118 H* 0.097 H* (0.000-0.034) ng/mL 08/31/17 Range/Units 06:20 AST (17-59) U/L CK-MB (CK-2) 1.2 (0.0-2.4) ng/mL Troponin I 0.088 H* (0.000-0.034) ng/mL CBC 08/30/17 Range/Units 21:33 WBC 6.7 (3.8-10.6) k/uL RBC 2.43 L (4.30-5.90) m/uL Hgb 7.3 L (13.0-17.5) gm/dL Hct 24.3 L (39.0-53.0) % Plt Count 248 (150-450) k/uL Comprehensive Metabolic Panel 08/30/17 Range/Units 21:33 Sodium 141 (137-145) mmol/L Potassium 3.9 (3.5-5.1) mmol/L Chloride 93 L (98-107) mmol/L Carbon Dioxide 36 H (22-30) mmol/L BUN 99 H* (9-20) mg/dL Creatinine 1.90 H (0.66-1.25) mg/dL Glucose 106 H (74-99) mg/dL Calcium 10.9 H (8.4-10.2) mg/dL AST 29 (17-59) U/L ALT 36 (21-72) U/L Alkaline Phosphatase 117 (38-126) U/L Total Protein 5.7 L (6.3-8.2) g/dL Albumin 3.0 L (3.5-5.0) g/dL Current Medications Generic Name Dose Route Start Last Admin Trade Name Freq PRN Reason Stop Dose Admin Hydrocodone Bitart/Acetaminophen 1 each 08/30/17 23:02 [place] 5-325 PO Q6H PRN Pain Albuterol/Ipratropium 3 ml 08/30/17 23:02 Duoneb 0.5 Mg-3 Mg/3 Ml Soln INHALATION RT-QID PRN Shortness Of Breath Or Wheezing Ascorbic Acid 500 mg 08/31/17 09:00 Vitamin C PO TID [facility] Aspirin 81 mg 08/31/17 09:00 Aspirin PO DAILY [facility] Atorvastatin Calcium 20 mg 08/31/17 21:00 Lipitor PO DAILY@2100 [facility] Bumetanide 2 mg 08/31/17 09:00 Bumex PO BID [facility] Calcium Acetate 667 mg 08/31/17 07:30 08/31/17 06:54 Phoslo PO Not Given TID-W/MEALS [facility] Carvedilol 3.125 mg 08/31/17 07:30 08/31/17 06:48 Coreg PO 3.125 mg AC-BID [facility] Administration Cefuroxime Axetil 250 mg 08/31/17 09:00 Ceftin PO BID [facility] Ferrous Sulfate 325 mg 08/31/17 09:00 Feosol PO BID [facility] Folic Acid 1 mg 08/31/17 09:00 Folic Acid PO DAILY [facility] Heparin Sodium (Porcine) 5,000 unit 08/31/17 09:00 Heparin SQ Q12HR [facility] Metolazone 2.5 mg 08/31/17 09:00 Zaroxolyn PO DAILY [facility] Polyethylene Glycol 17 gm 08/31/17 09:00 Miralax PO DAILY [facility] Potassium Chloride 20 meq 08/31/17 09:00 K-Dur 20 PO DAILY [facility] Sodium Chloride 10 ml 08/31/17 09:00 Saline Flush IV BID [facility] Intake and Output 08/30/17 08/31/17 08/31/17 22:59 06:59 14:59 Intake Total 50 Output Total 1925 Balance -1875 Intake: Intake, IV Titration 50 Amount Piperacillin-Tazobactam 3 50 .375 gm In Dextrose/Water 1 50ml.bag @ 12.5 mls/hr IVPB ONCE STA Rx#: [id number] Output: Urine 1925 Other: Voiding Method Indwelling Catheter Weight 78.653 kg 76 kg 08/30/17 21:33 08/30/17 21:33 EKG Interpretations (text) EKG shows atrial fibrillation with a right bundle branch block pattern. Assessment and Plan Plan: Assessment and plan #1 systolic congestive heart failure acute on chronic #2 known history of coronary artery disease with prior bypass surgery #3 chronic persistent atrial fibrillation, not on anticoagulation because of history of GI bleeding #3 history of valve replacement #4 COPD #5 hypertension #6 hyperlipidemia #7 acute on chronic kidney disease #8 abnormal troponin, likely secondary to abnormal renal function. #9 anemia Plan We will start the patient on IV Lasix drip, continue to closely monitor intake and along with daily weights and daily lytes BUN and creatinine. Patient may also benefit from blood transfusion and or Venofer. Patient is not currently on an XIANG inhibitor because of abnormal renal function. Echocardiogram with Doppler study was performed last month which revealed an ejection fraction of 35 -40%. Moderate to severe mitral regurg, severe tricuspid regurg, severe pulmonary hypertension. We will not repeat an echo on this admission. Continue Coreg. Overall prognosis guarded. Further recommendations to follow. DNP note has been reviewed, I agree with a documented findings and plan of care. Patient was seen and examined.
[2017-08-31 08:54] LABS: Anisocytosis Moderate; Basophils % (A) 0 %; Eosinophils % (A) 0 %; HCT 24.2 % (39.0-53.0); Hypochromasia Marked; Lymphocytes # (A) 0.2 k/uL (1.0-4.8); Lymphocytes % (A) 3 %; MCH 29.6 pg (25.0-35.0); MCHC 28.8 g/dL (31.0-37.0); MCV 102.7 fL (80.0-100.0); Macrocytosis Moderate; Monocytes # (A) 0.1 k/uL (0-1.0); Monocytes % (A) 2 %; Neutrophils # (A) 4.5 k/uL (1.3-7.7); Neutrophils % (A) 94 %; Platelet Count 225 k/uL (150-450); Poikilocytosis Slight; RBC 2.36 m/uL (4.30-5.90); RDW 20.4 % (11.5-15.5); WBC 4.8 k/uL (3.8-10.6)
[2017-08-31 08:58] LABS: Calcium 10.3 mg/dL (8.4-10.2); Potassium 3.6 mmol/L (3.5-5.1)
[2017-08-31] MEDS ORDERED: ASPIRIN 81 MG PO SCH (09:00)
[2017-08-31] MEDS ORDERED: BUMETANIDE 1 MG TAB PO SCH (09:00)
[2017-08-31 09:15] LABS: Polychromasia Present
[2017-08-31] MEDS: FUROSEMIDE 250 MG in SODIUM CHLORIDE 0.9% 225 ML IVP SCH (09:33)
[2017-08-31] MEDS: ASCORBIC ACID 500 MG TAB PO SCH ×4 (09:37→20:02)
[2017-08-31] MEDS: FOLIC ACID 1 MG TAB PO SCH ×2 (09:38→09:46)
[2017-08-31] MEDS: FERROUS SULFATE 325 MG TAB PO SCH ×2 (09:38→20:02)
[2017-08-31] MEDS: METOLAZONE 2.5 MG TAB PO SCH (09:38)
[2017-08-31] MEDS: CEFUROXIME 250 MG TAB PO SCH ×2 (09:38→20:02)
[2017-08-31] MEDS: POTASSIUM CHLORIDE ER 20 MEQ TAB.ER PO SCH (09:38)
[2017-08-31] MEDS: HEPARIN SODIUM,PORCINE 5,000 UNIT/ML 1 ML VIAL SQ SCH ×2 (09:38→20:02)
[2017-08-31] MEDS: POLYETHYLENE GLYCOL 3350 17 GM POWD.PACK PO SCH (09:39)
[2017-08-31] MEDS ORDERED: DARBEPOETIN ALFA 40 MCG/0.4 ML SYRINGE SQ SCH (11:30)
--- NOTE | 2017-08-31 11:30 | CONS ---
CONSULTATION REASON FOR CONSULT: Renal failure. HISTORY OF PRESENT ILLNESS: The patient is an 82-year-old male with history of CHF, ejection fraction 30% to 35% with moderate to severe mitral regurgitation and severe tricuspid regurgitation and pulmonary hypertension. The patient also has chronic A. Fib and COPD. He was admitted to the hospital with complaints of increased shortness of breath. He denied any fever or chills. He has had cough. There is increased lower extremity edema as well. The patient was recently discharged from the hospital where he was admitted for CHF exacerbation. His creatinine was at 1.9 mg/dL this admission. Previously he had been at about 2.1. His lowest creatinine was 1.6 on 08/22/2017. We have a creatinine of 2.4 in April of 2017. This morning patient states he feels like he is done with life and it sounds like he may be considering hospice care. This admission calcium was at 10.9 yesterday. It is at 10.3 now. Troponin has been at 0.8. ProBNP was 29,000. Patient has received IV Lasix. He states he is feeling somewhat better and he has been evaluated by Cardiology and started on a Lasix drip. Blood pressure is not significantly low, systolic blood pressure around 120 mmHg. PAST MEDICAL HISTORY: Significant for CHF, cardiomyopathy, ejection fraction 30% to 35%. 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 Fib, not on anticoagulation because of GI bleed, severe pulmonary hypertension and severe tricuspid regurgitation, moderate to severe mitral regurgitation. PAST SURGICAL HISTORY: Coronary artery bypass surgery, cardiac catheterization, cholecystectomy, history of renal artery stenting, bilateral carotid endarterectomies. SOCIAL HISTORY: Patient is a former smoker. No history of drug abuse or alcohol abuse. MEDICATIONS: Medications at home prior to admission included vitamin C, aspirin, Dulcolax, PhosLo, Coreg, Ceftin, iron, magnesium, Zaroxolyn, Nitrostat, MiraLAX, potassium. PHYSICAL EXAMINATION: On examination, patient is comfortable, awake. He is not in any acute distress. He is alert and oriented x3. Blood pressure is 115/58, heart rate 75 per minute. He is afebrile. EXAMINATION OF THE HEART: S1, S2. EXAMINATION OF THE LUNGS: Bilateral breath sounds are heard. Abdomen is soft, nontender. Examination of lower extremities shows edema 2+ bilaterally. PROMOTIONAL MODEL exam is grossly intact. Patient is moving all 4 extremities. No major skin rash is noted. LABS: Labs reveal sodium of 140, potassium 3.6, chloride 91, BUN 99, serum creatinine 1.9. Hemoglobin 7.0 g/dL. UA shows no blood or protein, WBCs 19, hyaline casts 10. ASSESSMENT: 1. Acute kidney injury, cardiorenal, currently nonoliguric. Continue with the Lasix drip. I agree with starting aggressive diuresis. If urine output remains low and patient does not diurese well we may need to start dobutamine. He is also quite anemic and correction of anemia will help with the congestive heart failure as well. 2. Chronic kidney disease, NKF stage 3B to 4 secondary to nephrosclerosis and cardiorenal syndrome. Baseline creatinine appears to be around 2 mg/dL. However, we did have a lowest creatinine of 1.6 on 08/22/2017, but patient may have been volume overloaded at that time and this may not have been his accurate reflection of his renal function. 3. Hypercalcemia contributing to the acute kidney injury. The patient is not on any calcium supplements and I do not see any vitamin D supplements prior to hospitalization. I will check a PTH level, vitamin D, serum and urine immunofixation given the anemia and advanced age to rule out underlying myeloma. Previously calcium was not elevated. His last calcium was 9.8 on 2017. 4. Anemia with severe iron deficiency with iron saturation of only 8%. We will start IV iron. I will also add Aranesp. No active bleeding is noted. Will check stool for occult blood. 5. Congestive heart failure, acute on top of chronic, mainly systolic ejection fraction 30% to 35%. Continue with the Lasix drip. PLAN: Continue aggressive diuresis, may need inotropic agents like dobutamine. We will try and correct the anemia to help with the CHF exacerbation as well. I will start the patient on iron and erythrocyte-stimulating agents in the form of Aranesp. We will check a PTH level, vitamin D level, serum and urine immunofixation for the hypercalcemia and we will repeat labs in a.m. He may need a small dose of Diamox if the metabolic alkalosis worsens secondary to the diuresis. Thank you for this consultation. We will continue to follow the patient with you during his hospitalization. Off note, patient did admit that he is ready to give up and he feels he is done with life. We will need further discussion regarding code status and long-term prognosis. ELLIS / PAYTON: [id number] / MTDD
[2017-08-31] MEDS ORDERED: NITROGLYCERIN SL TABS 0.4 MG TAB SUBLINGUAL PRN (12:33)
[2017-08-31] MEDS ORDERED: NA PHOS,M-B/NA PHOS,DI-BA 133 ML ENEMA RECTAL PRN (12:33)
[2017-08-31] MEDS ORDERED: BISACODYL 10 MG SUPP RECTAL PRN (12:33)
[2017-08-31 14:22] VITALS: BMI 24.0
--- NOTE | 2017-08-31 14:34 | P.HPIM ---
History of Present Illness 82-year-old gentleman who was just discharged from the hospital on the sixth of this month, in the hospital at that time with congestive cardiac failure, he was discharged to [facility], readmitted on this occasion with symptoms of worsening shortness of breath with associated weakness. Patient has a known history of coronary artery disease with prior bypass surgery, hyperlipidemia, renal insufficiency, chronic persistent atrial fibrillation, not on anticoagulation because of history of GI bleed, congestive cardiac failure, COPD, hypertension. His EKG on admission showed atrial fibrillation with a right bundle branch block pattern. Chest x-ray showed bibasilar infiltrates, atelectasis or pneumonia could be considered at the right base. patient was hypoxic with saturations extremely low patient was started on IV Lasix drip with improved respiratory status. His previous ejection fraction being 30-35% Review of Systems REVIEW OF SYSTEMS: CONSTITUTIONAL: No fever, no malaise, no fatigue. HEENT: No recent visual problems or hearing problems. Denied any sore throat. CARDIOVASCULAR: No chest pain, no palpitations, no syncope. PULMONARY: No , no cough, no hemoptysis. GASTROINTESTINAL: No diarrhea, no nausea, no vomiting, no abdominal pain. Normoactive bowel sounds. NEUROLOGICAL: No headaches, no weakness, no numbness. HEMATOLOGICAL: Denies any bleeding or petechiae. GENITOURINARY: Denies any burning micturition, frequency, or urgency. MUSCULOSKELETAL/RHEUMATOLOGICAL: Denies any joint pain, swelling, or any muscle pain. ENDOCRINE: Denies any polyuria or polydipsia. The rest of the 14-point review of systems is negative. Past Medical History Past Medical History: Coronary Artery Disease (CAD), Heart Failure, COPD, Hyperlipidemia, Hypertension, Myocardial Infarction ([place]), Osteoarthritis (OA), Renal Disease Additional Past Medical History / Comment(s): Coronary artery disease, coronary artery bypass surgery, chronic atrial fibrillation, congestion heart failure with an ejection fraction of 30-35%, valvular heart disease with moderate to severe mitral regurgitation and severe tricuspid regurgitation and severe pulmonary hypertension, chronic lower oximetry edema, chronic pleural effusions , hypertension, hyperlipidemia, chronic renal failure, degenerative arthritis, gout, chronic back pain, chronic anemia, history of fall and closed head injury today that, COPD Last Myocardial Infarction Date:: unk History of Any Multi-Drug Resistant Organisms: None Reported Past Surgical History: Cholecystectomy, Coronary Bypass/CABG, Heart Catheterization Additional Past Surgical History / Comment(s): coronary artery bypass surgery performed in [facility] back in the 1980s, cataract surgery, cardiac catheterization, stenting of the renal arteries, bilateral carotid endarterectomies, cholecystectomy, questionable history of valve replacement although this is not clear Past Anesthesia/Blood Transfusion Reactions: No Reported Reaction Additional Past Anesthesia/Blood Transfusion Reaction / Comment(s): blood transfusions-no reaction Past Psychological History: No Psychological Hx Reported Smoking Status: Former smoker Past Alcohol Use History: None Reported Additional Past Alcohol Use History / Comment(s): started smoking at age 10(1946 ), quit 1960 smoked 1 ppd Past Drug Use History: None Reported - Past Family History Mother Family Medical History: No Reported History Additional Family Medical History / Comment(s): " from natural causes" Father Family Medical History: Cancer Additional Family Medical History / Comment(s): rectal cancer Medications and Allergies Home Medications Medication Instructions Recorded Confirmed Type Atorvastatin [Lipitor] 20 mg PO DAILY@2100 05/10/17 08/31/17 History Calcium Acetate [PhosLo] 667 mg PO TID-W/MEALS 05/10/17 08/31/17 History Carvedilol [Coreg] 3.125 mg PO BID 05/10/17 08/31/17 History Ferrous Sulfate [Iron (65 MG 325 mg PO BID 05/10/17 08/31/17 History Elemental)] Folic Acid 1 mg PO DAILY@1700 05/10/17 08/31/17 History Nitroglycerin Sl Tabs [Nitrostat] 0.4 mg SUBLINGUAL Q5M PRN 05/10/17 08/31/17 History Polyethylene Glycol 3350 [Miralax] 17 gm PO DAILY 05/10/17 08/31/17 History Ascorbic Acid [Vitamin C] 500 mg PO TID 08/19/17 08/31/17 History Bumetanide 2 mg PO BID #0 08/28/17 08/31/17 Rx Cefuroxime [Ceftin] 250 mg PO BID #4 tablet 08/28/17 08/31/17 Rx HYDROcodone/APAP 5-325MG [[place] 1 tab PO Q6H PRN #20 tab 08/28/17 08/31/17 Rx 5-325] Ipratropium-Albuterol Nebulize 3 ml INHALATION RT-QID PRN 08/28/17 08/31/17 Rx [Duoneb 0.5 mg-3 mg/3 ml Soln] ampul.neb Metolazone [Zaroxolyn] 2.5 mg PO DAILY tab 08/28/17 08/31/17 Rx Aspirin EC [Ecotrin Low Dose] 81 mg PO DAILY@1700 08/31/17 08/31/17 History Bisacodyl [Dulcolax] 10 mg RECTAL DAILY PRN 08/31/17 08/31/17 History Magnesium Hydroxide [Milk of 2,400 mg PO DAILY PRN 08/31/17 08/31/17 History Magnesia] Na Phos,M-B/Na Phos,Di-Ba [Fleet 133 ml RECTAL DAILY PRN 08/31/17 08/31/17 History Adult] Potassium Chloride ER [K-Dur 20] 20 meq PO DAILY@1700 08/31/17 08/31/17 History Allergies Allergy/AdvReac Type Severity Reaction Status Date / Time No Known Allergies Allergy Verified 08/31/17 08:14 Physical Exam Vitals: Vital Signs Temp Pulse Pulse Resp BP BP Pulse Ox 08/31/17 11:52 96.6 F L 70 16 113/55 93 L 08/31/17 11:22 97.5 F L 72 16 108/45 98 08/31/17 11:12 97.3 F L 74 16 109/47 93 L 08/31/17 08:45 97 F L 75 16 115/58 91 L 08/31/17 04:00 97 F L 79 18 128/59 95 08/31/17 00:30 18 08/30/17 23:50 96.8 F L 71 18 123/62 96 08/30/17 22:35 72 18 127/62 100 08/30/17 21:55 73 20 146/64 100 08/30/17 21:40 69 25 H 111/59 100 08/30/17 21:16 96.9 F L 80 24 112/52 89 L Intake and Output 08/30/17 08/31/17 08/31/17 22:59 06:59 14:59 Intake Total 50 0 Output Total 1925 Balance -1875 0 Intake: Intake, IV Titration 50 Amount Piperacillin-Tazobactam 3 50 .375 gm In Dextrose/Water 1 50ml.bag @ 12.5 mls/hr IVPB ONCE STA Rx#: [id number] Blood Product 0 Rc As-1 Unit 0 [id number] Output: Urine 1925 Other: Voiding Method Indwelling Catheter Weight 78.653 kg 76 kg 76 kg PHYSICAL EXAMINATION: GENERAL: The patient is alert and oriented x3, not in any acute distress. Well developed, well nourished. HEENT: Pupils are round and equally reacting to light. EOMI. No scleral icterus. No conjunctival pallor. Normocephalic, atraumatic. No pharyngeal erythema. No thyromegaly. CARDIOVASCULAR: S1 and S2 present. No murmurs, rubs, . patient does have significant elevated JVD along with S3 PULMONARY:crackles minimal were appreciated ABDOMEN: Soft, nontender, nondistended, normoactive bowel sounds. No palpable organomegaly. MUSCULOSKELETAL: No joint swelling or deformity. EXTREMITIES: No cyanosis, clubbing, or pedal edema. NEUROLOGICAL: Gross neurological examination did not reveal any focal deficits. SKIN: No rashes. Results CBC & Chem 7: 08/31/17 06:20 08/31/17 06:20 Labs: Abnormal Lab Results - Last 24 Hours (Table) 08/30/17 08/30/17 08/30/17 Range/Units 21:33 21:33 21:33 RBC 2.43 L (4.30-5.90) m/uL Hgb 7.3 L (13.0-17.5) gm/dL Hct 24.3 L (39.0-53.0) % MCV (80.0-100.0) fL MCHC 30.2 L (31.0-37.0) g/dL RDW 20.2 H (11.5-15.5) % Lymphocytes # 0.5 L (1.0-4.8) k/uL Chloride 93 L (98-107) mmol/L Carbon Dioxide 36 H (22-30) mmol/L BUN 99 H* (9-20) mg/dL Creatinine 1.90 H (0.66-1.25) mg/dL Glucose 106 H (74-99) mg/dL Calcium 10.9 H (8.4-10.2) mg/dL Magnesium 2.6 H (1.6-2.3) mg/dL Troponin I 0.118 H* (0.000-0.034) ng/mL Total Protein 5.7 L (6.3-8.2) g/dL Albumin 3.0 L (3.5-5.0) g/dL Ur Leukocyte Esterase (Negative) Urine WBC (0-5) /hpf Hyaline Casts (0-2) /lpf Urine Mucus (None) /hpf Crossmatch 08/30/17 08/31/17 08/31/17 Range/Units 21:35 03:04 03:04 RBC (4.30-5.90) m/uL Hgb (13.0-17.5) gm/dL Hct (39.0-53.0) % MCV (80.0-100.0) fL MCHC (31.0-37.0) g/dL RDW (11.5-15.5) % Lymphocytes # (1.0-4.8) k/uL Chloride (98-107) mmol/L Carbon Dioxide (22-30) mmol/L BUN (9-20) mg/dL Creatinine (0.66-1.25) mg/dL Glucose (74-99) mg/dL Calcium (8.4-10.2) mg/dL Magnesium (1.6-2.3) mg/dL Troponin I 0.097 H* (0.000-0.034) ng/mL Total Protein (6.3-8.2) g/dL Albumin (3.5-5.0) g/dL Ur Leukocyte Esterase Large H (Negative) Urine WBC 19 H (0-5) /hpf Hyaline Casts 10 H (0-2) /lpf Urine Mucus Rare H (None) /hpf Crossmatch See Detail 08/31/17 08/31/17 08/31/17 Range/Units 06:20 06:20 06:20 RBC 2.36 L (4.30-5.90) m/uL Hgb 7.0 L* (13.0-17.5) gm/dL Hct 24.2 L (39.0-53.0) % MCV 102.7 H (80.0-100.0) fL MCHC 28.8 L (31.0-37.0) g/dL RDW 20.4 H (11.5-15.5) % Lymphocytes # 0.2 L (1.0-4.8) k/uL Chloride 91 L (98-107) mmol/L Carbon Dioxide 38 H (22-30) mmol/L BUN 99 H* (9-20) mg/dL Creatinine 1.99 H (0.66-1.25) mg/dL Glucose 135 H (74-99) mg/dL Calcium 10.3 H (8.4-10.2) mg/dL Magnesium (1.6-2.3) mg/dL Troponin I 0.088 H* (0.000-0.034) ng/mL Total Protein (6.3-8.2) g/dL Albumin (3.5-5.0) g/dL Ur Leukocyte Esterase (Negative) Urine WBC (0-5) /hpf Hyaline Casts (0-2) /lpf Urine Mucus (None) /hpf Crossmatch Thrombosis Risk Factor Assmnt - Choose All That Apply Any of the Below Risk Factors Present?: Yes Each Factor Represents 1 point: Abnormal pulmonary function (COPD), Heart failure (<1month), Medical pt on bed rest, Swollen legs (current) Other Risk Factors: Yes Each Risk Factor Represents 3 Points: Age 75 years or older Thrombosis Risk Factor Assessment Total Risk Factor Score: 7 Thrombosis Risk Factor Assessment Level: High Risk Assessment and Plan Plan: -acute hypoxic respiratory failure: Secondary to can start failure exacerbation patient on IV Lasix drip continue to monitor basic metabolic profile patient's creatinine is 1.9 baseline is around 1.9. -Can start failure chronic systolic dysfunction with acute exacerbation -chronic kidney disease stage IV secondary tohypertensive nephrosclerosis with contribution from can start failure patient may have some prerenal azotemia and acute renal failure from CHF exacerbation expected to improve with IV Lasix -Anemia of chronic disease: Secondary to chronic kidney disease patient is receiving erythropoietin patient ferritin is extremely low and patient is on IV and supplementation does have elevated MCV will obtain a B12 level as well. -COPD without any significant exacerbation patient is on antibiotics from previous hospitalization which will be continued -Coronary artery disease next and-hypertension -Osteoarthritis For above-mentioned chronic medical problems patient will be resumed and continued on appropriate home medications.
[2017-08-31] MEDS: SODIUM FERRIC GLUCONAT-SUCROSE 125 MG in SODIUM CHLORIDE 0.9% 100 ML IVPB SCH (14:50)
[2017-08-31 15:52] LABS: Vitamin D 25 Hydroxy 29.2 ng/mL (30.0-100.0)
[2017-08-31 16:36] LABS: Parathyroid Hormone Intact 10.5 pg/mL (14.0-72.0)
[2017-08-31] MEDS: ASPIRIN 81 MG PO SCH (17:09)
[2017-08-31] MEDS: ATORVASTATIN 20 MG TAB PO SCH (20:02)
[2017-09-01] MEDS: CARVEDILOL 3.125 MG TAB PO SCH ×2 (06:57→17:22)
[2017-09-01] MEDS: CALCIUM ACETATE 667 MG CAP PO SCH ×3 (06:57→17:22)
[2017-09-01] MEDS: FUROSEMIDE 250 MG in SODIUM CHLORIDE 0.9% 225 ML IVP SCH (06:57)
[2017-09-01] MEDS: POLYETHYLENE GLYCOL 3350 17 GM POWD.PACK PO SCH (08:31)
[2017-09-01] MEDS: ASCORBIC ACID 500 MG TAB PO SCH ×3 (08:31→20:59)
[2017-09-01] MEDS: POTASSIUM CHLORIDE ER 20 MEQ TAB.ER PO SCH (08:32)
[2017-09-01] MEDS: FERROUS SULFATE 325 MG TAB PO SCH ×2 (08:32→20:59)
[2017-09-01] MEDS: HEPARIN SODIUM,PORCINE 5,000 UNIT/ML 1 ML VIAL SQ SCH ×2 (08:32→20:59)
[2017-09-01] MEDS: CEFUROXIME 250 MG TAB PO SCH ×2 (08:32→20:59)
[2017-09-01] MEDS: METOLAZONE 2.5 MG TAB PO SCH (08:32)
[2017-09-01] MEDS: FOLIC ACID 1 MG TAB PO SCH (08:32)
[2017-09-01] MEDS: SODIUM FERRIC GLUCONAT-SUCROSE 125 MG in SODIUM CHLORIDE 0.9% 100 ML IVPB SCH (08:42)
[2017-09-01 09:52] LABS: Anisocytosis Moderate; Basophils % (A) 0 %; Eosinophils % (A) 0 %; HCT 26.3 % (39.0-53.0); HGB 7.6 gm/dL (13.0-17.5); Hypochromasia Marked; Lymphocytes # (A) 0.3 k/uL (1.0-4.8); Lymphocytes % (A) 3 %; MCV 99.8 fL (80.0-100.0); Macrocytosis Moderate; Mean Platelet Volume 9.3; Monocytes # (A) 0.5 k/uL (0-1.0); Monocytes % (A) 6 %; Neutrophils # (A) 8.5 k/uL (1.3-7.7); Neutrophils % (A) 90 %; Platelet Count 233 k/uL (150-450); Poikilocytosis Moderate; RBC 2.63 m/uL (4.30-5.90); WBC 9.4 k/uL (3.8-10.6)
[2017-09-01 10:20] LABS: Calcium 10.3 mg/dL (8.4-10.2); Potassium 3.1 mmol/L (3.5-5.1)
[2017-09-01] MEDS: IPRATROPIUM-ALBUTEROL 3 ML NEB INHALATION PRN ×2 (11:02→19:43)
[2017-09-01] MEDS ORDERED: POTASSIUM CHLORIDE ER 20 MEQ TAB.ER PO STA ×2 (12:38)
--- NOTE | 2017-09-01 13:06 | P.PN ---
Subjective Progress Note Date: 09/01/17 Principal diagnosis: CHF This is a pleasant 82-year-old gentleman who was just discharged from the hospital on the sixth of this month, in the hospital at that time with congestive cardiac failure, he was discharged to [facility], readmitted on this occasion with symptoms of worsening shortness of breath with associated weakness. Patient has a known history of coronary artery disease with prior bypass surgery, hyperlipidemia, renal insufficiency, chronic persistent atrial fibrillation, not on anticoagulation because of history of GI bleed, congestive cardiac failure, COPD, hypertension. His EKG on admission showed atrial fibrillation with a right bundle branch block pattern. Chest x-ray showed bibasilar infiltrates, atelectasis or pneumonia could be considered at the right base. Left base has improved. Blood pressure 128/60 with a heart rate in the 70s, afebrile. Oxygen saturation on admission 89% on BiPAP this morning 95% on 4 L. White blood cell count 6.7, hemoglobin 7.3, platelet count 248. Sodium 141, potassium 3.9, BUN 99, creatinine 1.9. Troponin 0.11, 0.09, 0.08. BNP level 29,100. Echo with Doppler study was done on this recent admission which revealed an ejection fraction of 35-40%. Moderate to severe MR, severe TR , severe pulmonary hypertension. Patient was given one dose of IV Lasix in the emergency room, diuresed well from that. At the time of my examination this morning, feeling extremely weak, mildly short of breath, however he states not any more significant than his usual. 09/01/2017 Patient seen and examined this morning, significantly improved from yesterday. Weight is down 3 kg today. Patient did receive a blood transfusion as well as IV iron transfusion. White blood cell count 9.4, hemoglobin 7.6, platelet count 233. Sodium 141, potassium 3.1, BUN 109, creatinine 2.2. Objective - Vital Signs Vital signs: Vital Signs Temp 97 F L 09/01/17 07:55 Pulse 77 09/01/17 11:20 Resp 16 09/01/17 11:20 BP 123/62 09/01/17 11:20 Pulse Ox 93 L 09/01/17 11:20 Intake & Output 08/31/17 09/01/17 09/01/17 18:59 06:59 18:59 Intake Total 550 0 364 Output Total 850 1800 700 Balance -300 -1800 -336 Weight 76 kg 73.5 kg Intake: Intake, IV Titration 0 Amount Furosemide 250 mg In 0 Sodium Chloride 0.9% 225 ml @ 10 MG/HR 10 mls/hr IVP .Q24H [facility] Rx#: [id number] Oral 240 364 Blood Product 310 Rc As-1 Unit 310 [id number] Output: Urine 850 1800 700 Other: Voiding Method Indwelling Catheter Indwelling Catheter Indwelling Catheter - Exam PHYSICAL EXAMINATION: HEENT: Head is atraumatic, normocephalic. Pupils equal, round. Neck is supple. There is elevated jugular venous pressure. HEART EXAMINATION: Heart S1 and S2 irregularly irregular a systolic ejection murmur is heard. CHEST EXAMINATION: Lungs are clear with diminished air entry to bilateral bases. ABDOMEN: Soft, mild tenderness in the right upper quadrant . Bowel sounds are heard. No organomegaly noted. EXTREMITIES: 1+ peripheral pulses with 2+ bilateral peripheral edema. NEUROLOGIC patient is awake, alert and oriented -3. . - Labs CBC & Chem 7: 09/01/17 09:21 09/01/17 09:21 Labs: Abnormal Lab Results - Last 24 Hours (Table) 08/30/17 08/31/17 08/31/17 Range/Units 21:33 03:04 06:20 RBC (4.30-5.90) m/uL Hgb (13.0-17.5) gm/dL Hct (39.0-53.0) % MCHC (31.0-37.0) g/dL RDW (11.5-15.5) % Neutrophils # (1.3-7.7) k/uL Lymphocytes # (1.0-4.8) k/uL Potassium (3.5-5.1) mmol/L Chloride (98-107) mmol/L Carbon Dioxide (22-30) mmol/L BUN (9-20) mg/dL Creatinine (0.66-1.25) mg/dL Glucose (74-99) mg/dL Calcium (8.4-10.2) mg/dL Vitamin B12 2177.0 H (200.0-944.0) pg/mL Vitamin D 25-Hydroxy 29.2 L (30.0-100.0) ng/mL PTH Intact 10.5 L (14.0-72.0) pg/mL Crossmatch See Detail 09/01/17 09/01/17 Range/Units 09:21 09:21 RBC 2.63 L (4.30-5.90) m/uL Hgb 7.6 L (13.0-17.5) gm/dL Hct 26.3 L (39.0-53.0) % MCHC 29.0 L (31.0-37.0) g/dL RDW 22.0 H (11.5-15.5) % Neutrophils # 8.5 H (1.3-7.7) k/uL Lymphocytes # 0.3 L (1.0-4.8) k/uL Potassium 3.1 L (3.5-5.1) mmol/L Chloride 88 L (98-107) mmol/L Carbon Dioxide 39 H (22-30) mmol/L BUN 109 H* (9-20) mg/dL Creatinine 2.20 H (0.66-1.25) mg/dL Glucose 191 H (74-99) mg/dL Calcium 10.3 H (8.4-10.2) mg/dL Vitamin B12 (200.0-944.0) pg/mL Vitamin D 25-Hydroxy (30.0-100.0) ng/mL PTH Intact (14.0-72.0) pg/mL Crossmatch Microbiology - Last 24 Hours (Table) 08/30/17 21:23 Blood Culture - Preliminary Blood No Growth after 24 hours Assessment and Plan Plan: Assessment and plan #1 systolic congestive heart failure acute on chronic #2 known history of coronary artery disease with prior bypass surgery #3 chronic persistent atrial fibrillation, not on anticoagulation because of history of GI bleeding #3 history of valve replacement #4 COPD #5 hypertension #6 hyperlipidemia #7 acute on chronic kidney disease #8 abnormal troponin, likely secondary to abnormal renal function. #9 anemia Plan From cardiology's perspective, we will continue Lasix drip for 24 hours, patient may benefit from another blood transfusion. We will continue to monitor intake and output along with daily weights and daily lytes BUN and creatinine. DNP note has been reviewed, I agree with a documented findings and plan of care. Patient was seen and examined.
--- NOTE | 2017-09-01 13:33 | CDI ---
Last Revision, April 2017 Documentation Clarification Form Date: September 01, 2017 From: Sofie Cole Admit Date: 08/30/2017 10:58:00 PM Patient Name: Donald Schaffer Visit Number: [id number] ATTENTION: The Clinical Documentation Specialists (CDI) and [facility] Coding Staff appreciate your assistance in clarifying documentation. Please respond to the clarification below the line at the bottom and electronically sign. The CDI & [facility] Coding staff will review the response and follow-up if needed. Please note: Queries are made part of the Legal Health Record. If you have any questions, please contact the author of this message via ITS. Dr. Kori Richardson, Documentation of COPD is located in the H&P on 08/31. History/Risk Factors: cad, cabg, chronic a fib, chf, severe pulmonary htn, chronic lower extremity edema, chronic pleural effusions, htn, hyperlipidemia, chronic renal failure, degernerative arthritis, gout, chronic back pain, chronic anemia, falls copd, Presented with acute exacerbation of CHF and acute hypoxic respiratory failure. Pt put on bipap Clinical Indicators: CXR: bibasilar infiltrates. atelectasis or pneumonia Vital Signs on admission:T 96.9, P 80, R 24, 112/52, 89% BIBPAP Treatment: Nebulizers: Duoneb Antibiotics: IV Piperacillin bipap on admission, 4L 08/31 In your professional opinion, can you please clarify if the above findings and treatment signify any of the following? Acute Exacerbation of Chronic Obstructive Pulmonary Disease (COPD) Acute on Chronic Obstructive Asthma Acute on chronic bronchitis Chronic obstructive pulmonary disease with acute lower respiratory infection Other condition, please specify Unable to determine Plea se continue to document in your progress notes, under the line below and/ or in the discharge summary in order to capture severity of illness and risk of mortality. Include clinical findings that support your diagnosis. None of peri RICCI
[2017-09-01] MEDS: ASPIRIN 81 MG PO SCH (17:22)
--- NOTE | 2017-09-01 20:31 | PN ---
PROGRESS NOTE Patient is seen for followup for acute kidney injury, mainly cardiorenal. He was admitted with CHF and fluid overload, currently maintained on Lasix drip, to which he has responded fairly well. Weight is down by about 3 kg. Patient has had good urine output, about 2.6 L over 24 hours. On examination, blood pressure is 125/53, heart rate 87 per minute. He is afebrile. EXAMINATION OF THE HEART: S1, S2. EXAMINATION OF LUNGS: Decreased breath sounds at bases with minimal basal crackles. ABDOMEN: Soft, non-tender. Examination of lower extremities shows edema 2+ bilaterally. Labs show sodium 141, potassium 3.1, BUN 109, serum creatinine 2.2 mg/dL. Hemoglobin 7.6 g/dL. ASSESSMENT: 1. Acute kidney injury, mainly cardiorenal; serum creatinine slightly higher compared to yesterday. I will continue with the Lasix drip for now and repeat labs in a.m. Patient is not on any other nephrotoxic medications. 2. Chronic kidney disease, stage IV, secondary to nephrosclerosis and cardiorenal state; renal function not too far from baseline. 3. Chronic kidney disease mineral bone disorder, maintained on PhosLo. 4. Anemia with severe iron deficiency, currently on IV iron as well as Aranesp. No active bleeding noted. Hemoglobin is slightly better. 5. Hypokalemia secondary to diuresis, currently being replaced. 6. Hypercalcemia, now improved. PTH was appropriately low at 10.5. Vitamin D is not elevated. Since the calcium has improved, I will continue to monitor for now. No paraprotein noted on the serum immunofixation. 7. Severe cardiomyopathy, ejection fraction about 20%. 8. Congestive heart failure, acute on top of chronic, mainly systolic. PLAN: Continue with Lasix. Continue IV iron. Replace potassium and repeat labs in a.m. Overall prognosis is guarded. MMODL / IJN: [id number] /
[2017-09-01] MEDS: ATORVASTATIN 20 MG TAB PO SCH (20:59)
[2017-09-02] MEDS: FUROSEMIDE 250 MG in SODIUM CHLORIDE 0.9% 225 ML IVP SCH (06:51)
[2017-09-02] MEDS: CARVEDILOL 3.125 MG TAB PO SCH ×2 (06:52→17:27)
[2017-09-02] MEDS: CALCIUM ACETATE 667 MG CAP PO SCH ×3 (06:52→17:27)
[2017-09-02 08:28] LABS: Anisocytosis Moderate; HCT 26.2 % (39.0-53.0); HGB 7.9 gm/dL (13.0-17.5); Hypochromasia Marked; MCH 29.9 pg (25.0-35.0); MCV 99.7 fL (80.0-100.0); Macrocytosis Moderate; Mean Platelet Volume 8.8; Platelet Count 232 k/uL (150-450); Poikilocytosis Moderate; RBC 2.63 m/uL (4.30-5.90); RDW 21.3 % (11.5-15.5); WBC 9.4 k/uL (3.8-10.6)
[2017-09-02 08:58] LABS: Calcium 11.1 mg/dL (8.4-10.2); Potassium 3.5 mmol/L (3.5-5.1)
[2017-09-02] MEDS: FOLIC ACID 1 MG TAB PO SCH (09:44)
[2017-09-02] MEDS: METOLAZONE 2.5 MG TAB PO SCH (09:44)
[2017-09-02] MEDS: POTASSIUM CHLORIDE ER 20 MEQ TAB.ER PO SCH (09:44)
[2017-09-02] MEDS: HEPARIN SODIUM,PORCINE 5,000 UNIT/ML 1 ML VIAL SQ SCH ×2 (09:44→19:52)
[2017-09-02] MEDS: FERROUS SULFATE 325 MG TAB PO SCH ×2 (09:44→19:51)
[2017-09-02] MEDS: POLYETHYLENE GLYCOL 3350 17 GM POWD.PACK PO SCH (09:44)
[2017-09-02] MEDS: CEFUROXIME 250 MG TAB PO SCH ×2 (09:44→19:51)
[2017-09-02] MEDS: ASCORBIC ACID 500 MG TAB PO SCH ×3 (09:44→19:52)
[2017-09-02] MEDS: SODIUM FERRIC GLUCONAT-SUCROSE 125 MG in SODIUM CHLORIDE 0.9% 100 ML IVPB SCH (09:55)
--- NOTE | 2017-09-02 11:53 | P.PN ---
Subjective Progress Note Date: 09/02/17 Principal diagnosis: CHF This is a pleasant 82-year-old gentleman who was just discharged from the hospital on the sixth of this month, in the hospital at that time with congestive cardiac failure, he was discharged to [facility], readmitted on this occasion with symptoms of worsening shortness of breath with associated weakness. Patient has a known history of coronary artery disease with prior bypass surgery, hyperlipidemia, renal insufficiency, chronic persistent atrial fibrillation, not on anticoagulation because of history of GI bleed, congestive cardiac failure, COPD, hypertension. His EKG on admission showed atrial fibrillation with a right bundle branch block pattern. Chest x-ray showed bibasilar infiltrates, atelectasis or pneumonia could be considered at the right base. Left base has improved. Blood pressure 128/60 with a heart rate in the 70s, afebrile. Oxygen saturation on admission 89% on BiPAP this morning 95% on 4 L. White blood cell count 6.7, hemoglobin 7.3, platelet count 248. Sodium 141, potassium 3.9, BUN 99, creatinine 1.9. Troponin 0.11, 0.09, 0.08. BNP level 29,100. Echo with Doppler study was done on this recent admission which revealed an ejection fraction of 35-40%. Moderate to severe MR, severe TR , severe pulmonary hypertension. Patient was given one dose of IV Lasix in the emergency room, diuresed well from that. At the time of my examination this morning, feeling extremely weak, mildly short of breath, however he states not any more significant than his usual. 09/01/2017 Patient seen and examined this morning, significantly improved from yesterday. Weight is down 3 kg today. Patient did receive a blood transfusion as well as IV iron transfusion. White blood cell count 9.4, hemoglobin 7.6, platelet count 233. Sodium 141, potassium 3.1, BUN 109, creatinine 2.2. 09/02/2017 Patient seen and examined this morning, again feeling significantly better today. Hemoglobin today is 7.9, sodium 142, potassium 53.5, BUN 117, creatinine 2.2. Diuresed well through the night on IV Lasix drip. Patient was seen by nephrology this morning, Lasix drip was discontinued and patient will be initiated on Diamox. We'll repeat a chest x-ray as well today. Objective - Vital Signs Vital signs: Vital Signs Temp 97.3 F L 09/02/17 08:00 Pulse 70 09/02/17 08:00 Resp 20 09/02/17 08:00 BP 119/48 09/02/17 08:00 Pulse Ox 95 09/02/17 08:00 Intake & Output 09/01/17 09/02/17 09/02/17 18:59 06:59 18:59 Intake Total 544 674 340 Output Total 700 2550 Balance -156 -1876 340 Weight 73.5 kg Intake: IV 80 80 Furosemide 250 mg In 80 80 Sodium Chloride 0.9% 225 ml @ 10 MG/HR 10 mls/hr IVP .Q24H SHEILA Rx#: [id number] Intake, IV Titration 100 239 Amount Furosemide 250 mg In 239 Sodium Chloride 0.9% 225 ml @ 10 MG/HR 10 mls/hr IVP .Q24H SHEILA Rx#: [id number] Sodium Ferric Gluconat- 100 Sucrose 125 mg In Sodium Chloride 0.9% 100 ml @ 100 mls/hr IVPB DAILY SHEILA Rx#:[id number] Oral 364 355 340 Output: Urine 700 2550 Uretheral (Earl) 1600 Other: Voiding Method Indwelling Catheter Indwelling Catheter Indwelling Catheter # Bowel Movements 2 - Exam PHYSICAL EXAMINATION: HEENT: Head is atraumatic, normocephalic. Pupils equal, round. Neck is supple. There is elevated jugular venous pressure. HEART EXAMINATION: Heart S1 and S2 irregularly irregular a systolic ejection murmur is heard. CHEST EXAMINATION: Lungs are clear with diminished air entry to bilateral bases. ABDOMEN: Soft, mild tenderness in the right upper quadrant . Bowel sounds are heard. No organomegaly noted. EXTREMITIES: 1+ peripheral pulses with trace to 1+ bilateral peripheral edema. NEUROLOGIC patient is awake, alert and oriented -3. . - Labs CBC & Chem 7: 09/02/17 08:12 09/02/17 08:12 Labs: Abnormal Lab Results - Last 24 Hours (Table) 09/02/17 09/02/17 Range/Units 08:12 08:12 RBC 2.63 L (4.30-5.90) m/uL Hgb 7.9 L (13.0-17.5) gm/dL Hct 26.2 L (39.0-53.0) % MCHC 30.0 L (31.0-37.0) g/dL RDW 21.3 H (11.5-15.5) % Chloride 87 L (98-107) mmol/L Carbon Dioxide 44 H* (22-30) mmol/L BUN 117 H* (9-20) mg/dL Creatinine 2.23 H (0.66-1.25) mg/dL Glucose 141 H (74-99) mg/dL Calcium 11.1 H (8.4-10.2) mg/dL Microbiology - Last 24 Hours (Table) 08/30/17 21:23 Blood Culture - Preliminary Blood No Growth after 48 hours Assessment and Plan Plan: Assessment and plan #1 systolic congestive heart failure acute on chronic #2 known history of coronary artery disease with prior bypass surgery #3 chronic persistent atrial fibrillation, not on anticoagulation because of history of GI bleeding #3 history of valve replacement #4 COPD #5 hypertension #6 hyperlipidemia #7 acute on chronic kidney disease #8 abnormal troponin, likely secondary to abnormal renal function. #9 anemia Plan From cardiology's perspective, IV Lasix drip has been discontinued by nephrology and she is going to initiate Diamox today. Patient overall is doing significantly better. We will continue to follow. DNP note has been reviewed, I agree with a documented findings and plan of care. Patient was seen and examined.
--- NOTE | 2017-09-02 13:27 | P.PN ---
Subjective Progress Note Date: 09/01/17 82-year-old gentleman admitted for the can start failure exacerbation and patient is on the IV Lasix drip with significant improvement in pedal edema patient still feels the same. Objective - Vital Signs Vital signs: Vital Signs Temp 97.3 F L 09/02/17 08:00 Pulse 70 09/02/17 08:00 Resp 20 09/02/17 08:00 BP 119/48 09/02/17 08:00 Pulse Ox 95 09/02/17 08:00 Intake & Output 09/01/17 09/02/17 09/02/17 18:59 06:59 18:59 Intake Total 544 674 340 Output Total 700 2550 Balance -156 -1876 340 Weight 73.5 kg Intake: IV 80 80 Furosemide 250 mg In 80 80 Sodium Chloride 0.9% 225 ml @ 10 MG/HR 10 mls/hr IVP .Q24H SHEILA Rx#: [id number] Intake, IV Titration 100 239 Amount Furosemide 250 mg In 239 Sodium Chloride 0.9% 225 ml @ 10 MG/HR 10 mls/hr IVP .Q24H SHEILA Rx#: [id number] Sodium Ferric Gluconat- 100 Sucrose 125 mg In Sodium Chloride 0.9% 100 ml @ 100 mls/hr IVPB DAILY SHEILA Rx#:[id number] Oral 364 355 340 Output: Urine 700 2550 Uretheral (Earl) 1600 Other: Voiding Method Indwelling Catheter Indwelling Catheter Indwelling Catheter # Bowel Movements 2 - Exam PHYSICAL EXAMINATION: GENERAL: The patient is alert and oriented x3, not in any acute distress. Well developed, well nourished. HEENT: Pupils are round and equally reacting to light. EOMI. No scleral icterus. No conjunctival pallor. Normocephalic, atraumatic. No pharyngeal erythema. No thyromegaly. CARDIOVASCULAR: S1 and S2 present. No murmurs, rubs, . patient does have significant elevated JVD along with S3 PULMONARY:crackles minimal were appreciated ABDOMEN: Soft, nontender, nondistended, normoactive bowel sounds. No palpable organomegaly. MUSCULOSKELETAL: No joint swelling or deformity. EXTREMITIES: No cyanosis, clubbing. Pedal edema improved significantly. NEUROLOGICAL: Gross neurological examination did not reveal any focal deficits. SKIN: No rashes. - Labs CBC & Chem 7: 09/02/17 08:12 09/02/17 08:12 Labs: Abnormal Lab Results - Last 24 Hours (Table) 09/02/17 09/02/17 Range/Units 08:12 08:12 RBC 2.63 L (4.30-5.90) m/uL Hgb 7.9 L (13.0-17.5) gm/dL Hct 26.2 L (39.0-53.0) % MCHC 30.0 L (31.0-37.0) g/dL RDW 21.3 H (11.5-15.5) % Chloride 87 L (98-107) mmol/L Carbon Dioxide 44 H* (22-30) mmol/L BUN 117 H* (9-20) mg/dL Creatinine 2.23 H (0.66-1.25) mg/dL Glucose 141 H (74-99) mg/dL Calcium 11.1 H (8.4-10.2) mg/dL Microbiology - Last 24 Hours (Table) 08/30/17 21:23 Blood Culture - Preliminary Blood No Growth after 48 hours Assessment and Plan Plan: -acute hypoxic respiratory failure: Secondary to congestive heart failure exacerbation patient on IV Lasix drip continue to monitor basic metabolic profile creatinine baseline is around 1.9. Mild worsening in creatinine -Can start failure chronic systolic dysfunction with acute exacerbation -chronic kidney disease stage IV secondary tohypertensive nephrosclerosis with contribution from can start failure patient may have some prerenal azotemia and acute renal failure from CHF -Anemia of chronic disease: Secondary to chronic kidney disease patient is receiving erythropoietin patient ferritin is extremely low and patient is on IV and supplementation does have elevated MCV will obtain a B12 level as well. -COPD without any significant exacerbation patient is on antibiotics from previous hospitalization which will be continued -Coronary artery disease next and-hypertension -Osteoarthritis For above-mentioned chronic medical problems patient will be resumed and continued on appropriate home medications.
--- NOTE | 2017-09-02 13:28 | P.PN ---
Subjective 82-year-old gentleman admitted for the can start failure exacerbation and patient is on the IV Lasix drip with significant improvement in pedal edema patient still feels the same. 09/02/2017 Patient's respiratory status improved significantly patient the cecum any of some shortness of breath patient has mild worsening in creatinine. Patient is being followed by nephrology and cardiology. Constitutional: Denied any fatigue denied any fever. Cardio vascular: denied any chest pain, palpitations Gastrointestinal denied any nausea vomiting Pulmonary: As mentioned in the HPI Neurologic denied any new focal deficits Objective - Vital Signs Vital signs: Vital Signs Temp 97.3 F L 09/02/17 08:00 Pulse 70 09/02/17 08:00 Resp 20 09/02/17 08:00 BP 119/48 09/02/17 08:00 Pulse Ox 95 09/02/17 08:00 Intake & Output 09/01/17 09/02/17 09/02/17 18:59 06:59 18:59 Intake Total 544 674 340 Output Total 700 2550 Balance -156 -1876 340 Weight 73.5 kg Intake: IV 80 80 Furosemide 250 mg In 80 80 Sodium Chloride 0.9% 225 ml @ 10 MG/HR 10 mls/hr IVP .Q24H SHEILA Rx#: [id number] Intake, IV Titration 100 239 Amount Furosemide 250 mg In 239 Sodium Chloride 0.9% 225 ml @ 10 MG/HR 10 mls/hr IVP .Q24H SHEILA Rx#: [id number] Sodium Ferric Gluconat- 100 Sucrose 125 mg In Sodium Chloride 0.9% 100 ml @ 100 mls/hr IVPB DAILY SHEILA Rx#:[id number] Oral 364 355 340 Output: Urine 700 2550 Uretheral (Earl) 1600 Other: Voiding Method Indwelling Catheter Indwelling Catheter Indwelling Catheter # Bowel Movements 2 - Exam PHYSICAL EXAMINATION: GENERAL: The patient is alert and oriented x3, not in any acute distress. Well developed, well nourished. HEENT: Pupils are round and equally reacting to light. EOMI. No scleral icterus. No conjunctival pallor. Normocephalic, atraumatic. No pharyngeal erythema. No thyromegaly. CARDIOVASCULAR: S1 and S2 present. No murmurs, rubs, . Improved JVD PULMONARY:crackles minimal were appreciated ABDOMEN: Soft, nontender, nondistended, normoactive bowel sounds. No palpable organomegaly. MUSCULOSKELETAL: No joint swelling or deformity. EXTREMITIES: No cyanosis, clubbing. Pedal edema resolved NEUROLOGICAL: Gross neurological examination did not reveal any focal deficits. SKIN: No rashes. - Labs CBC & Chem 7: 09/02/17 08:12 09/02/17 08:12 Labs: Abnormal Lab Results - Last 24 Hours (Table) 09/02/17 09/02/17 Range/Units 08:12 08:12 RBC 2.63 L (4.30-5.90) m/uL Hgb 7.9 L (13.0-17.5) gm/dL Hct 26.2 L (39.0-53.0) % MCHC 30.0 L (31.0-37.0) g/dL RDW 21.3 H (11.5-15.5) % Chloride 87 L (98-107) mmol/L Carbon Dioxide 44 H* (22-30) mmol/L BUN 117 H* (9-20) mg/dL Creatinine 2.23 H (0.66-1.25) mg/dL Glucose 141 H (74-99) mg/dL Calcium 11.1 H (8.4-10.2) mg/dL Microbiology - Last 24 Hours (Table) 08/30/17 21:23 Blood Culture - Preliminary Blood No Growth after 48 hours Assessment and Plan Plan: -acute hypoxic respiratory failure: Secondary to congestive heart failure exacerbation patient on IV Lasix drip continue to monitor basic metabolic profile creatinine baseline is around 1.9. Mild worsening in creatinine -Can start failure chronic systolic dysfunction with acute exacerbation -chronic kidney disease stage IV secondary tohypertensive nephrosclerosis with contribution from can start failure patient may have some prerenal azotemia and acute renal failure from CHF -Anemia of chronic disease: Secondary to chronic kidney disease patient is receiving erythropoietin patient ferritin is extremely low and patient is on IV and supplementation does have elevated MCV will obtain a B12 level as well. -COPD without any significant exacerbation patient is on antibiotics from previous hospitalization which will be continued -Coronary artery disease next and-hypertension -Osteoarthritis For above-mentioned chronic medical problems patient will be resumed and continued on appropriate home medications.
--- NOTE | 2017-09-02 14:36 | XR ---
EXAMINATION TYPE: XR chest 2V DATE OF EXAM: 09/02/2017 COMPARISON: 08/30/2016 INDICATION: Follow-up CHF TECHNIQUE: Frontal and lateral views of the chest are obtained. FINDINGS: The heart size is normal. The pulmonary vasculature is normal. There is an infiltrate at the right base. Small bilateral pleural effusions are present.. IMPRESSION: 1. Resolving right lower lobe infiltrate. 2. Small bilateral pleural effusions.
[2017-09-02] MEDS: ASPIRIN 81 MG PO SCH (17:27)
[2017-09-02] MEDS: ATORVASTATIN 20 MG TAB PO SCH (19:51)
[2017-09-02] MEDS: FUROSEMIDE 10 MG/ML 4 ML VIAL IV SCH (23:13)
--- NOTE | 2017-09-03 05:08 | PN ---
PROGRESS NOTE Patient is seen for followup for acute kidney injury, which is mainly cardiorenal. Patient was admitted with severe CHF and fluid overload. He has been maintained on Lasix drip. He states he is feeling better. Renal function is about the same with creatinine at 2.2 mg/dL. However, his metabolic alkalosis has worsened. PHYSICAL EXAMINATION: On examination, blood pressure this morning was 119/48. The patient is afebrile. Heart rate 78 per minute. EXAMINATION OF THE HEART: S1 and S2. EXAMINATION OF THE LUNGS: Bilateral breath sounds are heard. Abdomen is soft, nontender. Examination of the lower extremities shows edema 2+ bilaterally, currently significantly improved. ROSE GROWER exam is grossly intact. LABS: The labs show sodium 142, potassium 3.5, hemoglobin 7.9, CO2 is 44, BUN 117, serum creatinine 2.23. Calcium is 11.1 mg/dL. ASSESSMENT: 1. Acute kidney injury mainly cardiorenal. Renal function fairly stable. I will discontinue the Lasix drip and switch to IV push Lasix. 2. Congestive heart failure, acute on top of chronic, mainly systolic, currently improved since admission. We will switch the Lasix to IV push and discontinue the drip. 3. Metabolic alkalosis secondary to diuresis. 4. Hypercalcemia with appropriately low PTH levels. Urine immunofixation is negative. Vitamin D level is not elevated. We will order a parathyroid hormone related protein to rule out any underlying malignancy. Currently patient is not on any medications to hypercalcemia. He may have a component of hypercalcemia of immobility since he has been in bed for a long time. 5. Anemia. No active bleeding noted. Iron deficiency was noted and patient is maintained on IV iron. 6. Iron deficiency, currently on IV iron. PLAN: Discontinue Lasix drip and switch to IV push Lasix. Repeat labs in a.m. and add Diamox. MMODL / IJN: [id number] /
[2017-09-03 06:11] LABS: Calcium 11.5 mg/dL (8.4-10.2); Potassium 3.7 mmol/L (3.5-5.1)
[2017-09-03] MEDS: CALCIUM ACETATE 667 MG CAP PO SCH (06:49)
[2017-09-03] MEDS: CARVEDILOL 3.125 MG TAB PO SCH ×2 (06:49→16:30)
--- NOTE | 2017-09-03 07:21 | XR ---
EXAMINATION TYPE: XR chest 1V portable DATE OF EXAM: 09/03/2017 CLINICAL HISTORY: Difficulty breathing and CHF progress study. TECHNIQUE: Single AP portable upright view of the chest is obtained. COMPARISON: Chest x-ray from one day earlier and older studies. 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 There is per sistent small bilateral lateral pleural effusions. New right midlung opacity likely reflects fluid in fissure. There is associated right-sided mid and basilar atelectasis and/or infiltrate. Upper lungs remain clear without pneumothorax seen bilaterally. Cardiac silhouette size is stable and mildly enla rged with atherosclerotic thoracic aorta. Osseous structures are intact. IMPRESSION: There is persistent cardiomegaly with small right greater than left pleural effusions. In creasing right-sided mid to basilar opacity noted suggesting possibly worsening effusion and/or assoc iated right mid to lower lung atelectasis and/or infiltrate from most recent x-ray.
[2017-09-03] MEDS: POLYETHYLENE GLYCOL 3350 17 GM POWD.PACK PO SCH (08:42)
[2017-09-03] MEDS: FUROSEMIDE 10 MG/ML 4 ML VIAL IV SCH (08:42)
[2017-09-03] MEDS: ASCORBIC ACID 500 MG TAB PO SCH ×3 (08:42→19:56)
[2017-09-03] MEDS: CEFUROXIME 250 MG TAB PO SCH (08:42)
[2017-09-03] MEDS: METOLAZONE 2.5 MG TAB PO SCH (08:42)
[2017-09-03] MEDS: HEPARIN SODIUM,PORCINE 5,000 UNIT/ML 1 ML VIAL SQ SCH ×2 (08:42→19:56)
[2017-09-03] MEDS: POTASSIUM CHLORIDE ER 20 MEQ TAB.ER PO SCH (08:42)
[2017-09-03] MEDS: FOLIC ACID 1 MG TAB PO SCH (08:42)
[2017-09-03] MEDS: FERROUS SULFATE 325 MG TAB PO SCH ×2 (08:42→19:56)
[2017-09-03] MEDS: SODIUM FERRIC GLUCONAT-SUCROSE 125 MG in SODIUM CHLORIDE 0.9% 100 ML IVPB SCH (09:02)
[2017-09-03] MEDS ORDERED: SODIUM CHLORIDE 0.9% 250 ML with PAMIDRONATE 30 MG IV ONE ×2 (10:29)
--- NOTE | 2017-09-03 11:21 | PN ---
PROGRESS NOTE The patient is seen for followup for acute kidney injury mainly cardiorenal. He was maintained on Lasix drip, which was discontinued last evening. Lasix at 40 mg q.8 hours. His weight is significantly decreased. The patient has had good urine output. He had developed metabolic alkalosis for which Diamox was started. PHYSICAL EXAMINATION: On examination today, patient is sleepy but arousable. Blood pressure is 111/47, heart rate 78 per minute. He is afebrile. EXAMINATION OF THE HEART: S1 and S2. EXAMINATION OF THE LUNGS: Bilateral breath sounds are heard. Abdomen is soft, nontender. Examination of the lower extremities shows edema 1+ bilaterally. Wrinkling of the skin is noted. LABS: Labs reveal sodium 143, potassium 3.7, CO2 is 42, BUN 119, serum creatinine 2.3, hemoglobin 7.9 g/dL. ASSESSMENT: 1. Acute kidney injury mainly cardiorenal, currently improved volume status. Renal function is about the same. Lasix drip is discontinued. We will continue with the IV push Lasix for now. 2. Anemia with severe iron deficiency maintained on IV iron and also on Aranesp for anemia of chronic disease. 3. Hyperphosphatemia associated with renal failure, maintained on PhosLo. 4. Severe cardiomyopathy, ejection fraction of 20% to 25%. 5. Chronic kidney disease, NKF stage IV, secondary to nephrosclerosis and cardiorenal syndrome. Baseline creatinine about 1.6, which was the lowest on 08/22/2017. 6. Hypercalcemia of unclear etiology, most likely related to immobility. The PTH is appropriately low. There is no evidence of multiple myeloma. I will give 1 dose of pamidronate as the serum calcium continues to rise. Parathyroid related protein will also be ordered. 7. Metabolic alkalosis secondary to diuretics, maintained on Diamox, CO2 is slightly lower than yesterday. MMODL / IJN: [id number] /
--- NOTE | 2017-09-03 11:47 | P.PN ---
Subjective Progress Note Date: 09/03/17 Principal diagnosis: CHF This is a pleasant 82-year-old gentleman who was just discharged from the hospital on the sixth of this month, in the hospital at that time with congestive cardiac failure, he was discharged to [facility], readmitted on this occasion with symptoms of worsening shortness of breath with associated weakness. Patient has a known history of coronary artery disease with prior bypass surgery, hyperlipidemia, renal insufficiency, chronic persistent atrial fibrillation, not on anticoagulation because of history of GI bleed, congestive cardiac failure, COPD, hypertension. His EKG on admission showed atrial fibrillation with a right bundle branch block pattern. Chest x-ray showed bibasilar infiltrates, atelectasis or pneumonia could be considered at the right base. Left base has improved. Blood pressure 128/60 with a heart rate in the 70s, afebrile. Oxygen saturation on admission 89% on BiPAP this morning 95% on 4 L. White blood cell count 6.7, hemoglobin 7.3, platelet count 248. Sodium 141, potassium 3.9, BUN 99, creatinine 1.9. Troponin 0.11, 0.09, 0.08. BNP level 29,100. Echo with Doppler study was done on this recent admission which revealed an ejection fraction of 35-40%. Moderate to severe MR, severe TR , severe pulmonary hypertension. Patient was given one dose of IV Lasix in the emergency room, diuresed well from that. At the time of my examination this morning, feeling extremely weak, mildly short of breath, however he states not any more significant than his usual. 09/01/2017 Patient seen and examined this morning, significantly improved from yesterday. Weight is down 3 kg today. Patient did receive a blood transfusion as well as IV iron transfusion. White blood cell count 9.4, hemoglobin 7.6, platelet count 233. Sodium 141, potassium 3.1, BUN 109, creatinine 2.2. 09/02/2017 Patient seen and examined this morning, again feeling significantly better today. Hemoglobin today is 7.9, sodium 142, potassium 53.5, BUN 117, creatinine 2.2. Diuresed well through the night on IV Lasix drip. Patient was seen by nephrology this morning, Lasix drip was discontinued and patient will be initiated on Diamox. We'll repeat a chest x-ray as well today. 09/03/2017 Patient seen and examined this morning, very confused today. Sodium 143, potassium 3.7, CO2 42, BUN 119, creatinine 2.3. His weight is down 3 kg today. Chest x-ray performed reveals persistent cardiomegaly with small right greater than left pleural effusions. Increasing right-sided mid to basilar obesity noted suggesting worsening effusion and or right mid to lower lung atelectasis and/or infiltrate. Objective - Vital Signs Vital signs: Vital Signs Temp 97.5 F L 09/03/17 09:02 Pulse 96 09/03/17 09:02 Resp 18 09/03/17 09:02 BP 111/47 09/03/17 09:02 Pulse Ox 92 L 09/03/17 09:02 Intake & Output 09/02/17 09/03/17 09/03/17 18:59 06:59 18:59 Intake Total 710 10 Output Total 1000 1150 200 Balance -290 -1140 -200 Weight 70.5 kg Intake: IV 10 .9 10 Oral 710 Output: Urine 1000 1150 200 Uretheral (Earl) 400 Other: Voiding Method Indwelling Catheter Indwelling Catheter Indwelling Catheter # Bowel Movements 2 1 - Exam PHYSICAL EXAMINATION: HEENT: Head is atraumatic, normocephalic. Pupils equal, round. Neck is supple. There is elevated jugular venous pressure. HEART EXAMINATION: Heart S1 and S2 irregularly irregular a systolic ejection murmur is heard. CHEST EXAMINATION: Lungs are clear with diminished air entry to bilateral bases. ABDOMEN: Soft, mild tenderness in the right upper quadrant . Bowel sounds are heard. No organomegaly noted. EXTREMITIES: 1+ peripheral pulses with trace bilateral peripheral edema. NEUROLOGIC patient is awake, confused. . - Labs CBC & Chem 7: 09/02/17 08:12 09/03/17 05:34 Labs: Abnormal Lab Results - Last 24 Hours (Table) 09/03/17 Range/Units 05:34 Chloride 87 L (98-107) mmol/L Carbon Dioxide 42 H* (22-30) mmol/L BUN 119 H* (9-20) mg/dL Creatinine 2.30 H (0.66-1.25) mg/dL Glucose 122 H (74-99) mg/dL Calcium 11.5 H (8.4-10.2) mg/dL Microbiology - Last 24 Hours (Table) 08/30/17 21:23 Blood Culture - Preliminary Blood No Growth after 72 hours Assessment and Plan Plan: Assessment and plan #1 systolic congestive heart failure acute on chronic #2 known history of coronary artery disease with prior bypass surgery #3 chronic persistent atrial fibrillation, not on anticoagulation because of history of GI bleeding #3 history of valve replacement #4 COPD #5 hypertension #6 hyperlipidemia #7 acute on chronic kidney disease #8 abnormal troponin, likely secondary to abnormal renal function. #9 anemia Plan From cardiology's perspective, we will discontinue the IV Lasix and start the patient on oral diuretics. DNP note has been reviewed, I agree with a documented findings and plan of care. Patient was seen and examined.
[2017-09-03] MEDS ORDERED: ZOLEDRONIC ACID 4 MG in SODIUM CHLORIDE 0.9% 100 ML IV ONE (12:00)
--- NOTE | 2017-09-03 13:50 | P.PN ---
Subjective 82-year-old gentleman admitted for the can start failure exacerbation and patient is on the IV Lasix drip with significant improvement in pedal edema patient still feels the same. 09/02/2017 Patient's respiratory status improved significantly patient the cecum any of some shortness of breath patient has mild worsening in creatinine. Patient is being followed by nephrology and cardiology. 09/03/2017 Patient is bit confused today no other significant changes in his clinical status his a BUN has worsened. Constitutional: Denied any fatigue denied any fever. Cardio vascular: denied any chest pain, palpitations Gastrointestinal denied any nausea vomiting Pulmonary: As mentioned in the HPI Neurologic denied any new focal deficits Objective - Vital Signs Vital signs: Vital Signs Temp 97.7 F 09/03/17 11:44 Pulse 96 09/03/17 11:44 Resp 18 09/03/17 11:44 BP 111/51 09/03/17 11:44 Pulse Ox 95 09/03/17 11:44 Intake & Output 09/02/17 09/03/17 09/03/17 18:59 06:59 18:59 Intake Total 710 10 Output Total 1000 1150 200 Balance -290 -1140 -200 Weight 70.5 kg Intake: IV 10 .9 10 Oral 710 Output: Urine 1000 1150 200 Uretheral (Earl) 400 Other: Voiding Method Indwelling Catheter Indwelling Catheter Indwelling Catheter # Bowel Movements 2 1 - Exam PHYSICAL EXAMINATION: GENERAL: The patient is alert and oriented x3, not in any acute distress. Well developed, well nourished. HEENT: Pupils are round and equally reacting to light. EOMI. No scleral icterus. No conjunctival pallor. Normocephalic, atraumatic. No pharyngeal erythema. No thyromegaly. CARDIOVASCULAR: S1 and S2 present. No murmurs, rubs, . Improved JVD PULMONARY:crackles minimal were appreciated ABDOMEN: Soft, nontender, nondistended, normoactive bowel sounds. No palpable organomegaly. MUSCULOSKELETAL: No joint swelling or deformity. EXTREMITIES: No cyanosis, clubbing. Pedal edema resolved NEUROLOGICAL: Gross neurological examination did not reveal any focal deficits. SKIN: No rashes. - Labs CBC & Chem 7: 09/02/17 08:12 09/03/17 05:34 Labs: Abnormal Lab Results - Last 24 Hours (Table) 09/03/17 Range/Units 05:34 Chloride 87 L (98-107) mmol/L Carbon Dioxide 42 H* (22-30) mmol/L BUN 119 H* (9-20) mg/dL Creatinine 2.30 H (0.66-1.25) mg/dL Glucose 122 H (74-99) mg/dL Calcium 11.5 H (8.4-10.2) mg/dL Microbiology - Last 24 Hours (Table) 08/30/17 21:23 Blood Culture - Preliminary Blood No Growth after 72 hours Assessment and Plan Plan: -acute hypoxic respiratory failure: Secondary to congestive heart failure exacerbation patient on IV Lasix continue to monitor basic metabolic profile creatinine baseline is around 1.9. 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 -COPD without any significant exacerbation patient is on antibiotics from previous hospitalization which will be continued -Coronary artery disease next and-hypertension -Osteoarthritis For above-mentioned chronic medical problems patient will be resumed and continued on appropriate home medications.
[2017-09-03] MEDS: ASPIRIN 81 MG PO SCH (16:30)
[2017-09-03] MEDS: FUROSEMIDE 40 MG TAB PO SCH (16:30)
[2017-09-03] MEDS: ATORVASTATIN 20 MG TAB PO SCH (19:56)
[2017-09-04] MEDS: CARVEDILOL 3.125 MG TAB PO SCH ×2 (06:56→16:29)
[2017-09-04 06:58] LABS: Calcium 10.7 mg/dL (8.4-10.2); Potassium 3.7 mmol/L (3.5-5.1)
[2017-09-04] MEDS ORDERED: LEVOFLOXACIN 500MG-D5W PMX 500 MG in DEXTROSE/WATER 1 100ML.BAG IVPB SCH (08:00)
[2017-09-04 08:37] LABS: Anisocytosis Moderate; HCT 21.8 % (39.0-53.0); Hypochromasia Marked; MCH 30.4 pg (25.0-35.0); MCHC 28.8 g/dL (31.0-37.0); Macrocytosis Marked; Mean Platelet Volume 9.8; Platelet Count 198 k/uL (150-450); Poikilocytosis Slight; RBC 2.07 m/uL (4.30-5.90); RDW 22.9 % (11.5-15.5)
[2017-09-04 08:43] LABS: HGB 6.3 gm/dL (13.0-17.5)
[2017-09-04 08:44] LABS: MCV 105.4 fL (80.0-100.0)
[2017-09-04] MEDS ORDERED: CEFUROXIME 250 MG TAB PO SCH (09:00)
[2017-09-04 09:19] LABS: Band Neutrophils % 1 %; Lymphocytes # (M) 0.08 k/uL (1.0-4.8); Metamyelocytes # (M) 0.17 k/uL (0); Metamyelocytes % 2 %; Monocytes # (M) 0.25 k/uL (0-1.0); Neutrophils % (M) 95 %; Nucleated Red Blood Cells 1 /100 WBC (0-0); Total Cells Counted 200
[2017-09-04 09:20] LABS: Polychromasia Present; Spherocytes Present; Tear Drop Cells Present; WBC 8.3 k/uL (3.8-10.6)
[2017-09-04] MEDS: HEPARIN SODIUM,PORCINE 5,000 UNIT/ML 1 ML VIAL SQ SCH (10:11)
[2017-09-04] MEDS: POTASSIUM CHLORIDE ER 20 MEQ TAB.ER PO SCH (10:34)
[2017-09-04] MEDS: METOLAZONE 2.5 MG TAB PO SCH (10:34)
[2017-09-04] MEDS: FERROUS SULFATE 325 MG TAB PO SCH (10:34)
[2017-09-04] MEDS: FOLIC ACID 1 MG TAB PO SCH (10:34)
[2017-09-04] MEDS: FUROSEMIDE 40 MG TAB PO SCH ×2 (10:34→16:29)
[2017-09-04] MEDS: ASCORBIC ACID 500 MG TAB PO SCH ×2 (10:34→16:29)
[2017-09-04] MEDS: POLYETHYLENE GLYCOL 3350 17 GM POWD.PACK PO SCH (10:35)
--- NOTE | 2017-09-04 12:08 | P.PN ---
Subjective Progress Note Date: 09/04/17 Principal diagnosis: Congestive heart failure This is a pleasant 82-year-old gentleman who just was discharged from the hospital recently after he was admitted with congestive heart failure and underwent right pleurocentesis, presented back to the hospital with progressive dyspnea associated with weakness. The patient was diagnosed with congestive heart failure exacerbation again and he was started on Lasix IV and switch to Lasix by mouth yesterday. Beside that he does have history of coronary artery disease and status post CABG, chronic atrial fibrillation, hypertension, dyslipidemia, and chronic renal insufficiency. The last echocardiogram from July 2017 indicated impaired LV function with an ejection fraction of 35% with evidence of moderate to severe MR and severe pulmonary hypertension. On follow-up with him today, he is slightly lethargic. Denies having any chest pain. He stated that the shortness of breath is better. Reviewing the blood work indicated severe anemia with a hemoglobin around 6 and the patient is in process of receiving one unit of packed RBC. Objective - Vital Signs Vital signs: Vital Signs Temp 95.7 F L 09/04/17 11:44 Pulse 66 09/04/17 11:56 Resp 14 09/04/17 11:56 BP 95/43 09/04/17 11:56 Pulse Ox 100 09/04/17 11:56 Intake & Output 09/03/17 09/04/17 09/04/17 18:59 06:59 18:59 Intake Total 180 0 Output Total 450 275 500 Balance -270 -275 -500 Weight 69.5 kg Intake: Oral 180 Blood Product 0 Rc As-1 Unit 0 [id number] Output: Urine 450 275 500 Other: Voiding Method Indwelling Catheter Indwelling Catheter Indwelling Catheter # Voids 1 # Bowel Movements 1 - Constitutional General appearance: Present: no acute distress - Respiratory Respiratory: bilateral: diminished - Cardiovascular Rhythm: irregularly irregular Heart sounds: normal: S1, S2 Abnormal Heart Sounds: Present: systolic murmur - Labs CBC & Chem 7: 09/04/17 07:59 09/04/17 06:19 Labs: Abnormal Lab Results - Last 24 Hours (Table) 09/04/17 09/04/17 09/04/17 Range/Units 06:19 07:59 08:09 RBC 2.07 L (4.30-5.90) m/uL Hgb 6.3 L* D (13.0-17.5) gm/dL Hct 21.8 L (39.0-53.0) % MCV 105.4 H D (80.0-100.0) fL MCHC 28.8 L (31.0-37.0) g/dL RDW 22.9 H (11.5-15.5) % Neutrophils # (Manual) 7.90 H (1.3-7.7) k/uL Lymphocytes # (Manual) 0.08 L (1.0-4.8) k/uL Metamyelocytes # (Man) 0.17 H (0) k/uL Nucleated RBCs 1 H (0-0) /100 WBC Chloride 90 L (98-107) mmol/L Carbon Dioxide 42 H* (22-30) mmol/L BUN 138 H* (9-20) mg/dL Creatinine 2.59 H (0.66-1.25) mg/dL Glucose 104 H (74-99) mg/dL Calcium 10.7 H (8.4-10.2) mg/dL Crossmatch See Detail Microbiology - Last 24 Hours (Table) 08/30/17 21:23 Blood Culture - Preliminary Blood No Growth after 96 hours Assessment and Plan Assessment: Assessment #1 congestive heart failure exacerbation related to systolic dysfunction. Currently the patient is a euvolemic. #2 severe cardiomyopathy with an ejection fraction of 35% #3 valvular heart disease with moderate to severe MR #4 known CAD and prior revascularization #5 chronic persistent atrial fibrillation #6 multiple comorbid conditions Plan #1 the patient was switched to Lasix by mouth yesterday we will continue that #2 the hemoglobin is low and he is in process of receiving blood #3 from the cardiovascular standpoint overview, no need for any further cardiac workup. We'll follow-up with the patient on when necessary case.
--- NOTE | 2017-09-04 12:41 | P.PN ---
Subjective 82-year-old gentleman admitted for the can start failure exacerbation and patient is on the IV Lasix drip with significant improvement in pedal edema patient still feels the same. 09/02/2017 Patient's respiratory status improved significantly patient the cecum any of some shortness of breath patient has mild worsening in creatinine. Patient is being followed by nephrology and cardiology. 09/03/2017 Patient is bit confused today no other significant changes in his clinical status his a BUN has worsened. 09/04/2017\ patient is extremely lethargic sleeping unable to provide me any history. Earlier today patient hemoglobin has come down to 6.2 and a bit of blood transfusion was ordered. Later in the day I did had extensive discussion with the daughter. Since his last hospitalization patient has extreme poor functionality. was doing okay at home with help of home care for last hospitalization. But any other ago patient had similar problems and hospitalization for 2 months. In spite of aggressive treatment patient clinical condition continued to worsen and I do not expect him to return back to his previous functionality couple months ago because of which I believe patient is more appropriate for hospice and patient's Karnofsky score is very low. Hospice was consulted after medical power of assistant county attorney his daughter is agreeable with the decision and she will talk to hospice services and further management depending on that evaluation. For now for continue with the aggressive therapy. Patient will be DO NOT RESUSCITATE Objective - Vital Signs Vital signs: Vital Signs Temp 95.7 F L 09/04/17 11:44 Pulse 66 09/04/17 11:56 Resp 14 09/04/17 11:56 BP 95/43 09/04/17 11:56 Pulse Ox 100 09/04/17 11:56 Intake & Output 09/03/17 09/04/17 09/04/17 18:59 06:59 18:59 Intake Total 180 0 Output Total 450 275 500 Balance -270 -275 -500 Weight 69.5 kg Intake: IV 0 .9 0 Oral 180 Blood Product 0 Rc As-1 Unit 0 [id number] Output: Urine 450 275 500 Other: Voiding Method Indwelling Catheter Indwelling Catheter Indwelling Catheter # Voids 1 # Bowel Movements 1 - Exam PHYSICAL EXAMINATION: GENERAL: Patient is severely lethargic and able to provide me any history. HEENT: Pupils are round and equally reacting to light. EOMI. No scleral icterus. No conjunctival pallor. Normocephalic, atraumatic. No pharyngeal erythema. No thyromegaly. CARDIOVASCULAR: S1 and S2 present. No murmurs, rubs, . Improved JVD PULMONARY:crackles minimal were appreciated ABDOMEN: Soft, nontender, nondistended, normoactive bowel sounds. No palpable organomegaly. MUSCULOSKELETAL: No joint swelling or deformity. EXTREMITIES: No cyanosis, clubbing. Pedal edema resolved NEUROLOGICAL: Gross neurological examination did not reveal any focal deficits. SKIN: No rashes. - Labs CBC & Chem 7: 09/04/17 07:59 09/04/17 06:19 Labs: Abnormal Lab Results - Last 24 Hours (Table) 09/04/17 09/04/17 09/04/17 Range/Units 06:19 07:59 08:09 RBC 2.07 L (4.30-5.90) m/uL Hgb 6.3 L* D (13.0-17.5) gm/dL Hct 21.8 L (39.0-53.0) % MCV 105.4 H D (80.0-100.0) fL MCHC 28.8 L (31.0-37.0) g/dL RDW 22.9 H (11.5-15.5) % Neutrophils # (Manual) 7.90 H (1.3-7.7) k/uL Lymphocytes # (Manual) 0.08 L (1.0-4.8) k/uL Metamyelocytes # (Man) 0.17 H (0) k/uL Nucleated RBCs 1 H (0-0) /100 WBC Chloride 90 L (98-107) mmol/L Carbon Dioxide 42 H* (22-30) mmol/L BUN 138 H* (9-20) mg/dL Creatinine 2.59 H (0.66-1.25) mg/dL Glucose 104 H (74-99) mg/dL Calcium 10.7 H (8.4-10.2) mg/dL Crossmatch See Detail Microbiology - Last 24 Hours (Table) 08/30/17 21:23 Blood Culture - Preliminary Blood No Growth after 96 hours Assessment and Plan Plan: -acute hypoxic respiratory failure: Secondary to congestive heart failure exacerbation patient on IV Lasix continue to monitor basic metabolic profile creatinine baseline is around 1.9. 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
--- NOTE | 2017-09-04 15:34 | PN ---
PROGRESS NOTE Patient is seen for followup for acute kidney injury which was mainly cardiorenal. Patient was started on Lasix drip after admission. He improved in terms of his volume status. Renal function stayed fairly stable, with creatinine at about 2.2 mg/dL. The Lasix drip was discontinued 2 days ago and patient was started on IV push Lasix. This morning he is noted to be much more weak and very lethargic, not easily arousable. Hemoglobin has dropped to 6.3 g/dL. Respiratory status is stable. Patient has underlying severe cardiomyopathy with ejection fraction 20% to 25%. Family has been talked to regarding code status with consideration for possible hospice. On examination, blood pressure this morning was 94/54. EXAMINATION OF THE HEART: S1, S2. EXAMINATION OF LUNGS: Bilateral breath sounds are heard. Decreased breath sounds at the bases. ABDOMEN: Soft, non-tender. Examination of lower extremities shows much improved edema bilaterally. Lab show sodium 143, potassium 3.7. CO2 is 42. Hemoglobin 6.3 g/dL, platelet count of 198,000 and serum calcium 10.7. ASSESSMENT: 1. Acute kidney injury, initially cardiorenal, currently secondary to severe anemia. Serum creatinine has worsened today. I will decrease the dose of Lasix. Patient will be transfused packed RBCs as well. Overall prognosis is guarded. 2. Metabolic alkalosis secondary to diuresis, maintained on Diamox. 3. Disproportionately elevated BUN. Rule out underlying GI bleed. 4. Hypercalcemia with appropriately low PTH initially at 10, and repeat level was at 19. Parathyroid-related protein was ordered, and it was inaccurately ordered again as PTH. Vitamin D level is not high and immunofixation did not reveal any monoclonal proteins. Patient did receive 1 dose of yesterday. He was on PhosLo, which was also discontinued. 5. Severe cardiomyopathy, ejection fraction 20% to 25%. PLAN: Agree with p.o. Lasix. Overall prognosis is guarded. Repeat labs in a.m. Agree with consideration for hospice care. MMODL / IJN: [id number] /
[2017-09-04] MEDS: ASPIRIN 81 MG PO SCH (16:29)
[2017-09-04 16:52] VITALS: BP 100/52; PULSE 73; RESP 16; TEMP 96.7
--- NOTE | 2017-09-05 11:15 | P.DS ---
Providers Date of admission: 08/30/17 22:58 Attending physician: Dash Roper Consults: 08/30/17 22:58 Consult Physician Routine Consulting Provider: Bhavesh Thomas Consult Reason/Comments: CHF exacerbation Do you want consulting provider notified?: Yes 08/31/17 08:39 Consult Physician Routine Consulting Provider: Alicai Cain Consult Reason/Comments: renal failure Do you want consulting provider notified?: Already Contacted Primary care physician: Ronak Gutierrezqvi [facility] Course: Patient was made hospice please refer to the discussion that was done in the progress note for further details Patient Condition at Discharge: Poor Plan - Discharge Summary Discharge Rx Participant: No New Discharge Prescriptions: No Action Nitroglycerin Sl Tabs [Nitrostat] 0.4 mg SUBLINGUAL Q5M PRN PRN Reason: Chest Pain Ferrous Sulfate [Iron (65 MG Elemental)] 325 mg PO BID Calcium Acetate [PhosLo] 667 mg PO TID-W/MEALS Carvedilol [Coreg] 3.125 mg PO BID Polyethylene Glycol 3350 [Miralax] 17 gm PO DAILY Folic Acid 1 mg PO DAILY@1700 Atorvastatin [Lipitor] 20 mg PO DAILY@2100 Ascorbic Acid [Vitamin C] 500 mg PO TID Cefuroxime [Ceftin] 250 mg PO BID #4 tablet Ipratropium-Albuterol Nebulize [Duoneb 0.5 mg-3 mg/3 ml Soln] 3 ml INHALATION RT-QID PRN ampul.neb PRN Reason: Shortness Of Breath Or Wheezing Metolazone [Zaroxolyn] 2.5 mg PO DAILY tab Bumetanide 2 mg PO BID #0 HYDROcodone/APAP 5-325MG [[place] 5-325] 1 tab PO Q6H PRN #20 tab PRN Reason: Pain Aspirin EC [Ecotrin Low Dose] 81 mg PO DAILY@1700 Bisacodyl [Dulcolax] 10 mg RECTAL DAILY PRN PRN Reason: Constipation Magnesium Hydroxide [Milk of Magnesia] 2,400 mg PO DAILY PRN PRN Reason: Constipation Na Phos,M-B/Na Phos,Di-Ba [Fleet Adult] 133 ml RECTAL DAILY PRN PRN Reason: Constipation Potassium Chloride ER [K-Dur 20] 20 meq PO DAILY@1700 Discharge Medication List Atorvastatin [Lipitor] 20 mg PO DAILY@2100 05/10/17 [History] Calcium Acetate [PhosLo] 667 mg PO TID-W/MEALS 05/10/17 [History] Carvedilol [Coreg] 3.125 mg PO BID 05/10/17 [History] Ferrous Sulfate [Iron (65 MG Elemental)] 325 mg PO BID 05/10/17 [History] Folic Acid 1 mg PO DAILY@1700 05/10/17 [History] Nitroglycerin Sl Tabs [Nitrostat] 0.4 mg SUBLINGUAL Q5M PRN 05/10/17 [History] Polyethylene Glycol 3350 [Miralax] 17 gm PO DAILY 05/10/17 [History] Ascorbic Acid [Vitamin C] 500 mg PO TID 08/19/17 [History] Bumetanide 2 mg PO BID #0 08/28/17 [Rx] Cefuroxime [Ceftin] 250 mg PO BID #4 tablet 08/28/17 [Rx] HYDROcodone/APAP 5-325MG [[place] 5-325] 1 tab PO Q6H PRN #20 tab 08/28/17 [Rx] Ipratropium-Albuterol Nebulize [Duoneb 0.5 mg-3 mg/3 ml Soln] 3 ml INHALATION RT -QID PRN ampul.neb 08/28/17 [Rx] Metolazone [Zaroxolyn] 2.5 mg PO DAILY tab 08/28/17 [Rx] Aspirin EC [Ecotrin Low Dose] 81 mg PO DAILY@1700 08/31/17 [History] Bisacodyl [Dulcolax] 10 mg RECTAL DAILY PRN 08/31/17 [History] Magnesium Hydroxide [Milk of Magnesia] 2,400 mg PO DAILY PRN 08/31/17 [History] Na Phos,M-B/Na Phos,Di-Ba [Fleet Adult] 133 ml RECTAL DAILY PRN 08/31/17 [ History] Potassium Chloride ER [K-Dur 20] 20 meq PO DAILY@1700 08/31/17 [History] Follow up Appointment(s)/Referral(s): Ronak Chairez MD [Primary Care Provider] - 1-2 days Discharge Disposition: [facility] TO [facility]
== END 2017-09-04 19:40 | disposition hospice, inpatient (51) | DRG 291 ==
LOC: EC 21:15 → 6SEL 22:58
PROVIDERS: ADMIT Hospitalist; ATTEND Hospitalist
PROC: 30233N1 Transfusion of Nonautologous Red Blood Cells into Peripheral Vein, Percutaneous Approach (ICD-10-PCS; principal; 2017-08-31)
DX: I13.0 Hypertensive heart and chronic kidney disease with heart failure and stage 1 through stage 4 chronic kidney disease, or unspecified chronic kidney disease (principal); I50.23 Acute on chronic systolic (congestive) heart failure; J96.01 Acute respiratory failure with hypoxia; E87.3 Alkalosis; N18.4 Chronic kidney disease, stage 4 (severe); N17.9 Acute kidney failure, unspecified; E83.39 Other disorders of phosphorus metabolism; E83.52 Hypercalcemia; I08.1 Rheumatic disorders of both mitral and tricuspid valves; I27.20 Pulmonary hypertension, unspecified; Z66 Do not resuscitate; D63.1 Anemia in chronic kidney disease; D50.9 Iron deficiency anemia, unspecified; E78.5 Hyperlipidemia, unspecified; E87.6 Hypokalemia; I25.10 Atherosclerotic heart disease of native coronary artery without angina pectoris; I25.2 Old myocardial infarction; I42.9 Cardiomyopathy, unspecified; I45.10 Unspecified right bundle-branch block; I48.2 Chronic atrial fibrillation; J44.9 Chronic obstructive pulmonary disease, unspecified; M19.90 Unspecified osteoarthritis, unspecified site; M89.9 Disorder of bone, unspecified; T50.2X5A Adverse effect of carbonic-anhydrase inhibitors, benzothiadiazides and other diuretics, initial encounter; M54.9 Dorsalgia, unspecified; G89.29 Other chronic pain; R77.8 Other specified abnormalities of plasma proteins; Z79.82 Long term (current) use of aspirin; Z79.899 Other long term (current) drug therapy; Z80.0 Family history of malignant neoplasm of digestive organs; Z87.891 Personal history of nicotine dependence; Z95.1 Presence of aortocoronary bypass graft; Z95.2 Presence of prosthetic heart valve; Z79.891 Long term (current) use of opiate analgesic; Z87.820 Personal history of traumatic brain injury; Z91.81 History of falling; Z98.49 Cataract extraction status, unspecified eye; Z95.828 Presence of other vascular implants and grafts
CPT/HCPCS: 36415; 51702; 71045; 71046; 80048; 80053; 81001; 82306; 82553; 82607; 83735; 83880; 83970; 84484; 85025; 85027; 86334; 86335; 86850; 86900; 86901; 86920; 87040; 93005; 94640; 94660; 94760; 96365; 96375; 99285

== ENCOUNTER 2017-09-04 19:45 | Inpatient (IN) | payer MEDICAID, OTHER ==
[2017-09-04] MEDS ORDERED: ONDANSETRON 4 MG/2 ML VIAL IVP PRN (20:08)
[2017-09-04] MEDS ORDERED: LORazepam 2 MG/ML INJ IV PRN (20:08)
[2017-09-04] MEDS ORDERED: ACETAMINOPHEN SUPPOSITORY 650 MG SUPP RECTAL PRN (20:08)
[2017-09-04] MEDS ORDERED: MORPHINE SULFATE 4MG/4ML SYRG IV PRN (20:08)
[2017-09-05 08:20] VITALS: TEMP 96.9
[2017-09-05 09:47] VITALS: BP 108/64; PULSE 60; RESP 8
--- NOTE | 2017-09-05 10:15 | P.HPIM ---
History of Present Illness Patient is admitted to hospice. Patient will be on morphine as needed Ativan. Present medications will be discontinued Review of Systems Not applicable Past Medical History Past Medical History: Coronary Artery Disease (CAD), Heart Failure, COPD, Hyperlipidemia, Hypertension, Myocardial Infarction ([place]), Osteoarthritis (OA), Renal Disease Additional Past Medical History / Comment(s): Coronary artery disease, coronary artery bypass surgery, chronic atrial fibrillation, congestion heart failure with an ejection fraction of 30-35%, valvular heart disease with moderate to severe mitral regurgitation and severe tricuspid regurgitation and severe pulmonary hypertension, chronic lower oximetry edema, chronic pleural effusions , hypertension, hyperlipidemia, chronic renal failure, degenerative arthritis, gout, chronic back pain, chronic anemia, history of fall and closed head injury today that, COPD Last Myocardial Infarction Date:: unk History of Any Multi-Drug Resistant Organisms: None Reported Past Surgical History: Cholecystectomy, Coronary Bypass/CABG, Heart Catheterization Additional Past Surgical History / Comment(s): coronary artery bypass surgery performed in [facility] back in the 1980s, cataract surgery, cardiac catheterization, stenting of the renal arteries, bilateral carotid endarterectomies, cholecystectomy, questionable history of valve replacement although this is not clear Past Anesthesia/Blood Transfusion Reactions: No Reported Reaction Additional Past Anesthesia/Blood Transfusion Reaction / Comment(s): blood transfusions-no reaction Past Psychological History: No Psychological Hx Reported Smoking Status: Former smoker Past Alcohol Use History: None Reported Additional Past Alcohol Use History / Comment(s): started smoking at age 10(1946 ), quit 1960 smoked 1 ppd Past Drug Use History: None Reported - Past Family History Mother Family Medical History: No Reported History Additional Family Medical History / Comment(s): " from natural causes" Father Family Medical History: Cancer Additional Family Medical History / Comment(s): rectal cancer Medications and Allergies Home Medications Medication Instructions Recorded Confirmed Type Atorvastatin [Lipitor] 20 mg PO DAILY@2100 05/10/17 09/04/17 History Calcium Acetate [PhosLo] 667 mg PO TID-W/MEALS 05/10/17 09/04/17 History Carvedilol [Coreg] 3.125 mg PO BID 05/10/17 09/04/17 History Ferrous Sulfate [Iron (65 MG 325 mg PO BID 05/10/17 09/04/17 History Elemental)] Folic Acid 1 mg PO DAILY@1700 05/10/17 09/04/17 History Nitroglycerin Sl Tabs [Nitrostat] 0.4 mg SUBLINGUAL Q5M PRN 05/10/17 09/04/17 History Polyethylene Glycol 3350 [Miralax] 17 gm PO DAILY 05/10/17 09/04/17 History Ascorbic Acid [Vitamin C] 500 mg PO TID 08/19/17 09/04/17 History Bumetanide 2 mg PO BID #0 08/28/17 09/04/17 Rx Cefuroxime [Ceftin] 250 mg PO BID #4 tablet 08/28/17 09/04/17 Rx HYDROcodone/APAP 5-325MG [[place] 1 tab PO Q6H PRN #20 tab 08/28/17 09/04/17 Rx 5-325] Ipratropium-Albuterol Nebulize 3 ml INHALATION RT-QID PRN 08/28/17 09/04/17 Rx [Duoneb 0.5 mg-3 mg/3 ml Soln] ampul.neb Metolazone [Zaroxolyn] 2.5 mg PO DAILY tab 08/28/17 09/04/17 Rx Aspirin EC [Ecotrin Low Dose] 81 mg PO DAILY@1700 08/31/17 09/04/17 History Bisacodyl [Dulcolax] 10 mg RECTAL DAILY PRN 08/31/17 09/04/17 History Magnesium Hydroxide [Milk of 2,400 mg PO DAILY PRN 08/31/17 09/04/17 History Magnesia] Na Phos,M-B/Na Phos,Di-Ba [Fleet 133 ml RECTAL DAILY PRN 08/31/17 09/04/17 History Adult] Potassium Chloride ER [K-Dur 20] 20 meq PO DAILY@1700 08/31/17 09/04/17 History Allergies Allergy/AdvReac Type Severity Reaction Status Date / Time No Known Allergies Allergy Verified 09/04/17 20:52 Physical Exam Vitals: Vital Signs Temp Pulse Resp BP Pulse Ox 09/05/17 09:15 85 L 09/05/17 08:45 60 8 L 108/64 09/05/17 08:19 96.9 F L 83 16 129/72 91 L 09/05/17 08:05 60 8 L 09/04/17 20:13 97.1 F L 80 17 118/49 95 Intake and Output 09/04/17 09/05/17 09/05/17 22:59 06:59 14:59 Output Total 300 300 Balance -300 -300 Output: Urine 300 300 Other: Voiding Method Indwelling Catheter Indwelling Catheter # Bowel Movements 0 Weight 69.5 kg 68.5 kg Patient is comfortable without any pain Assessment and Plan Plan: Hospice: Continue with the morphine and Ativan as needed
--- NOTE | 2017-09-05 11:16 | P.DS ---
Providers Date of admission: 09/04/17 19:45 Attending physician: Dash Roper Primary care physician: Ronak Chairez Hospital Course: Patient is to general inpatient hospice today please refer to nursing documentation for further details of time of . Pulmonary cause of is congestive heart failure Plan - Discharge Summary New Discharge Prescriptions: No Action Nitroglycerin Sl Tabs [Nitrostat] 0.4 mg SUBLINGUAL Q5M PRN PRN Reason: Chest Pain Ferrous Sulfate [Iron (65 MG Elemental)] 325 mg PO BID Calcium Acetate [PhosLo] 667 mg PO TID-W/MEALS Carvedilol [Coreg] 3.125 mg PO BID Polyethylene Glycol 3350 [Miralax] 17 gm PO DAILY Folic Acid 1 mg PO DAILY@1700 Atorvastatin [Lipitor] 20 mg PO DAILY@2100 Ascorbic Acid [Vitamin C] 500 mg PO TID Cefuroxime [Ceftin] 250 mg PO BID #4 tablet Ipratropium-Albuterol Nebulize [Duoneb 0.5 mg-3 mg/3 ml Soln] 3 ml INHALATION RT-QID PRN ampul.neb PRN Reason: Shortness Of Breath Or Wheezing Metolazone [Zaroxolyn] 2.5 mg PO DAILY tab Bumetanide 2 mg PO BID #0 HYDROcodone/APAP 5-325MG [[place] 5-325] 1 tab PO Q6H PRN #20 tab PRN Reason: Pain Aspirin EC [Ecotrin Low Dose] 81 mg PO DAILY@1700 Bisacodyl [Dulcolax] 10 mg RECTAL DAILY PRN PRN Reason: Constipation Magnesium Hydroxide [Milk of Magnesia] 2,400 mg PO DAILY PRN PRN Reason: Constipation Na Phos,M-B/Na Phos,Di-Ba [Fleet Adult] 133 ml RECTAL DAILY PRN PRN Reason: Constipation Potassium Chloride ER [K-Dur 20] 20 meq PO DAILY@1700 Discharge Medication List Atorvastatin [Lipitor] 20 mg PO DAILY@2100 05/10/17 [History] Calcium Acetate [PhosLo] 667 mg PO TID-W/MEALS 05/10/17 [History] Carvedilol [Coreg] 3.125 mg PO BID 05/10/17 [History] Ferrous Sulfate [Iron (65 MG Elemental)] 325 mg PO BID 05/10/17 [History] Folic Acid 1 mg PO DAILY@1700 05/10/17 [History] Nitroglycerin Sl Tabs [Nitrostat] 0.4 mg SUBLINGUAL Q5M PRN 05/10/17 [History] Polyethylene Glycol 3350 [Miralax] 17 gm PO DAILY 05/10/17 [History] Ascorbic Acid [Vitamin C] 500 mg PO TID 08/19/17 [History] Bumetanide 2 mg PO BID #0 08/28/17 [Rx] Cefuroxime [Ceftin] 250 mg PO BID #4 tablet 08/28/17 [Rx] HYDROcodone/APAP 5-325MG [[place] 5-325] 1 tab PO Q6H PRN #20 tab 08/28/17 [Rx] Ipratropium-Albuterol Nebulize [Duoneb 0.5 mg-3 mg/3 ml Soln] 3 ml INHALATION RT -QID PRN ampul.neb 08/28/17 [Rx] Metolazone [Zaroxolyn] 2.5 mg PO DAILY tab 08/28/17 [Rx] Aspirin EC [Ecotrin Low Dose] 81 mg PO DAILY@1700 08/31/17 [History] Bisacodyl [Dulcolax] 10 mg RECTAL DAILY PRN 08/31/17 [History] Magnesium Hydroxide [Milk of Magnesia] 2,400 mg PO DAILY PRN 08/31/17 [History] Na Phos,M-B/Na Phos,Di-Ba [Fleet Adult] 133 ml RECTAL DAILY PRN 08/31/17 [ History] Potassium Chloride ER [K-Dur 20] 20 meq PO DAILY@1700 08/31/17 [History] Discharge Disposition: - Preliminary Cause of Preliminary Cause of : Congestive heart failure
== END 2017-09-05 13:30 | disposition expired | DRG 951 ==
LOC: 6SEL 19:45 → 5ONC 20:49
PROVIDERS: ADMIT Hospitalist; ATTEND Hospitalist
DX: Z51.5 Encounter for palliative care (principal); I11.0 Hypertensive heart disease with heart failure; I27.20 Pulmonary hypertension, unspecified; I08.1 Rheumatic disorders of both mitral and tricuspid valves; I50.9 Heart failure, unspecified; J44.9 Chronic obstructive pulmonary disease, unspecified; D64.9 Anemia, unspecified; I48.2 Chronic atrial fibrillation; Z66 Do not resuscitate; N28.9 Disorder of kidney and ureter, unspecified; I25.10 Atherosclerotic heart disease of native coronary artery without angina pectoris; E78.5 Hyperlipidemia, unspecified; I25.2 Old myocardial infarction; G89.29 Other chronic pain; M54.9 Dorsalgia, unspecified; M19.91 Primary osteoarthritis, unspecified site; Z79.82 Long term (current) use of aspirin; Z79.899 Other long term (current) drug therapy; Z95.1 Presence of aortocoronary bypass graft; Z87.39 Personal history of other diseases of the musculoskeletal system and connective tissue; Z91.81 History of falling; Z90.49 Acquired absence of other specified parts of digestive tract; Z98.49 Cataract extraction status, unspecified eye; Z95.828 Presence of other vascular implants and grafts; Z87.891 Personal history of nicotine dependence; Z87.820 Personal history of traumatic brain injury; Z80.0 Family history of malignant neoplasm of digestive organs